=== PATIENT | female | born 1945 | race Caucasian/White ===

== ENCOUNTER 2017-09-23 13:40 | Inpatient (IN) | payer MEDICARE, OTHER ==
[2017-09-23 13:41] VITALS: BP 123/58; PULSE 84; RESP 18; TEMP 98.9; O2SAT 97
[2017-09-23 14:43] VITALS: BP 136/86; PULSE 92; RESP 18; O2SAT 98
--- NOTE | 2017-09-23 14:53 | PD ---
HPI Chief Complaint: General Weakness Time Seen by Provider: 14:13 Travel History International Travel<30 days: No Contact w/Intl Traveler<30days: No Traveled to known affect area: No History of Present Illness HPI 72-year-old female presents to the emergency department stating "I don't feel well". She states that she has not felt well for several months. She was seen in another hospital, [facility] in [place]. She was seen for the same symptoms. It appears they did a lot of lab work and she was slightly anemic with a hemoglobin of 10.9. Patient states that she felt more weak this morning that she typically does and she came in the emergency department. Patient denies any fevers or chills. She reports chronic headaches, has no headache at this time. She also reports chronic neck pain, has no neck pain at this time. She denies any back pain. No chest pain or shortness of breath. No abdominal pain. No nausea, vomiting, constipation. She does report 2 loose bowel movements in the past 24 hours. She denies any blood in her stool. Patient denies any pain at this time. Patient has history of anxiety, atrial fibrillation, hypertension, chronic anticoagulation, chronic narcotic use, chronic pain, hypothyroidism, insomnia. Patient denies any syncope, dizziness. No exacerbating or alleviating factors. She states that her appetite has been increasing. She recently moved here from [place] and then will be moving to [place]. She came here 1 week ago. Moderate severity. PFSH Past Medical History Hx Anticoagulant Therapy: Yes Atrial Fibrillation: Yes Anxiety: Yes Cardiovascular Problems: Yes (HTN, AFIB) Hypertension: Yes Insomnia: Yes ?: Not Social History Alcohol Use: Yes (on occasion) Tobacco Use: No Substance Use: No Allergies-Medications (Allergen,Severity, Reaction): Coded Allergies: No Known Allergies (Unverified , 09/23/17) Reported Meds & Prescriptions Reported Meds & Active Scripts Active Reported Buspirone (Buspirone HCl) 15 Mg Tab 15 Mg PO BID Klor-Con 10 (Potassium Chloride) 10 Meq Tab 10 Meq PO DAILY Xarelto (Rivaroxaban) 20 Mg Tab 20 Mg PO DAILY [Focus Factor] 1 Tab PO DAILY Melatonin 10 Mg Tablet 10 Mg PO HS Synthroid (Levothyroxine Sodium) 150 Mcg Tab 150 Mcg PO DAILY Heartburn Relief (Cimetidine) 200 Mg Tab 1 Tab PO BID PRN Arthritis Pain Reliever ER 8 HR (Acetaminophen) 650 Mg Tab 650 Mg PO Q8HR PRN Norvasc (Amlodipine Besylate) 5 Mg Tab 5 Mg PO DAILY Celexa (Citalopram Hydrobromide) 40 Mg Tab 40 Mg PO DAILY Diclofenac Sodium DR (Diclofenac Sodium) 75 Mg Tabdr 75 Mg PO BID Losartan-Hydrochlorothiazide 100-25 Mg Tab 1 Tab PO DAILY Cosopt Opth Drops (Dorzolamide-Timolol Opth Drops) 22.3-6.8 Mg/Ml Soln 1 Drop EACH EYE BID Lumigan Opth Drops (Bimatoprost) 0.01% Soln 1 Drop EACH EYE HS Review of Systems Except as stated in HPI: all other systems reviewed are Neg Physical Exam Narrative GENERAL: Well-nourished, well-developed female patient, afebrile. Patient is alert. She knew she was in the hospital, the year is 2016. However, she cannot remember the president and leave the month was July. Family states this is chronic for her. SKIN: Focused skin assessment warm/dry. No lacerations or abrasions. HEAD: Normocephalic. Atraumatic. ENT: Mucosa pink and moist. No erythema or exudates. No uvular edema. No uvular , palatal, or tonsillar deviation. Airway patent. Nasal turbinates appear normal without nasal blood, purulent drainage or septal hematoma. Bilateral tympanic membranes are clear without erythema or perforation. EYES: No scleral icterus. No injection or drainage. EOM intact. NECK: Supple, trachea midline. No JVD or lymphadenopathy. CARDIOVASCULAR: Regular rate and rhythm without murmurs, gallops, or rubs. Bilateral radial and pedal pulses are 2+. RESPIRATORY: Breath sounds equal bilaterally. No accessory muscle use. Lungs sounds are clear to auscultation. GASTROINTESTINAL: Abdomen soft, non-tender, nondistended. No abdominal tenderness to palpation. MUSCULOSKELETAL: No cyanosis, or edema. Bilateral upper and lower extremity strength 5/5. All extremities are neurovascularly intact. BACK: Nontender without obvious deformity. No CVA tenderness. No midline spinal tenderness. NEUROLOGICAL: Awake and alert. Cranial nerves II through XII intact. Motor and sensory grossly within normal limits. Five out of 5 muscle strength in all muscle groups. Normal speech. Finger to nose is normal bilaterally. Heel-to- todd is normal bilaterally. Data Data Last Documented VS Vital Signs Date Time Temp Pulse Resp B/P (MAP) Pulse Ox O2 Delivery O2 Flow Rate FiO2 09/23/17 16:29 67 19 143/84 (103) 96 Room Air 09/23/17 13:41 98.9 Orders Orders Electrocardiogram (09/23/17 13:44) Basic Metabolic Panel (Bmp) (09/23/17 13:44) Ckmb (Isoenzyme) Profile (09/23/17 13:44) Complete Blood Count With Diff (09/23/17 13:44) Magnesium (Mg) (09/23/17 13:44) Prothrombin Time / Inr (Pt) (09/23/17 13:44) Act Partial Throm Time (Ptt) (09/23/17 13:44) Troponin I (09/23/17 13:44) Chest, Pa & Lat (09/23/17 13:44) Ammonia (09/23/17 14:49) Urinalysis - C+S If Indicated (09/23/17 14:49) Ct Brain W/O Iv Contrast(Rout) (09/23/17 14:49) Blood Glucose (09/23/17 14:49) Ecg Monitoring (09/23/17 14:49) Iv Access Insert/Monitor (09/23/17 14:49) Oximetry (09/23/17 14:49) Sodium Chloride 0.9% Flush (Ns Flush) (09/23/17 15:00) Sodium Chlorid 0.9% 500 Ml Inj (Ns 500 M (09/23/17 15:00) Thyroid Stimulating Hormone (09/23/17 14:57) CKMB (09/23/17 14:14) CKMB% (09/23/17 14:14) Potassium Chloride (Kcl) (09/23/17 16:15) Sodium Chlorid 0.9% 500 Ml Inj (Ns 500 M (09/23/17 16:30) Thyroxine (T4) (09/23/17 16:23) Labs Laboratory Tests Test 09/23/17 14:14 09/23/17 14:56 White Blood Count 7.1 TH/MM3 Red Blood Count 3.33 MIL/MM3 Hemoglobin 13.1 GM/DL Hematocrit 36.0 % Mean Corpuscular Volume 108.2 FL Mean Corpuscular Hemoglobin 39.3 PG Mean Corpuscular Hemoglobin Concent 36.4 % Red Cell Distribution Width 13.3 % Platelet Count 372 TH/MM3 Mean Platelet Volume 7.7 FL Neutrophils (%) (Auto) 73.5 % Lymphocytes (%) (Auto) 15.9 % Monocytes (%) (Auto) 9.1 % Eosinophils (%) (Auto) 1.0 % Basophils (%) (Auto) 0.5 % Neutrophils # (Auto) 5.2 TH/MM3 Lymphocytes # (Auto) 1.1 TH/MM3 Monocytes # (Auto) 0.6 TH/MM3 Eosinophils # (Auto) 0.1 TH/MM3 Basophils # (Auto) 0.0 TH/MM3 CBC Comment AUTO DIFF Prothrombin Time 10.6 SEC Prothromb Time International Ratio 1.0 RATIO Activated Partial Thromboplast Time 26.6 SEC Blood Urea Nitrogen 12 MG/DL Creatinine 0.80 MG/DL Random Glucose 101 MG/DL Calcium Level 8.6 MG/DL Magnesium Level 1.8 MG/DL Sodium Level 118 MEQ/L Potassium Level 3.1 MEQ/L Chloride Level 85 MEQ/L Carbon Dioxide Level 28.2 MEQ/L Anion Gap 5 MEQ/L Estimat Glomerular Filtration Rate 70 ML/MIN Total Creatine Kinase 183 U/L Troponin I LESS THAN 0.02 NG/ML Ammonia 32 MCMOL/L Thyroid Stimulating Hormone 3rd Gen 27.400 uIU/ML MDM Medical Decision Making Medical Screen Exam Complete: Yes Emergency Medical Condition: Yes Medical Record Reviewed: Yes Interpretation(s) chest x-ray - CONCLUSION: 1. No acute cardiopulmonary disease. 2. Mild wedge-shaped deformity of likely T11 vertebral body of unknown chronicity given lack of prior exams. MRI examination may be performed to evaluate for bone marrow edema if patient has symptoms corresponding to this level. CT brain - CONCLUSION: 1. No acute intracranial abnormality is identified. 2. Chronic changes include moderate generalized atrophy and moderate to severe periventricular white matter low attenuation characteristic of chronic microvascular ischemia. Differential Diagnosis Electrolyte abnormality versus dehydration versus ACS versus intracranial abnormality versus thyroid disorder Narrative Course 72-year-old female presents to the emergency department for evaluation of generalized weakness that she has had for several months. However, she states it is worse today. She's had workup previously for the same issue at another hospital. EKG shows atrial fibrillation, heart rate 67, no acute ST changes. CBC, BMP, CK, troponin, magnesium, PTT, PT/INR, ammonia level, TSH, UA are ordered and pending. Chest x-ray and CT of the brain are ordered and pending. CBC shows normal WBC 7.1. BMP shows hyponatremia 118, hypokalemia of 3.1. CK is 183. Troponin is less than 0.02. Magnesium is 1.8. Coags are unremarkable. Ammonia level is 32. TSH is 27.400. Coags are unremarkable. UA is pending. Chest x-ray shows no acute cardiopulmonary disease; Mild wedge- shaped deformity of likely T11 vertebral body of unknown chronicity given lack of prior exams; MRI examination may be performed to evaluate for bone marrow edema if patient has symptoms corresponding to this level. Patient has no tenderness to palpation over her spine. CT of the brain shows No acute intracranial abnormality is identified; Chronic changes include moderate generalized atrophy and moderate to severe periventricular white matter low attenuation characteristic of chronic microvascular ischemia. Patient is given total of normal saline 1 L IV bolus. She was given potassium 40 mEq by mouth. Hospitalist is paged for admission. Dr. Kellogg accepted admission. Diagnosis Primary Impression: Hyponatremia Additional Impression: Generalized weakness Admitting Information Admitting Physician Requests: Admit Tita Giron Sep 23, 2017 14:53
[2017-09-23] MEDS ORDERED: SODIUM CHLORID 0.9% 500 ML INJ 500 ML IV ONE ×2 (15:00→16:30)
[2017-09-23] MEDS ORDERED: SODIUM CHLORIDE 0.9% FLUSH 10 ML FLUSH IV FLUSH PRN (15:00)
[2017-09-23 15:09] VITALS: RESP 18; O2SAT 98
[2017-09-23 15:26] LABS: AUTOMATED NEUTROPHIL # 5.2 TH/MM3 (1.8-7.7); BASOPHIL % 0.5 % (0.0-2.0); EOSINOPHIL # 0.1 TH/MM3 (0-0.4); LYMPH % 15.9 % (9.0-44.0); LYMPHOCYTE # 1.1 TH/MM3 (1.0-4.8); MEAN CELL VOLUME 108.2 FL (80.0-100.0); MEAN CORPUSCULAR HEMOGLOBIN 39.3 PG (27.0-34.0); MONO % 9.1 % (0.0-8.0); NEUT % 73.5 % (16.0-70.0); PLATELET COUNT 372 TH/MM3 (150-450); RED BLOOD COUNT 3.33 MIL/MM3 (4.00-5.30); RED CELL DISTRIBUTION WIDTH 13.3 % (11.6-17.2); WHITE BLOOD COUNT 7.1 TH/MM3 (4.0-11.0)
--- NOTE | 2017-09-23 15:31 | RADRPT ---
EXAM DATE/TIME: 09/23/2017 14:10 [facility] COMPARISON: No previous studies available for comparison. INDICATIONS : General weakness and shortness of breath. MEDICAL HISTORY : Hypertension. AFIB. SURGICAL HISTORY : None. ENCOUNTER: Initial ACUITY: 1 week PAIN SCORE: 3/10 LOCATION: Bilateral chest FINDINGS: PA and lateral views of the chest demonstrate the lungs to be symmetrically aerated without evidence of mass, infiltrate or effusion. The cardiomediastinal contours are unremarkable. Mild wedge-shaped compression deformity of likely T11 vertebral body. Extensive degenerative changes of the right shoul khang. CONCLUSION: 1. No acute cardiopulmonary disease. 2. Mild wedge-shaped deformity of likely T11 vertebral body of unknown chronicity given lack of prior exams. MRI examination may be performed to evaluate for bone marrow edema if patient has symptoms correspond ing to this level. Calvin Lynch MD on September 23, 2017 at 15:27 Board Certified Radiologist. This report was verified electronically.
[2017-09-23 15:32] LABS: HEMO FLAGS AUTO DIFF; MEAN CORPUSCULAR HGB CONC 36.4 % (32.0-36.0)
[2017-09-23 15:34] LABS: APTT (PATIENT) 26.6 SEC (24.3-30.1); PROTHROMBIN TIME - PATIENT 10.6 SEC (9.8-11.6)
--- NOTE | 2017-09-23 15:47 | RADRPT ---
EXAM DATE/TIME: 09/23/2017 15:15 [facility] COMPARISON: No previous studies available for comparison. INDICATIONS : General weakness, worsening confusion for one week. RADIATION DOSE: 36.20 CTDIvol (mGy) MEDICAL HISTORY : Hypertension. A-fib SURGICAL HISTORY : None. ENCOUNTER: Initial ACUITY: 1 week PAIN SCALE: 0/10 LOCATION: cranial TECHNIQUE: Multiple contiguous axial images were obtained of the head. Using automated exposure control and adj ustment of the mA and/or kV according to patient size, radiation dose was kept as low as reasonably a chievable to obtain optimal diagnostic quality images. DICOM format image data is available electro nically for review and comparison. FINDINGS: CEREBRUM: There is moderate generalized atrophy. Ventricles are normal in size given the degree of atrophy pres ent. Moderate to severe periventricular and subcortical white matter signal changes present. No midl ine shift, mass lesion, hemorrhage or acute infarction. No extra-axial fluid collections are seen. POSTERIOR FOSSA: The cerebellum and brainstem demonstrate no acute finding. The 4th ventricle is midline. The cerebe llopontine angle is unremarkable. EXTRACRANIAL: Visualized sinuses are clear. SKULL: The calvaria is intact. No evidence of skull fracture. CONCLUSION: 1. No acute intracranial abnormality is identified. 2. Chronic changes include moderate generalized atrophy and moderate to severe periventricular white matter low attenuation characteristic of chronic microvascular ischemia. Jose L Gillespie MD on September 23, 2017 at 15:42 Board Certified Radiologist. This report was verified electronically.
[2017-09-23 16:05] LABS: ANION GAP 5 MEQ/L (5-15); BICARBONATE 28.2 MEQ/L (21.0-32.0); BLOOD UREA NITROGEN 12 MG/DL (7-18); CHLORIDE 85 MEQ/L (98-107); CREATINE KINASE 183 U/L (26-192); GLOMERULAR FILTRATION RATE 70 ML/MIN (>89); MAGNESIUM 1.8 MG/DL (1.5-2.5); POTASSIUM 3.1 MEQ/L (3.5-5.1)
[2017-09-23 16:08] LABS: SODIUM (NA) 118 MEQ/L (136-145)
[2017-09-23] MEDS ORDERED: XARE20TA PO (16:09)
[2017-09-23] MEDS ORDERED: HEARTAB PO (16:09)
[2017-09-23] MEDS ORDERED: KLOR10TA PO (16:09)
[2017-09-23] MEDS ORDERED: DICL75TA PO (16:09)
[2017-09-23] MEDS ORDERED: AMLO5 PO (16:09)
[2017-09-23] MEDS ORDERED: LOSA100T2 PO (16:09)
[2017-09-23] MEDS ORDERED: LUMI0.01 EACH EYE (16:09)
[2017-09-23] MEDS ORDERED: FOCUS FACTOR PO (16:09)
[2017-09-23] MEDS ORDERED: ARTH650T6 PO (16:09)
[2017-09-23] MEDS ORDERED: MELA10TA4 PO (16:09)
[2017-09-23] MEDS ORDERED: CELE40TA PO (16:09)
[2017-09-23] MEDS ORDERED: LEVO.15 PO (16:09)
[2017-09-23] MEDS ORDERED: DORZ2SOL7 EACH EYE (16:09)
--- NOTE | 2017-09-23 16:11 | PD ---
Physical Exam Narrative I, Dr. Navarro, have reviewed the advance practice practitioner's documentation and am in agreement, met with the patient face to face, made the diagnosis, and the medical decision making was done by me. *My assessment and Findings: Electrolyte abnormality vs. hypothyroidism vs. dehydration vs. dementia vs. delirium vs. UTI 72yo F with PMH of afib on xarelto, hypothyroidism here with c/o generalized weakness that is worst today. Pt is from [place] and visiting sister here. Sister said she has been with her for 1 week and there have been episodes of confusion. For example, pt would ask her what room she was in but she was just there. Labs reviewed, no leukocytosis. Hyponatremic at 118, no prior to compare. Hypokalemia at 3.1, replaced orally. Troponin negative. TSH elevated , T4 ordered. Ammonia 32. CT brain negative. CXR showed no acute cardiopulmonary disease. Wedge shape deformity likely T11 vertebral body of unknown chronicity. Pt has no back pain. No focal neurologic deficits. Pt given NS IVF. To be admitted for severe hyponatremia. UA pending. Data Data Last Documented VS Vital Signs Date Time Temp Pulse Resp B/P (MAP) Pulse Ox O2 Delivery O2 Flow Rate FiO2 09/23/17 16:29 67 19 143/84 (103) 96 Room Air 09/23/17 13:41 98.9 Orders Orders Electrocardiogram (09/23/17 13:44) Basic Metabolic Panel (Bmp) (09/23/17 13:44) Ckmb (Isoenzyme) Profile (09/23/17 13:44) Complete Blood Count With Diff (09/23/17 13:44) Magnesium (Mg) (09/23/17 13:44) Prothrombin Time / Inr (Pt) (09/23/17 13:44) Act Partial Throm Time (Ptt) (09/23/17 13:44) Troponin I (09/23/17 13:44) Chest, Pa & Lat (09/23/17 13:44) Ammonia (09/23/17 14:49) Urinalysis - C+S If Indicated (09/23/17 14:49) Ct Brain W/O Iv Contrast(Rout) (09/23/17 14:49) Blood Glucose (09/23/17 14:49) Ecg Monitoring (09/23/17 14:49) Iv Access Insert/Monitor (09/23/17 14:49) Oximetry (09/23/17 14:49) Sodium Chloride 0.9% Flush (Ns Flush) (09/23/17 15:00) Sodium Chlorid 0.9% 500 Ml Inj (Ns 500 M (09/23/17 15:00) Thyroid Stimulating Hormone (09/23/17 14:57) CKMB (09/23/17 14:14) CKMB% (09/23/17 14:14) Potassium Chloride (Kcl) (09/23/17 16:15) Sodium Chlorid 0.9% 500 Ml Inj (Ns 500 M (09/23/17 16:30) Thyroxine (T4) (09/23/17 16:23) Admit Order (Ed Use Only) (09/23/17 16:34) Labs Laboratory Tests Test 09/23/17 14:14 09/23/17 14:56 09/23/17 16:17 White Blood Count 7.1 TH/MM3 Red Blood Count 3.33 MIL/MM3 Hemoglobin 13.1 GM/DL Hematocrit 36.0 % Mean Corpuscular Volume 108.2 FL Mean Corpuscular Hemoglobin 39.3 PG Mean Corpuscular Hemoglobin Concent 36.4 % Red Cell Distribution Width 13.3 % Platelet Count 372 TH/MM3 Mean Platelet Volume 7.7 FL Neutrophils (%) (Auto) 73.5 % Lymphocytes (%) (Auto) 15.9 % Monocytes (%) (Auto) 9.1 % Eosinophils (%) (Auto) 1.0 % Basophils (%) (Auto) 0.5 % Neutrophils # (Auto) 5.2 TH/MM3 Lymphocytes # (Auto) 1.1 TH/MM3 Monocytes # (Auto) 0.6 TH/MM3 Eosinophils # (Auto) 0.1 TH/MM3 Basophils # (Auto) 0.0 TH/MM3 CBC Comment AUTO DIFF Differential Comment AUTO DIFF CONFIRMED Prothrombin Time 10.6 SEC Prothromb Time International Ratio 1.0 RATIO Activated Partial Thromboplast Time 26.6 SEC Blood Urea Nitrogen 12 MG/DL Creatinine 0.80 MG/DL Random Glucose 101 MG/DL Calcium Level 8.6 MG/DL Magnesium Level 1.8 MG/DL Sodium Level 118 MEQ/L Potassium Level 3.1 MEQ/L Chloride Level 85 MEQ/L Carbon Dioxide Level 28.2 MEQ/L Anion Gap 5 MEQ/L Estimat Glomerular Filtration Rate 70 ML/MIN Total Creatine Kinase 183 U/L Creatine Kinase MB 3.7 NG/ML Troponin I LESS THAN 0.02 NG/ML Ammonia 32 MCMOL/L Thyroid Stimulating Hormone 3rd Gen 27.400 uIU/ML Urine Color YELLOW Urine Turbidity HAZY Urine pH 6.5 Urine Specific [place] 1.009 Urine Protein NEG mg/dL Urine Glucose (UA) NEG mg/dL Urine Ketones TRACE mg/dL Urine Occult Blood NEG Urine Nitrite POS Urine Bilirubin NEG Urine Urobilinogen LESS THAN 2.0 MG/DL Urine Leukocyte Esterase MOD Urine RBC 1 /hpf Urine WBC 4 /hpf Urine Squamous Epithelial Cells <1 /hpf Urine Amorphous Sediment RARE Urine Bacteria MANY /hpf Urine Mucus FEW /lpf Microscopic Urinalysis Comment CATH-CULTURE IND MDM Supervised Visit with LORIE: Yes Interpretation(s) EKG: Afib at 67bpm. Diagnosis Primary Impression: Hyponatremia Admitting Information Admitting Physician Requests: Admit Erica Navarro DO Sep 23, 2017 16:10
[2017-09-23] MEDS ORDERED: POTASSIUM CHLORIDE 20 MEQ CONTROLLED RELEASE TAB PO ONE (16:15)
[2017-09-23 16:29] VITALS: BP 143/84; PULSE 67; RESP 19; O2SAT 96
[2017-09-23] MEDS ORDERED: BUSP15TA PO (16:32)
[2017-09-23 16:40] LABS: CKMB 3.7 NG/ML (0.5-3.6)
[2017-09-23 16:42] LABS: BACTERIA, URINE MANY /hpf; BLOOD, URINE NEG (NEG); COMMENT (UR) CATH-CULTURE IND; CULTURE IF INDICATED CATH CULTURE IND; GLUCOSE,URINE NEG (NEG); KETONE, URINE TRACE mg/dL (NEG); MUCUS URINE FEW /lpf (OCC); NITRITE,URINE POS (NEG); PH, URINE 6.5 (5.0-8.5); SQUAMOUS EPITHELIAL CELL URINE <1 /hpf (0-5); URINE COLOR YELLOW (YELLW/STRAW)
[2017-09-23 17:12] LABS: SCAN/DIFF AUTO DIFF CONFIRMED
[2017-09-23] MEDS ORDERED: BISACODYL 10 MG SUPP RECTAL PRN (17:45)
[2017-09-23] MEDS ORDERED: ONDANSETRON HCL 4 MG/2 ML VIAL IVP PRN (17:45)
[2017-09-23] MEDS ORDERED: ACETAMINOPHEN 325 MG TAB PO PRN (17:45)
[2017-09-23] MEDS ORDERED: MAGNESIUM HYDROXIDE SUSP 30 ML CUP PO PRN (17:45)
[2017-09-23] MEDS ORDERED: NALOXONE HCL 0.4 MG/ML AMP IV PUSH PRN (17:45)
--- NOTE | 2017-09-23 18:05 | HHI.HP ---
HPI Service [facility] Primary Care Physician No Primary Care Physician Admission Diagnosis hyponatremia, generalized weakness Diagnoses: Chief Complaint: Generalized weakness Travel History International Travel<30 Days: No Contact w/Intl Traveler <30 Da: No Traveled to Known Affected Are: No History of Present Illness Patient is a 72-year-old female with primary medical history of atrial fibrillation on Xarelto, HTN, anxiety, cataracts, glaucoma, hypothyroidism who came into the hospital for evaluation of generalized weakness and overall not feeling well. Patient states that for the past a week and a half she has not been feeling really well that she went to [facility] in [place] to be evaluated where and he did multiple labs on her, and have some anemia with hemoglobin 10.9. Patient states that she feels the same way from last week and that she has increasing neck pain. Patient also complaints of headache states tension related and palpitation and anxiety related. States headache comes from the back of her head going to the front but she attributes it that she is feeling hungry right now. Denies any numbness or tingling sensation. Denies unilateral weakness, denies change in vision. Denies any chest pain, palpitations, dizziness. Denies any abdominal pain, cramping, nausea, vomiting , diarrhea. Denies any fevers or chills. Denies falls, trauma. Sister at the bedside. Noted that patient is more confused in the past 2 days. She also has been noted to be drinking a lot of water possibly more than 2 L a day that is not her usual. Review of Systems Except as stated in HPI: all other systems reviewed are Neg Past Family Social History Past Medical History A. fib on Xarelto HTN Anxiety Cataracts Glaucoma Hypothyroidism Past Surgical History Bilateral knee replacements Bilateral knee arthroscopy Tonsillectomy Reported Medications Reported Meds & Active Scripts Active Reported Buspirone (Buspirone HCl) 15 Mg Tab 15 Mg PO BID Klor-Con 10 (Potassium Chloride) 10 Meq Tab 10 Meq PO DAILY Xarelto (Rivaroxaban) 20 Mg Tab 20 Mg PO DAILY [Focus Factor] 1 Tab PO DAILY Melatonin 10 Mg Tablet 10 Mg PO HS Synthroid (Levothyroxine Sodium) 150 Mcg Tab 150 Mcg PO DAILY Heartburn Relief (Cimetidine) 200 Mg Tab 1 Tab PO BID PRN Arthritis Pain Reliever ER 8 HR (Acetaminophen) 650 Mg Tab 650 Mg PO Q8HR PRN Norvasc (Amlodipine Besylate) 5 Mg Tab 5 Mg PO DAILY Celexa (Citalopram Hydrobromide) 40 Mg Tab 40 Mg PO DAILY Diclofenac Sodium DR (Diclofenac Sodium) 75 Mg Tabdr 75 Mg PO BID Losartan-Hydrochlorothiazide 100-25 Mg Tab 1 Tab PO DAILY Cosopt Opth Drops (Dorzolamide-Timolol Opth Drops) 22.3-6.8 Mg/Ml Soln 1 Drop EACH EYE BID [place] Opth Drops (Bimatoprost) 0.01% Soln 1 Drop EACH EYE HS Allergies: Coded Allergies: No Known Allergies (Unverified , 09/23/17) Active Ordered Medications Current Medications Medications (Trade) Dose Ordered Sig/Lemuel Route Start Time Stop Time Status Last Admin (NS Flush) 2 ml UNSCH PRN IV FLUSH 09/23/17 15:00 Family History Mother had rheumatoid arthritis and stroke Family has hypothyroidism, hypertension Social History Lives in [place], as per sister she [place] in [place] area. She comes down to [place] during September and goes back up in October to [place] for 3 months to another sister before moving back to [place] Reports occasional alcohol use Denies tobacco use Denies illicit drug use Physical Exam Vital Signs Vital Signs Date Time Temp Pulse Resp B/P (MAP) Pulse Ox O2 Delivery O2 Flow Rate FiO2 09/23/17 16:29 67 19 143/84 (103) 96 Room Air 09/23/17 15:09 18 98 Room Air 09/23/17 14:43 92 18 136/86 (103) 98 Room Air 09/23/17 14:38 72 18 99 Room Air 09/23/17 13:41 98.9 84 18 123/58 (79) 97 Physical Exam GENERAL: This is an obese, well-developed patient, in no apparent distress. SKIN: No rashes, ecchymoses or lesions. Cool and dry. HEAD: Normocephalic. No temporal or scalp tenderness. No facial droop noted. Intact sensation. EYES: Pupils equal round and reactive. Extraocular motions intact. No scleral icterus. No injection or drainage. ENT: Nose without bleeding. Throat without erythema. Uvula midline. Airway patent. Tongue midline. NECK: Trachea midline. CARDIOVASCULAR: Irregular heart rate without murmurs, gallops, or rubs. RESPIRATORY: Clear to auscultation. Breath sounds equal bilaterally. No wheezes , rales, or rhonchi. GASTROINTESTINAL: Abdomen soft, non-tender, nondistended. No guarding. Bowel sounds active 4. MUSCULOSKELETAL: Extremities without clubbing, cyanosis, or edema. No joint tenderness, effusion, or edema noted. No calf tenderness. Negative Homans sign bilaterally. NEUROLOGICAL: Awake and alert. Oriented to to person, city knows that she is in [place], knows the month is August, knows the year is 2016. Cranial nerves II through XII intact. Motor and sensory grossly within normal limits. 4 /5 muscle strength in all muscle groups. Normal speech. Laboratory Laboratory Tests Test 09/23/17 14:14 09/23/17 14:56 09/23/17 16:17 White Blood Count 7.1 Red Blood Count 3.33 Hemoglobin 13.1 Hematocrit 36.0 Mean Corpuscular Volume 108.2 Mean Corpuscular Hemoglobin 39.3 Mean Corpuscular Hemoglobin Concent 36.4 Red Cell Distribution Width 13.3 Platelet Count 372 Mean Platelet Volume 7.7 Neutrophils (%) (Auto) 73.5 Lymphocytes (%) (Auto) 15.9 Monocytes (%) (Auto) 9.1 Eosinophils (%) (Auto) 1.0 Basophils (%) (Auto) 0.5 Neutrophils # (Auto) 5.2 Lymphocytes # (Auto) 1.1 Monocytes # (Auto) 0.6 Eosinophils # (Auto) 0.1 Basophils # (Auto) 0.0 CBC Comment AUTO DIFF Differential Comment AUTO DIFF CONFIRMED Prothrombin Time 10.6 Prothromb Time International Ratio 1.0 Activated Partial Thromboplast Time 26.6 Blood Urea Nitrogen 12 Creatinine 0.80 Random Glucose 101 Calcium Level 8.6 Magnesium Level 1.8 Sodium Level 118 Potassium Level 3.1 Chloride Level 85 Carbon Dioxide Level 28.2 Anion Gap 5 Estimat Glomerular Filtration Rate 70 Total Creatine Kinase 183 Creatine Kinase MB 3.7 Troponin I LESS THAN 0.02 Ammonia 32 Thyroid Stimulating Hormone 3rd Gen 27.400 Urine Color YELLOW Urine Turbidity HAZY Urine pH 6.5 Urine Specific [place] 1.009 Urine Protein NEG Urine Glucose (UA) NEG Urine Ketones TRACE Urine Occult Blood NEG Urine Nitrite POS Urine Bilirubin NEG Urine Urobilinogen LESS THAN 2.0 Urine Leukocyte Esterase MOD Urine RBC 1 Urine WBC 4 Urine Squamous Epithelial Cells <1 Urine Amorphous Sediment RARE Urine Bacteria MANY Urine Mucus FEW Microscopic Urinalysis Comment CATH-CULTURE IND Date/Time Source Procedure Growth Status 09/23/17 16:17 Urine Catheterized Urine Urine Culture Pending Received Result Diagram: 09/23/17 1414 09/23/17 1414 Imaging Last Impressions Head CT 09/23/17 1449 Signed Impressions: Service Date/Time: Saturday, September 23, 2017 15:15 - CONCLUSION: 1. No acute intracranial abnormality is identified. 2. Chronic changes include moderate generalized atrophy and moderate to severe periventricular white matter low attenuation characteristic of chronic microvascular ischemia. Jose L Gillespie MD Chest X-Ray 09/23/17 1344 Signed Impressions: Service Date/Time: Saturday, September 23, 2017 14:10 - CONCLUSION: 1. No acute cardiopulmonary disease. 2. Mild wedge-shaped deformity of likely T11 vertebral body of unknown chronicity given lack of prior exams. MRI examination may be performed to evaluate for bone marrow edema if patient has symptoms corresponding to this level. MD Jenaro Morales VTE Risk Assessment Caprini VTE Risk Assessment: Mod/High Risk (score >= 2) Caprini Risk Assessment Model Point Value = 1 Point Value = 2 Point Value = 3 Point Value = 5 Age 41-60 Minor surgery BMI > 25 kg/m2 Swollen legs Varicose veins or History of unexplained or recurrent spontaneous Oral contraceptives or hormone replacement Sepsis (< 1 month) Serious lung disease, including pneumonia (< 1 month) Abnormal pulmonary function Acute myocardial infarction Congestive heart failure (< 1 month) History of inflammatory bowel disease Medical patient at bed rest Age 61-74 Arthroscopic surgery Major open surgery (> 45 min) Laparoscopic surgery (> 45 min) Malignancy Confined to bed (> 72 hours) Immobilizing plaster cast Central venous access Age >= 75 History of VTE Family history of VTE Factor V Leiden Prothrombin [id number] Lupus anticoagulant Anticardiolipin antibodies Elevated serum homocysteine Heparin-induced thrombocytopenia Other congenital or acquired thrombophilia Stroke (< 1 month) Elective arthroplasty Hip, pelvis, or leg fracture Acute spinal cord injury (< 1 month) Prophylaxis Regimen Total Risk Factor Score Risk Level Prophylaxis Regimen 0-1 Low Early ambulation 2 Moderate Order ONE of the following: *Sequential Compression Device (SCD) *Heparin 5000 units SQ BID 3-4 Higher Order ONE of the following medications: *Heparin 5000 units SQ TID *Enoxaparin/Lovenox 40 mg SQ daily (WT < 150 kg, CrCl > 30 mL/min) *Enoxaparin/Lovenox 30 mg SQ daily (WT < 150 kg, CrCl > 10-29 mL/min) *Enoxaparin/Lovenox 30 mg SQ BID (WT < 150 kg, CrCl > 30 mL/min) AND/OR *Sequential Compression Device (SCD) 5 or more Highest Order ONE of the following medications: *Heparin 5000 units SQ TID (Preferred with Epidurals) *Enoxaparin/Lovenox 40 mg SQ daily (WT < 150 kg, CrCl > 30 mL/min) *Enoxaparin/Lovenox 30 mg SQ daily (WT < 150 kg, CrCl > 10-29 mL/min) *Enoxaparin/Lovenox 30 mg SQ BID (WT < 150 kg, CrCl > 30 mL/min) AND *Sequential Compression Device (SCD) Assessment and Plan Problem List: (1) Hypokalemia ICD Code: E87.6 - Hypokalemia Status: Acute (2) HTN (hypertension) ICD Code: I10 - Essential (primary) hypertension Status: Chronic (3) Afib ICD Code: I48.91 - Unspecified atrial fibrillation Status: Chronic (4) UTI (urinary tract infection) ICD Code: N39.0 - Urinary tract infection, site not specified Status: Acute (5) Hyponatremia ICD Code: E87.1 - Hypo-osmolality and hyponatremia Status: Acute (6) Generalized weakness ICD Code: R53.1 - Weakness Status: Acute Assessment and Plan Patient is a 72-year-old female with primary medical history of atrial fibrillation on Xarelto, HTN, anxiety, cataracts, glaucoma, hypothyroidism who came into the hospital for evaluation of generalized weakness and overall not feeling well. Severe hypo-natremia, unclear duration Metabolic encephalopathy - Noted to be confused by sister. - Sodium 118 on admission. She was at [facility] a week and a half ago with sodium levels of 135. - Patient was given IV fluid bolus in the ED. - Patient has symptom of confusion and headache, May benefit with 100 ML bolus of 3% saline, over the course of 30 minutes. - Continue with IV fluids NS 100 ML's an hour - Limit fluid intake. Monitor I's and O's. Neuro checks. Seizure precaution. - Avoid overcorrection due to increased risk of osmotic demyelination syndrome (ODS) - Recheck serum sodium tonight and tomorrow Hypokalemia - Potassium replacement - Check magnesium level - Monitor electrolytes Urinary tract infection, cystitis - UA positive, cultures pending follow-up results - Start Rocephin IV for now -May Also contributed to encephalopathy/ AMS. Hypothyroidism - TSH 27.4, check T4 - Continue levothyroxine 150 g for now we will adjust based on results of T4. Atrial fibrillation, chronic, rate controlled HTN, chronic - Continue home medication - Monitor BP trend Anxiety, depression - Continue home medication Glaucoma, cataract - Continue home medication DVT prop SCDs, Xarelto Code Status Full code Discussed Condition With Patient, sister, nursing, Dr. Kellogg Physician Certification 2 Midnight Certification Type: Admission for Inpatient Services Order for Inpatient Services The services are ordered in accordance with Medicare regulations or non- Medicare payer requirements, as applicable. In the case of services not specified as inpatient-only, they are appropriately provided as inpatient services in accordance with the 2-midnight benchmark. Estimated LOS (days): 2 2 days is the estimated time the patient will need to remain in the hospital, assuming treatment plan goals are met and no additional complications. Post-Hospital Plan: Home Ilene Schneider Sep 23, 2017 18:05 Kell Kellogg MD Sep 28, 2017 04:56
[2017-09-23] MEDS ORDERED: 3% SALINE INJ 100 ML IV ONE (18:15)
[2017-09-23] MEDS: cefTRIAXone INJ 2,000 MG in SODIUM CHLORIDE 0.9% INJ 100 ML IV SCH (18:29)
[2017-09-23] MEDS: SODIUM CHLOR 0.9% 1000 ML INJ 1,000 ML IV SCH (18:29)
[2017-09-23 20:11] VITALS: BP 118/61; PULSE 72; RESP 17; TEMP 98.1; O2SAT 98
[2017-09-23] MEDS: busPIRone HCL 5 MG TAB PO SCH (21:47)
[2017-09-23] MEDS: LATANOPROST 0.005% OPHT SOLN 2.5 ML BTL EACH EYE SCH (21:47)
[2017-09-23] MEDS: DORZOLAMIDE/TIMOLOL OPTH SOLN 10 ML BTL EACH EYE SCH (21:47)
[2017-09-23] MEDS: DOCUSATE SODIUM 50 MG/SENNA 8.6 MG TAB PO SCH (21:48)
[2017-09-23 23:40] LABS: BICARBONATE 27.9 MEQ/L (21.0-32.0); POTASSIUM 3.2 MEQ/L (3.5-5.1)
[2017-09-24] VITALS (10 sets, daily range): BP systolic 117–163; BP diastolic 70–83; PULSE 57–77; RESP 17–20; TEMP 97.9–99.5; O2SAT 96–100
[2017-09-24] MEDS: SODIUM CHLOR 0.9% 1000 ML INJ 1,000 ML IV SCH ×3 (04:00→19:50)
[2017-09-24] MEDS: LEVOTHYROXINE SODIUM 150 MCG TAB PO SCH (05:00)
[2017-09-24 06:14] LABS: AUTOMATED NEUTROPHIL # 5.2 TH/MM3 (1.8-7.7); BASOPHIL % 0.2 % (0.0-2.0); EOSINOPHIL # 0.1 TH/MM3 (0-0.4); HEMATOCRIT 35.8 % (35.0-46.0); HEMO FLAGS DIFF FINAL; LYMPH % 11.8 % (9.0-44.0); LYMPHOCYTE # 0.8 TH/MM3 (1.0-4.8); MEAN CORPUSCULAR HEMOGLOBIN 38.8 PG (27.0-34.0); MEAN CORPUSCULAR HGB CONC 35.3 % (32.0-36.0); MONO % 9.4 % (0.0-8.0); NEUT % 77.6 % (16.0-70.0); PLATELET COUNT 303 TH/MM3 (150-450); RED BLOOD COUNT 3.25 MIL/MM3 (4.00-5.30); RED CELL DISTRIBUTION WIDTH 13.3 % (11.6-17.2); WHITE BLOOD COUNT 6.7 TH/MM3 (4.0-11.0)
[2017-09-24 06:45] LABS: ALKALINE PHOSPHATASE 56 U/L (45-117); ALT (GPT) 16 U/L (10-53); ANION GAP 7 MEQ/L (5-15); AST (GOT) 32 U/L (15-37); BICARBONATE 25.6 MEQ/L (21.0-32.0); BLOOD UREA NITROGEN 9 MG/DL (7-18); CHLORIDE 90 MEQ/L (98-107); GLOMERULAR FILTRATION RATE 89 ML/MIN (>89); POTASSIUM 3.1 MEQ/L (3.5-5.1); TOTAL BILIRUBIN ADULT 1.1 MG/DL (0.2-1.0)
[2017-09-24 06:49] LABS: SODIUM (NA) 123 MEQ/L (136-145)
[2017-09-24] MEDS ORDERED: POTASSIUM CHLORIDE 25 MEQ EFFERVESCENT TAB PO ONE (08:00)
[2017-09-24] MEDS: DOCUSATE SODIUM 50 MG/SENNA 8.6 MG TAB PO SCH ×2 (08:12→19:50)
[2017-09-24] MEDS: busPIRone HCL 5 MG TAB PO SCH ×2 (08:12→19:50)
[2017-09-24] MEDS: amLODIPine BESYLATE 5 MG TAB PO SCH (08:12)
[2017-09-24] MEDS: CITALOPRAM HYDROBROMIDE 40 MG TAB PO SCH (08:12)
[2017-09-24] MEDS: RIVAROXABAN 20 MG TAB PO SCH (08:13)
[2017-09-24] MEDS: DORZOLAMIDE/TIMOLOL OPTH SOLN 10 ML BTL EACH EYE SCH ×2 (08:13→19:51)
--- NOTE | 2017-09-24 09:52 | HHI.PR ---
Subjective Remarks Follow-up for altered mental status, hyponatremia, UTI Patient has no complaints. She was able to tell me why she is in the hospital. She is AAO 4. Patient denies any urinary symptoms but stated that she knows that one of her diagnosis. Otherwise no events overnight. She remains afebrile. Objective Vitals Vital Signs Date Time Temp Pulse Resp B/P (MAP) Pulse Ox O2 Delivery O2 Flow Rate FiO2 09/24/17 08:00 98.2 69 17 163/83 (109) 97 09/24/17 04:11 97.9 72 17 117/72 (87) 98 09/24/17 04:00 57 09/24/17 00:33 65 09/24/17 00:11 98.3 65 17 137/70 (92) 100 09/23/17 20:11 98.1 72 17 118/61 (80) 98 09/23/17 16:29 67 19 143/84 (103) 96 Room Air 09/23/17 15:09 18 98 Room Air 09/23/17 14:43 92 18 136/86 (103) 98 Room Air 09/23/17 14:38 72 18 99 Room Air 09/23/17 13:41 98.9 84 18 123/58 (79) 97 I/O 09/23/17 09/23/17 09/23/17 09/24/17 09/24/17 09/24/17 07:00 15:00 23:00 07:00 15:00 23:00 Intake Total 460 ml 340 ml Balance 460 ml 340 ml Intake Oral 360 ml 240 ml IV Total 100 ml 100 ml # Voids 1 3 # Bowel Movements 1 0 Result Diagram: 09/24/17 0545 09/24/17 0545 Objective Remarks GENERAL: in NAD CARDIOVASCULAR: Regular rate and rhythm without murmurs, gallops, or rubs. RESPIRATORY: Breath sounds equal bilaterally. No accessory muscle use. GASTROINTESTINAL: Abdomen soft, non-tender, nondistended. MUSCULOSKELETAL: No cyanosis, or edema. BACK: Nontender without obvious deformity. No CVA tenderness. NEURO: AAO X 4. CN 2-12 intact. motor and sensation intact. Medications and IVs Current Medications Sodium Chloride (NS Flush) 2 ml UNSCH PRN IV FLUSH FLUSH AFTER USING IV ACCESS ; Start 09/23/17 at 15:00 Sodium Chloride 500 ml @ 500 mls/hr BOLUS ONCE IV Last administered on 15:08; Start 09/23/17 at 15:00; Stop 09/23/17 at 15:59; Status DC Potassium Chloride (KCl) 40 meq ONCE ONCE PO Last administered on 09/23/17 16 :30; Start 09/23/17 at 16:15; Stop 09/23/17 at 16:16; Status DC Sodium Chloride 500 ml @ 500 mls/hr BOLUS ONCE IV Last administered on 16:31; Start 09/23/17 at 16:30; Stop 09/23/17 at 17:29; Status DC Sodium Chloride 1,000 ml @ 100 mls/hr Q10H IV Last administered on 09/24/17 04:00; Start 09/23/17 at 18:00 Acetaminophen (Tylenol) 650 mg Q4H PRN PO TEMP > 100.4; Start 09/23/17 at 17:45 Ondansetron HCl (Zofran Inj) 4 mg Q6H PRN IVP NAUSEA OR VOMITING; Start at 17:45 Naloxone HCl (Narcan Inj) 0.4 mg UNSCH PRN IV PUSH SEE LABEL COMMENTS; Start 09/23/17 at 17:45 Senna/Docusate Sodium (Bhavya-Colace) 1 tab BID PO Last administered on 08:12; Start 09/23/17 at 21:00 Magnesium Hydroxide (Milk Of Magnesia Liq) 30 ml Q12H PRN PO Mild constipation ; Start 09/23/17 at 17:45 Bisacodyl (Dulcolax Supp) 10 mg DAILY PRN RECTAL SEVERE CONSITIPATION; Start 09/23/17 at 17:45 Ceftriaxone Sodium 2000 mg/ Sodium Chloride 100 ml @ 200 mls/hr Q24H IV Last administered on 09/23/17 18:29; Start 09/23/17 at 18:00 Sodium Chloride 100 ml @ 50 mls/hr ONCE ONCE IV Last administered on 21:46; Start 09/23/17 at 18:15; Stop 09/23/17 at 20:14; Status DC Amlodipine Besylate (Norvasc) 5 mg DAILY PO Last administered on 09/24/17 08: 12; Start 09/24/17 at 09:00 Buspirone HCl (Buspar) 15 mg BID PO Last administered on 09/24/17 08:12; Start 09/23/17 at 21:00 Citalopram Hydrobromide (CeleXA) 40 mg DAILY PO Last administered on 09/24/17 08:12; Start 09/24/17 at 09:00 Dorzolamide/ Timolol (Cosopt 2-0.5% Opt Soln) 1 drop BID EACH EYE Last administered on 09/24/17 08:13; Start 09/23/17 at 21:00 Levothyroxine Sodium (Synthroid) 150 mcg DAILY@0600 PO Last administered on 05:00; Start 09/24/17 at 06:00 Rivaroxaban (Xarelto) 20 mg DAILY PO Last administered on 09/24/17 08:13; Start 09/24/17 at 09:00 Latanoprost (Xalatan 0.005% Opt Soln) 1 drop HS EACH EYE Last administered on 09/23/17 21:47; Start 09/23/17 at 21:00 Pneumococcal Polyvalent Vaccine (Pneumovax-23 Inj) 25 mcg ONCE ONCE IM ; Start 09/24/17 at 10:00; Stop 09/24/17 at 10:01 Influenza Virus Vaccine (Flu (Quadrivalent) Vaccine Inj) 0.5 ml ONCE ONCE IM ; Start 09/24/17 at 10:00; Stop 09/24/17 at 10:01 Potassium Bicarb/ Potassium Chloride (K-Lyte Cl Eff) 50 meq ONCE ONCE PO Last administered on 09/24/17 08:13; Start 09/24/17 at 08:00; Stop 09/24/17 at 08:03; Status DC A/P Problem List: (1) Hypokalemia ICD Code: E87.6 - Hypokalemia Status: Acute (2) HTN (hypertension) ICD Code: I10 - Essential (primary) hypertension Status: Chronic (3) Afib ICD Code: I48.91 - Unspecified atrial fibrillation Status: Chronic (4) UTI (urinary tract infection) ICD Code: N39.0 - Urinary tract infection, site not specified Status: Acute (5) Hyponatremia ICD Code: E87.1 - Hypo-osmolality and hyponatremia Status: Acute (6) Generalized weakness ICD Code: R53.1 - Weakness Status: Acute Assessment and Plan Patient is a 72-year-old female with primary medical history of atrial fibrillation on Xarelto, HTN, anxiety, cataracts, glaucoma, hypothyroidism who came into the hospital for evaluation of generalized weakness and overall not feeling well. Severe hypo-natremia, unclear duration Metabolic encephalopathy - Noted to be confused by sister. Confusion seemed to resolve. - Sodium 118 on admission. She was at [facility] a week and a half ago with sodium levels of 135. -Sodium now 123. continue to trend. - Continue with neurochecks. Hypokalemia - Replete as needed. Urinary tract infection, cystitis - UA positive - On Rocephin. Continue Rocephin pending urine cultures. Hypothyroidism - TSH 27.4, check T4 - Continue levothyroxine 150 g for now we will adjust based on results of T4. Atrial fibrillation, chronic, rate controlled HTN, chronic - Continue home medication - Monitor BP trend Anxiety, depression - Continue home medication Glaucoma, cataract - Continue home medication DVT prop SCDs, Jazminto Edith Nunez MD Sep 24, 2017 09:52
[2017-09-24] MEDS ORDERED: PNEUMOCOCCAL POLYVALENT INJ 25 MCG/0.5 ML SYR IM ONE (10:00)
[2017-09-24] MEDS ORDERED: INFLUENZA VIRUS VACCINE (QUADRIVALENT) 0.5 ML SYR IM ONE (10:00)
--- NOTE | 2017-09-24 14:30 | EKG ---
Date Performed: 09/23/2017 Time Performed: 13:52:52 PTAGE: 72 years EKG: ATRIAL FIBRILLATION WITH ABERRANT CONDUCTION OR VENTRICULAR PREMATURE COMPLEXES BORDERLINE LEFT AXIS DEVIATION INCOMPLETE RIGHT BUNDLE BRANCH BLOCK MODERATE T-WAVE ABNORMALITY, CONSIDER MAYRA LATERAL ISCHEMIA ABNORMAL ECG NO PREVIOUS TRACING DOCTOR: Dorinda Chicas Interpretating Date/Time 09/24/2017 14:25:37
[2017-09-24] MEDS: cefTRIAXone INJ 2,000 MG in SODIUM CHLORIDE 0.9% INJ 100 ML IV SCH (17:17)
[2017-09-24] MEDS: LATANOPROST 0.005% OPHT SOLN 2.5 ML BTL EACH EYE SCH (19:52)
[2017-09-24 23:34] LABS: BICARBONATE 23.5 MEQ/L (21.0-32.0); POTASSIUM 3.6 MEQ/L (3.5-5.1)
[2017-09-25] VITALS: BP 124/76; PULSE 63; RESP 20; TEMP 97.2; O2SAT 91
[2017-09-25] MEDS: SODIUM CHLOR 0.9% 1000 ML INJ 1,000 ML IV SCH ×2 (04:20→14:30)
[2017-09-25] MEDS: LEVOTHYROXINE SODIUM 150 MCG TAB PO SCH (05:36)
[2017-09-25 05:57] VITALS: BP 160/87; PULSE 83; RESP 20; TEMP 97; O2SAT 96
[2017-09-25 08:00] VITALS: BP 173/95; PULSE 87; RESP 18; TEMP 97.7; O2SAT 93
[2017-09-25] MEDS: amLODIPine BESYLATE 5 MG TAB PO SCH (08:44)
[2017-09-25] MEDS: RIVAROXABAN 20 MG TAB PO SCH (08:44)
[2017-09-25] MEDS: busPIRone HCL 5 MG TAB PO SCH ×2 (08:44→23:27)
[2017-09-25] MEDS: CITALOPRAM HYDROBROMIDE 40 MG TAB PO SCH (08:44)
[2017-09-25] MEDS: DOCUSATE SODIUM 50 MG/SENNA 8.6 MG TAB PO SCH ×2 (08:44→23:27)
[2017-09-25 08:58] LABS: HEMATOCRIT 35.5 % (35.0-46.0); MEAN CELL VOLUME 111.7 FL (80.0-100.0); MEAN CORPUSCULAR HEMOGLOBIN 40.3 PG (27.0-34.0); PLATELET COUNT 270 TH/MM3 (150-450); RED BLOOD COUNT 3.17 MIL/MM3 (4.00-5.30); RED CELL DISTRIBUTION WIDTH 13.4 % (11.6-17.2); WHITE BLOOD COUNT 7.6 TH/MM3 (4.0-11.0)
[2017-09-25 09:04] LABS: MEAN CORPUSCULAR HGB CONC 36.1 % (32.0-36.0); REVIEW FLAG FINAL
[2017-09-25 09:13] LABS: BICARBONATE 21.7 MEQ/L (21.0-32.0); POTASSIUM 3.3 MEQ/L (3.5-5.1)
[2017-09-25] MEDS ORDERED: POTASSIUM CHLORIDE 10 MEQ CONTROLLED RELEASE TAB PO ONE (09:45)
[2017-09-25 12:00] VITALS: BP 135/72; PULSE 92; RESP 19; TEMP 97.8; O2SAT 98
--- NOTE | 2017-09-25 12:45 | HHI.PR ---
Subjective Remarks Follow-up for hyponatremia Patient is no complaints. She is AAO 4. She stated that she walked down the hallway yesterday is doing well. No events. Objective Vitals Vital Signs Date Time Temp Pulse Resp B/P (MAP) Pulse Ox O2 Delivery O2 Flow Rate FiO2 09/25/17 12:00 97.8 92 19 135/72 (93) 98 09/25/17 08:00 97.7 87 18 173/95 (121) 93 09/25/17 05:57 97.0 83 20 160/87 (111) 96 09/25/17 00:00 97.2 63 20 124/76 (92) 91 09/24/17 23:55 63 09/24/17 20:00 98.0 66 20 146/73 (97) 98 09/24/17 19:52 77 09/24/17 16:00 98.8 67 17 136/79 (98) 99 I/O 09/24/17 09/24/17 09/24/17 09/25/17 09/25/17 09/25/17 06:59 14:59 22:59 06:59 14:59 22:59 Intake Total 340 ml 1350 ml 870 ml 700 ml Output Total 800 ml Balance 340 ml 1350 ml 870 ml -100 ml Intake Oral 240 ml 360 ml 320 ml IV Total 100 ml 990 ml 550 ml 700 ml Output Urine Total 800 ml # Voids 3 4 # Bowel Movements 0 1 0 Result Diagram: 09/25/17 0758 09/25/17 0758 Objective Remarks GENERAL: in NAD CARDIOVASCULAR: Regular rate and rhythm without murmurs, gallops, or rubs. RESPIRATORY: Breath sounds equal bilaterally. No accessory muscle use. GASTROINTESTINAL: Abdomen soft, non-tender, nondistended. MUSCULOSKELETAL: No cyanosis, or edema. BACK: Nontender without obvious deformity. No CVA tenderness. NEURO: AAO X 4. CN 2-12 intact. motor and sensation intact. Medications and IVs Current Medications Sodium Chloride (NS Flush) 2 ml UNSCH PRN IV FLUSH FLUSH AFTER USING IV ACCESS ; Start 09/23/17 at 15:00 Sodium Chloride 500 ml @ 500 mls/hr BOLUS ONCE IV Last administered on t 15:08; Start 09/23/17 at 15:00; Stop 09/23/17 at 15:59; Status DC Potassium Chloride (KCl) 40 meq ONCE ONCE PO Last administered on 09/23/17 16 :30; Start 09/23/17 at 16:15; Stop 09/23/17 at 16:16; Status DC Sodium Chloride 500 ml @ 500 mls/hr BOLUS ONCE IV Last administered on 16:31; Start 09/23/17 at 16:30; Stop 09/23/17 at 17:29; Status DC Sodium Chloride 1,000 ml @ 100 mls/hr Q10H IV Last administered on 09/25/17 04:20; Start 09/23/17 at 18:00; Stop 09/25/17 at 12:42; Status DC Acetaminophen (Tylenol) 650 mg Q4H PRN PO TEMP > 100.4 Last administered on 12:01; Start 09/23/17 at 17:45 Ondansetron HCl (Zofran Inj) 4 mg Q6H PRN IVP NAUSEA OR VOMITING; Start at 17:45 Naloxone HCl (Narcan Inj) 0.4 mg UNSCH PRN IV PUSH SEE LABEL COMMENTS; Start 09/23/17 at 17:45 Senna/Docusate Sodium (Bhavya-Colace) 1 tab BID PO Last administered on 08:44; Start 09/23/17 at 21:00 Magnesium Hydroxide (Milk Of Magnesia Liq) 30 ml Q12H PRN PO Mild constipation ; Start 09/23/17 at 17:45 Bisacodyl (Dulcolax Supp) 10 mg DAILY PRN RECTAL SEVERE CONSITIPATION; Start 09/23/17 at 17:45 Ceftriaxone Sodium 2000 mg/ Sodium Chloride 100 ml @ 200 mls/hr Q24H IV Last administered on 09/24/17 17:17; Start 09/23/17 at 18:00 Sodium Chloride 100 ml @ 50 mls/hr ONCE ONCE IV Last administered on 21:46; Start 09/23/17 at 18:15; Stop 09/23/17 at 20:14; Status DC Amlodipine Besylate (Norvasc) 5 mg DAILY PO Last administered on 09/25/17 08: 44; Start 09/24/17 at 09:00 Buspirone HCl (Buspar) 15 mg BID PO Last administered on 09/25/17 08:44; Start 09/23/17 at 21:00 Citalopram Hydrobromide (CeleXA) 40 mg DAILY PO Last administered on 09/25/17 08:44; Start 09/24/17 at 09:00 Dorzolamide/ Timolol (Cosopt 2-0.5% Opt Soln) 1 drop BID EACH EYE Last administered on 09/24/17 19:51; Start 09/23/17 at 21:00 Levothyroxine Sodium (Synthroid) 150 mcg DAILY@0600 PO Last administered on 05:36; Start 09/24/17 at 06:00 Rivaroxaban (Xarelto) 20 mg DAILY PO Last administered on 09/25/17 08:44; Start 09/24/17 at 09:00 Latanoprost (Xalatan 0.005% Opt Soln) 1 drop HS EACH EYE Last administered on 09/24/17 19:52; Start 09/23/17 at 21:00 Pneumococcal Polyvalent Vaccine (Pneumovax-23 Inj) 25 mcg ONCE ONCE IM Last administered on 09/24/17 10:34; Start 09/24/17 at 10:00; Stop 09/24/17 at 10:01 ; Status DC Influenza Virus Vaccine (Flu (Quadrivalent) Vaccine Inj) 0.5 ml ONCE ONCE IM Last administered on 09/24/17 10:32; Start 09/24/17 at 10:00; Stop 09/24/17 at 10:01; Status DC Potassium Bicarb/ Potassium Chloride (K-Lyte Cl Eff) 50 meq ONCE ONCE PO Last administered on 09/24/17 08:13; Start 09/24/17 at 08:00; Stop 09/24/17 at 08:03; Status DC Potassium Chloride (KCl) 30 meq ONCE ONCE PO Last administered on 09/25/17 10 :23; Start 09/25/17 at 09:45; Stop 09/25/17 at 09:46; Status DC A/P Problem List: (1) Hypokalemia ICD Code: E87.6 - Hypokalemia Status: Acute (2) HTN (hypertension) ICD Code: I10 - Essential (primary) hypertension Status: Chronic (3) Afib ICD Code: I48.91 - Unspecified atrial fibrillation Status: Chronic (4) UTI (urinary tract infection) ICD Code: N39.0 - Urinary tract infection, site not specified Status: Acute (5) Hyponatremia ICD Code: E87.1 - Hypo-osmolality and hyponatremia Status: Acute (6) Generalized weakness ICD Code: R53.1 - Weakness Status: Acute Assessment and Plan Patient is a 72-year-old female with primary medical history of atrial fibrillation on Xarelto, HTN, anxiety, cataracts, glaucoma, hypothyroidism who came into the hospital for evaluation of generalized weakness and overall not feeling well. Severe hypo-natremia, unclear duration Metabolic encephalopathy - Noted to be confused by sister. Confusion seemed to resolve. -Per patient's sister she was tracking too much water about 4 L. - Sodium 118 on admission. She was at a hospital a week and a half ago with sodium levels of 135. -Sodium now 127. Will DC IV fluids and start fluid restriction. Give a sodium tablet. - Continue with neurochecks. Hypokalemia - Replete as needed. Urinary tract infection, cystitis - UA positive - On Rocephin and sensitivity is back so will switch to Cipro. Hypothyroidism - TSH 27.4, check T4 - Continue levothyroxine 150 g for now we will adjust based on results of T4. Atrial fibrillation, chronic, rate controlled HTN, chronic - Continue home medication - Monitor BP trend Anxiety, depression - Continue home medication Glaucoma, cataract - Continue home medication DVT prop SCDs, Xarelto Discharge Planning Possible discharge home tomorrow if sodium continues to improve. Edith Nunez MD Sep 25, 2017 12:45
[2017-09-25] MEDS ORDERED: SODIUM CHLORIDE 1 GRAM TAB PO ONE (14:00)
[2017-09-25 16:00] VITALS: BP 130/72; PULSE 69; RESP 19; TEMP 96.3; O2SAT 100
[2017-09-25 21:50] VITALS: BP 124/68; PULSE 66; RESP 16; TEMP 98.3; O2SAT 98
[2017-09-25] MEDS: CIPROFLOXACIN 500 MG TAB PO SCH (23:27)
[2017-09-25] MEDS: LATANOPROST 0.005% OPHT SOLN 2.5 ML BTL EACH EYE SCH (23:52)
[2017-09-25] MEDS: DORZOLAMIDE/TIMOLOL OPTH SOLN 10 ML BTL EACH EYE SCH (23:52)
[2017-09-26] VITALS: BP 136/80; PULSE 91; RESP 20; TEMP 97.5; O2SAT 97
[2017-09-26] MEDS ORDERED: Vancomycin Consult Pharmacy 1 EA OTHER SCH (01:30)
[2017-09-26] MEDS ORDERED: VANCOMYCIN INJ 1,900 MG in SODIUM CHLORID 0.9% 500 ML INJ 500 ML IV SCH (03:00)
[2017-09-26 04:00] VITALS: BP 146/86; PULSE 66; RESP 20; TEMP 97.8; O2SAT 98
[2017-09-26] MEDS: LEVOTHYROXINE SODIUM 150 MCG TAB PO SCH (07:03)
[2017-09-26 08:00] VITALS: BP 157/94; PULSE 71; RESP 18; TEMP 98.6; O2SAT 100
[2017-09-26] MEDS: busPIRone HCL 5 MG TAB PO SCH (08:48)
[2017-09-26] MEDS: DOCUSATE SODIUM 50 MG/SENNA 8.6 MG TAB PO SCH (08:48)
[2017-09-26] MEDS: amLODIPine BESYLATE 5 MG TAB PO SCH (08:48)
[2017-09-26] MEDS: CITALOPRAM HYDROBROMIDE 40 MG TAB PO SCH (08:48)
[2017-09-26] MEDS: CIPROFLOXACIN 500 MG TAB PO SCH (08:49)
[2017-09-26] MEDS: RIVAROXABAN 20 MG TAB PO SCH (08:49)
[2017-09-26] MEDS: DORZOLAMIDE/TIMOLOL OPTH SOLN 10 ML BTL EACH EYE SCH (08:53)
[2017-09-26 10:15] LABS: POTASSIUM 3.4 MEQ/L (3.5-5.1)
[2017-09-26] MEDS ORDERED: CIPR-9 PO (10:30)
--- NOTE | 2017-09-26 10:32 | HHI.DCPOC ---
Discharge Care Plan Diagnosis: (1) UTI (urinary tract infection) (2) Hypokalemia (3) Hyponatremia Goals to Promote Your Health * To prevent worsening of your condition and complications * To maintain your health at the optimal level Directions to Meet Your Goals Take your medications as prescribed Follow your dietary instruction Follow activity as directed Keep your appointments as scheduled Take your immunizations and boosters as scheduled If your symptoms worsen call your PCP, if no PCP go to Urgent Care Center or Emergency Room Smoking is Dangerous to Your Health. Avoid second hand smoke Call the 24-hour hour crisis hotline for domestic abuse at Edith Nunez MD Sep 26, 2017 10:32
--- NOTE | 2017-09-26 10:34 | HHI.DS ---
Discharge Summary Admission Date Sep 23, 2017 at 16:35 Discharge Date: Sep 26, 2017 Admitting Diagnosis hyponatremia, generalized weakness (1) Metabolic encephalopathy ICD Code: G93.41 - Metabolic encephalopathy Diagnosis: Principal (2) Generalized weakness ICD Code: R53.1 - Weakness Diagnosis: Principal Status: Acute (3) Hyponatremia ICD Code: E87.1 - Hypo-osmolality and hyponatremia Diagnosis: Principal Status: Acute (4) Hypokalemia ICD Code: E87.6 - Hypokalemia Diagnosis: Principal Status: Acute (5) HTN (hypertension) ICD Code: I10 - Essential (primary) hypertension Diagnosis: Secondary Status: Chronic (6) Afib ICD Code: I48.91 - Unspecified atrial fibrillation Diagnosis: Secondary Status: Chronic (7) UTI (urinary tract infection) ICD Code: N39.0 - Urinary tract infection, site not specified Diagnosis: Principal Status: Acute Procedures See hospital course Brief History - From Admission Patient is a 72-year-old female with primary medical history of atrial fibrillation on Xarelto, HTN, anxiety, cataracts, glaucoma, hypothyroidism who came into the hospital for evaluation of generalized weakness and overall not feeling well. Patient states that for the past a week and a half she has not been feeling really well that she went to [facility] in [place] to be evaluated where and he did multiple labs on her, and have some anemia with hemoglobin 10.9. Patient states that she feels the same way from last week and that she has increasing neck pain. Patient also complaints of headache states tension related and palpitation and anxiety related. States headache comes from the back of her head going to the front but she attributes it that she is feeling hungry right now. Denies any numbness or tingling sensation. Denies unilateral weakness, denies change in vision. Denies any chest pain, palpitations, dizziness. Denies any abdominal pain, cramping, nausea, vomiting , diarrhea. Denies any fevers or chills. Denies falls, trauma. Sister at the bedside. Noted that patient is more confused in the past 2 days. She also has been noted to be drinking a lot of water possibly more than 2 L a day that is not her usual. CBC/BMP: 09/25/17 0758 09/26/17 0878 Significant Findings Laboratory Tests Test 09/23/17 14:14 09/23/17 14:56 09/23/17 16:17 09/23/17 22:50 Red Blood Count 3.33 MIL/MM3 (4.00-5.30) Mean Corpuscular Volume 108.2 FL (80.0-100.0) Mean Corpuscular Hemoglobin 39.3 PG (27.0-34.0) Mean Corpuscular Hemoglobin Concent 36.4 % (32.0-36.0) Neutrophils (%) (Auto) 73.5 % (16.0-70.0) Monocytes (%) (Auto) 9.1 % (0.0-8.0) Sodium Level 118 MEQ/L (136-145) 124 MEQ/L (136-145) Potassium Level 3.1 MEQ/L (3.5-5.1) 3.2 MEQ/L (3.5-5.1) Chloride Level 85 MEQ/L (98-107) 89 MEQ/L (98-107) Estimat Glomerular Filtration Rate 70 ML/MIN (>89) Creatine Kinase MB 3.7 NG/ML (0.5-3.6) Troponin I LESS THAN 0.02 NG/ML Thyroid Stimulating Hormone 3rd Gen 27.400 uIU/ML (0.358-3.740) Urine Turbidity HAZY (CLEAR) Urine Ketones TRACE mg/dL (NEG) Urine Nitrite POS (NEG) Urine Leukocyte Esterase MOD (NEG) Urine Bacteria MANY /hpf (NONE) Urine Mucus FEW /lpf (OCC) Calcium Level 8.0 MG/DL (8.5-10.1) Test 09/24/17 05:45 09/24/17 23:08 09/25/17 07:58 09/26/17 08:25 Red Blood Count 3.25 MIL/MM3 (4.00-5.30) 3.17 MIL/MM3 (4.00-5.30) Mean Corpuscular Volume 110.0 FL (80.0-100.0) 111.7 FL (80.0-100.0) Mean Corpuscular Hemoglobin 38.8 PG (27.0-34.0) 40.3 PG (27.0-34.0) Neutrophils (%) (Auto) 77.6 % (16.0-70.0) Monocytes (%) (Auto) 9.4 % (0.0-8.0) Lymphocytes # (Auto) 0.8 TH/MM3 (1.0-4.8) Calcium Level 8.2 MG/DL (8.5-10.1) 7.5 MG/DL (8.5-10.1) 8.1 MG/DL (8.5-10.1) 8.3 MG/DL (8.5-10.1) Total Bilirubin 1.1 MG/DL (0.2-1.0) Sodium Level 123 MEQ/L (136-145) 126 MEQ/L (136-145) 127 MEQ/L (136-145) 129 MEQ/L (136-145) Potassium Level 3.1 MEQ/L (3.5-5.1) 3.3 MEQ/L (3.5-5.1) 3.4 MEQ/L (3.5-5.1) Chloride Level 90 MEQ/L (98-107) 95 MEQ/L (98-107) 96 MEQ/L (98-107) Blood Urea Nitrogen 6 MG/DL (7-18) 6 MG/DL (7-18) 4 MG/DL (7-18) Random Glucose 153 MG/DL (74-106) Estimat Glomerular Filtration Rate 79 ML/MIN (>89) 88 ML/MIN (>89) Mean Corpuscular Hemoglobin Concent 36.1 % (32.0-36.0) Imaging Last Impressions Head CT 09/23/17 1449 Signed Impressions: Service Date/Time: Saturday, September 23, 2017 15:15 - CONCLUSION: 1. No acute intracranial abnormality is identified. 2. Chronic changes include moderate generalized atrophy and moderate to severe periventricular white matter low attenuation characteristic of chronic microvascular ischemia. Jose L Gillespie MD Chest X-Ray 09/23/17 1344 Signed Impressions: Service Date/Time: Saturday, September 23, 2017 14:10 - CONCLUSION: 1. No acute cardiopulmonary disease. 2. Mild wedge-shaped deformity of likely T11 vertebral body of unknown chronicity given lack of prior exams. MRI examination may be performed to evaluate for bone marrow edema if patient has symptoms corresponding to this level. Calvin Lynch MD PE at Discharge GENERAL: in NAD CARDIOVASCULAR: Regular rate and rhythm without murmurs, gallops, or rubs. RESPIRATORY: Breath sounds equal bilaterally. No accessory muscle use. GASTROINTESTINAL: Abdomen soft, non-tender, nondistended. MUSCULOSKELETAL: No cyanosis, or edema. BACK: Nontender without obvious deformity. No CVA tenderness. NEURO: AAO X 4. CN 2-12 intact. motor and sensation intact. Pt update on day of discharge Follow-up for hyponatremia Patient seen walking in her bedroom with a walker with no difficulty. She states she is very anxious to go home today. Patient is AAO 4. She has no complaints. No issues overnight. Hospital Course Patient is a 72-year-old female with primary medical history of atrial fibrillation on Xarelto, HTN, anxiety, cataracts, glaucoma, hypothyroidism who came into the hospital for evaluation of generalized weakness, confusion and overall not feeling well. Severe hypo-natremia, unclear duration Metabolic encephalopathy - Noted to be confused by sister resolved quickly after mild correction her sodium initially with 3% saline in situ over to normal saline. -Most likely cause is drinking too much fluid as noted by her sister who stated she was treated about 4 L water day. Baseline at the hospital week and a half ago was a sodium level 135. -Sodium now 127. Will DC IV fluids and start fluid restriction. Give a sodium tablet. -Patient sodium level slowly improved in the hospital course in which initially she was on normal saline and that was discontinued. Patient would then put on a fluid restriction less than 2 L in which her sodium continued to improve. - Extensive education was given to patient in regards to diagnosis, treatment , and management. -Patient told to follow with a provider in one week and have her sodium rechecked in 1 week. Patient stated that she understood. Hypokalemia - Replete as needed. -At home she does take potassium chloride 10 mEq daily. Urinary tract infection, cystitis - UA positive - Initially on On Rocephin in which urine culture grew kluyera Ascorbata which was sensitive to Cipro. Patient was later switched to Cipro 500 mg by mouth twice a day for treatment of a total 7 days. Hypothyroidism - TSH 27.4, check T4 - Continue levothyroxine 150 g for now we will adjust based on results of T4. Atrial fibrillation, chronic, rate controlled HTN, chronic - Continue home medication - Monitor BP trend Anxiety, depression - Continue home medication Glaucoma, cataract - Continue home medication Pt Condition on Discharge: Good Discharge Disposition: Discharge Home Discharge Time: <= 30 minutes Discharge Instructions DIET: Follow Instructions for: Heart Healthy Diet Fluid Restrictions: 2 L Activities you can perform: Regular-No Restrictions Follow up Referrals: PCP Follow-up - 1 Week PCP Follow-up - 1 Week @ [facility] with [facility] GANT FOLLOW UP APPOINTMENT WITH DR. GANT ON Saturday10/02/17 AT 1:30PM AT [address] [facility] New Medications: Ciprofloxacin (Cipro) 500 Mg Tab 500 MG PO Q12HR for UTI, #10 TAB 0 Refills Continued Medications: Acetaminophen ER 8 HR (Arthritis Pain Reliever ER 8 HR) 650 Mg Tab 650 MG PO Q8HR PRN for PAIN, TAB 0 Refills Amlodipine (Norvasc) 5 Mg Tab 5 MG PO DAILY for Blood Pressure Management, #30 TAB 0 Refills Bimatoprost Opth Drops (Lumigan Opth Drops) 0.01% Soln 1 DROP EACH EYE HS for Intraocular Pressure, #1 BOTTLE 0 Refills Buspirone (Buspirone) 15 Mg Tab 15 MG PO BID for Anxiety, TAB 0 Refills Cimetidine (Heartburn Relief) 200 Mg Tab 1 TAB PO BID PRN for HEARTBURN, TAB 0 Refills Citalopram (Celexa) 40 Mg Tab 40 MG PO DAILY for Control Depression, #30 TAB [address] (Diclofenac Sodium DR) 75 Mg Tabdr 75 MG PO BID, #60 TAB 0 Refills Dorzolamide-Timolol Opth Drops (Cosopt Opth Drops) 22.3-6.8 Mg/Ml Soln 1 DROP EACH EYE BID for Glaucoma, #1 BOTTLE 0 Refills Levothyroxine (Synthroid) 150 Mcg Tab 150 MCG PO DAILY for Thyroid, #30 TAB 0 Refills Losartan-Hydrochlorothiazide (Losartan-Hydrochlorothiazide) 100-25 Mg Tab 1 TAB PO DAILY for Blood Pressure Management, #30 TAB 0 Refills Melatonin (Melatonin) 10 Mg Tablet 10 MG PO HS for SLEEP Potassium Chloride ER (Klor-Con 10) 10 Meq Tab 10 MEQ PO DAILY for Electrolyte Replacement, #30 TAB 0 Refills Rivaroxaban (Xarelto) 20 Mg Tab 20 MG PO DAILY for Blood Clot Prevention, TAB 0 Refills [Focus Factor] () 1 TAB PO DAILY Edith Nunez MD Sep 26, 2017 10:34
[2017-09-26 12:00] VITALS: BP 147/83; PULSE 69; RESP 18; TEMP 97.1; O2SAT 98
[2017-09-26 12:05] VITALS: PULSE 69
== END 2017-09-26 14:16 | disposition home or self-care (01) | DRG 640 ==
LOC: NEPC 13:40 → NEDA 16:35 → N06B 17:43
PROVIDERS: ADMIT Family Medicine; ATTEND Family Medicine
DX: E87.1 Hypo-osmolality and hyponatremia (principal); G93.41 Metabolic encephalopathy; I48.2 Chronic atrial fibrillation; N39.0 Urinary tract infection, site not specified; E87.6 Hypokalemia; I10 Essential (primary) hypertension; E03.9 Hypothyroidism, unspecified; G47.00 Insomnia, unspecified; H40.9 Unspecified glaucoma; F32.9 Major depressive disorder, single episode, unspecified; F41.9 Anxiety disorder, unspecified; Z23 Encounter for immunization; Z79.01 Long term (current) use of anticoagulants; Z96.653 Presence of artificial knee joint, bilateral
CPT/HCPCS: 70450; 71020; 80048; 80053; 81001; 82140; 82550; 82552; 82948; 83735; 84436; 84443; 84484; 85025; 85027; 85610; 85730; 87077; 87086; 87186; 90686; 90732; 93005; J0696; J3370; J7030; J7040; Q2038

== ENCOUNTER 2017-11-28 20:32 | Emergency (ER) | payer MEDICARE, OTHER ==
[~2017-11-28] VITALS: Ht 165.1 cm; Wt 92.0 kg
[~2017-11-28 20:32] MED LIST: AMLO5 PO; ARTH650T6 PO; BUSP15TA PO; CELE40TA PO; CIPR-9 PO; DICL75TA PO; DORZ2SOL7 EACH EYE; FOCUS FACTOR PO; HEARTAB PO; KLOR10TA PO; LEVO.15 PO; LOSA100T2 PO; LUMI0.01 EACH EYE; MELA10TA4 PO; XARE20TA PO
[2017-11-28 20:35] VITALS: BP 156/92; PULSE 64; RESP 16; TEMP 98.4; O2SAT 98
[2017-11-28 23:25] LABS: AUTOMATED NEUTROPHIL # 5.2 TH/MM3 (1.8-7.7); BASOPHIL % 0.4 % (0.0-2.0); EOSINOPHIL # 0.2 TH/MM3 (0-0.4); EOSINOPHIL % 2.5 % (0.0-4.0); HEMATOCRIT 31.5 % (35.0-46.0); HEMOGLOBIN 11.3 GM/DL (11.6-15.3); LYMPH % 15.4 % (9.0-44.0); LYMPHOCYTE # 1.1 TH/MM3 (1.0-4.8); MEAN CELL VOLUME 106.6 FL (80.0-100.0); MEAN CORPUSCULAR HEMOGLOBIN 38.2 PG (27.0-34.0); MEAN CORPUSCULAR HGB CONC 35.8 % (32.0-36.0); MEAN PLATELET VOLUME 7.7 FL (7.0-11.0); MONO % 8.7 % (0.0-8.0); MONOCYTE # 0.6 TH/MM3 (0-0.9); PLATELET COUNT 296 TH/MM3 (150-450); RED BLOOD COUNT 2.96 MIL/MM3 (4.00-5.30); RED CELL DISTRIBUTION WIDTH 13.2 % (11.6-17.2); WHITE BLOOD COUNT 7.1 TH/MM3 (4.0-11.0)
[2017-11-28 23:49] LABS: ALT (GPT) 24 U/L (10-53)
[2017-11-28 23:52] LABS: ALKALINE PHOSPHATASE 77 U/L (45-117); TOTAL BILIRUBIN ADULT 0.8 MG/DL (0.2-1.0); TOTAL PROTEIN 7.1 GM/DL (6.4-8.2)
--- NOTE | 2017-11-28 23:59 | RADRPT ---
EXAM DATE/TIME: 11/28/2017 23:29 [place] COMPARISON: No previous studies available for comparison. INDICATIONS : Right leg swelling. MEDICAL HISTORY : Hypertension. Glasses. C1 fracture. Atrial fibrillation. Anticoagulant therapy, xarelto. Anxiety . SURGICAL HISTORY : Tonsillectomy. Bilateral knee replacement. ENCOUNTER: Initial ACUITY: 4 - 6 days PAIN SCORE: 4/10 LOCATION: Right leg. TECHNIQUE: Venous ultrasound of the leg was performed from the inguinal ligament to the proximal calf. Real-andrew e, color Doppler and spectral tracing, compression and augmentation techniques were used. FINDINGS: There is normal compressibility of the deep venous system from the inguinal region to the proximal ca lf. No echogenic clot is seen in the lumen of the common femoral, femoral, popliteal, and posterior tibial veins. There is a normal response of the venous system to proximal and distal augmentation an d respiration. CONCLUSION: Normal examination. Christiano Harley MD on November 28, 2017 at 23:57 Board Certified Radiologist. This report was verified electronically.
[2017-11-29 00:10] LABS: ALBUMIN 3.9 GM/DL (3.4-5.0); AST (GOT) 42 U/L (15-37); BICARBONATE 29.4 MEQ/L (21.0-32.0); BLOOD UREA NITROGEN 16 MG/DL (7-18); CALCIUM 9.3 MG/DL (8.5-10.1); CHLORIDE 99 MEQ/L (98-107); CREATININE 0.85 MG/DL (0.50-1.00); GLOMERULAR FILTRATION RATE 66 ML/MIN (>89); GLUCOSE,RANDOM 97 MG/DL (74-106); SODIUM (NA) 133 MEQ/L (136-145)
[2017-11-29] MEDS ORDERED: CEPHALEXIN MONOHYDRATE 500 MG CAP PO ONE (00:30)
--- NOTE | 2017-11-29 01:27 | PD ---
HPI Chief Complaint: Edema Time Seen by Provider: 22:03 Travel History International Travel<30 days: No Contact w/Intl Traveler<30days: No Traveled to known affect area: No History of Present Illness HPI Patient is a 72-year-old female with a history of A. fib and hypertension as well as peripheral edema she is on losartan plus [place] chlorothiazide. She reports that her right leg is edematous for the last week and she denies any change in medication she denies increased salt intake or fluid overload denies chest pain denies any peripheral reason or cardiac reason for this overload and she has no history of renal issues. Main complaint is right lower leg edema noted is a scab on her knee but her daughter says she always has scabs on her knees. Patient is nontoxic awake alert foot is obviously pitting edema 2+ the left leg is normal PFSH Past Medical History Hx Anticoagulant Therapy: Yes (Xarelto) Atrial Fibrillation: Yes Anxiety: Yes Cardiovascular Problems: Yes (A-fib, HTN) Hypertension: Yes Insomnia: Yes Neurologic: Yes (C1 fracture 2 weeks ago) Tetanus Vaccination: < 5 Years Influenza Vaccination: Yes Menopausal: Yes Past Surgical History Tonsillectomy: Yes Social History Alcohol Use: Yes (on occasion) Tobacco Use: No Substance Use: No Allergies-Medications (Allergen,Severity, Reaction): Coded Allergies: No Known Allergies (Unverified , 09/23/17) Reported Meds & Prescriptions Reported Meds & Active Scripts Active Keflex (Cephalexin) 500 Mg Cap 500 Mg PO Q8H Cipro (Ciprofloxacin HCl) 500 Mg Tab 500 Mg PO Q12HR Reported Buspirone (Buspirone HCl) 15 Mg Tab 15 Mg PO BID Klor-Con 10 (Potassium Chloride) 10 Meq Tab 10 Meq PO DAILY Xarelto (Rivaroxaban) 20 Mg Tab 20 Mg PO DAILY [Focus Factor] 1 Tab PO DAILY Melatonin 10 Mg Tablet 10 Mg PO HS Synthroid (Levothyroxine Sodium) 150 Mcg Tab 150 Mcg PO DAILY Heartburn Relief (Cimetidine) 200 Mg Tab 1 Tab PO BID PRN Arthritis Pain Reliever ER 8 HR (Acetaminophen) 650 Mg Tab 650 Mg PO Q8HR PRN Norvasc (Amlodipine Besylate) 5 Mg Tab 5 Mg PO DAILY Celexa (Citalopram Hydrobromide) 40 Mg Tab 40 Mg PO DAILY Diclofenac Sodium DR (Diclofenac Sodium) 75 Mg Tabdr 75 Mg PO BID Losartan-Hydrochlorothiazide 100-25 Mg Tab 1 Tab PO DAILY Cosopt Opth Drops (Dorzolamide-Timolol Opth Drops) 22.3-6.8 Mg/Ml Soln 1 Drop EACH EYE BID Lumigan Opth Drops (Bimatoprost) 0.01% Soln 1 Drop EACH EYE HS Review of Systems Except as stated in HPI: all other systems reviewed are Neg Cardiovascular: Positive: Edema (LL extremity) Physical Exam Narrative GENERAL: Awake alert nontoxic SKIN: Warm and dry. HEAD: Atraumatic. Normocephalic. EYES: Pupils equal and round. No scleral icterus. No injection or drainage. ENT: No nasal bleeding or discharge. Mucous membranes pink and moist. NECK: Trachea midline. No JVD. CARDIOVASCULAR: Regular rate and rhythm. RESPIRATORY: No accessory muscle use. Clear to auscultation. Breath sounds equal bilaterally. GASTROINTESTINAL: Abdomen soft, non-tender, nondistended. Hepatic and splenic margins not palpable. MUSCULOSKELETAL: Extremities right lower leg has edema 2+ pitting with a 27 around eschar on her knee right-sided as well. 2+ pedal pulses palpated NEUROLOGICAL: Awake and alert. No obvious cranial nerve deficits. Motor grossly within normal limits. Five out of 5 muscle strength in the arms and legs. Normal speech. PSYCHIATRIC: Appropriate mood and affect; insight and judgment normal. Data Data Last Documented VS Orders Orders Us Leg Venous Doppler (11/28/17 ) Complete Blood Count With Diff (11/28/17 22:47) Comprehensive Metabolic Panel (11/28/17 22:47) Electrocardiogram (11/29/17 00:15) Cephalexin (Keflex) (11/29/17 00:30) Troponin I (11/29/17 00:27) Ed Discharge Order (11/29/17 01:36) Labs Laboratory Tests Test 11/28/17 23:15 White Blood Count 7.1 TH/MM3 Red Blood Count 2.96 MIL/MM3 Hemoglobin 11.3 GM/DL Hematocrit 31.5 % Mean Corpuscular Volume 106.6 FL Mean Corpuscular Hemoglobin 38.2 PG Mean Corpuscular Hemoglobin Concent 35.8 % Red Cell Distribution Width 13.2 % Platelet Count 296 TH/MM3 Mean Platelet Volume 7.7 FL Neutrophils (%) (Auto) 73.0 % Lymphocytes (%) (Auto) 15.4 % Monocytes (%) (Auto) 8.7 % Eosinophils (%) (Auto) 2.5 % Basophils (%) (Auto) 0.4 % Neutrophils # (Auto) 5.2 TH/MM3 Lymphocytes # (Auto) 1.1 TH/MM3 Monocytes # (Auto) 0.6 TH/MM3 Eosinophils # (Auto) 0.2 TH/MM3 Basophils # (Auto) 0.0 TH/MM3 CBC Comment DIFF FINAL Differential Comment Blood Urea Nitrogen 16 MG/DL Creatinine 0.85 MG/DL Random Glucose 97 MG/DL Total Protein 7.1 GM/DL Albumin 3.9 GM/DL Calcium Level 9.3 MG/DL Alkaline Phosphatase 77 U/L Aspartate Amino Transf (AST/SGOT) 42 U/L Alanine Aminotransferase (ALT/SGPT) 24 U/L Total Bilirubin 0.8 MG/DL Sodium Level 133 MEQ/L Potassium Level 4.0 MEQ/L Chloride Level 99 MEQ/L Carbon Dioxide Level 29.4 MEQ/L Anion Gap 5 MEQ/L Estimat Glomerular Filtration Rate 66 ML/MIN Troponin I LESS THAN 0.02 NG/ML [facility] Medical Decision Making Medical Screen Exam Complete: Yes Emergency Medical Condition: Yes Differential Diagnosis DVT vs edema of circulation , PVD Renal failure CHF other Narrative Course DVT ruled out with US and labs do not show any renal or cardiac cause , safe for discharge follow up as out pt Diagnosis Primary Impression: Afib Qualified Codes: I48.2 - Chronic atrial fibrillation Additional Impression: Edema of right foot Scripts Cephalexin (Keflex) 500 Mg Cap 500 MG PO Q8H for Infection, #30 CAP 0 Refills Prov: Andrea Nava MD 11/29/17 Disposition: 01 DISCHARGE HOME Condition: Good Andrea Nava MD Nov 29, 2017 01:27
[2017-11-29] MEDS ORDERED: CEPH-460 PO (01:35)
--- NOTE | 2017-11-29 15:00 | EKG ---
Date Performed: 11/29/2017 Time Performed: 00:25:28 PTAGE: 72 years EKG: ATRIAL FIBRILLATION WITH ABERRANT CONDUCTION OR VENTRICULAR PREMATURE COMPLEXES BORDERLINE LEFT AXIS DEVIATION NONSPECIFIC T-WAVE ABNORMALITY Since previous tracing, no significant change note d ABNORMAL RHYTHM ECG PREVIOUS TRACING : 09/23/2017 13.52 DOCTOR: Dorinda Chicas Interpretating Date/Time 11/29/2017 14:57:20
== END 2017-11-29 01:48 | disposition home or self-care (01) ==
LOC: NEPC 20:32
DX: I48.2 Chronic atrial fibrillation (principal); R60.0 Localized edema; I10 Essential (primary) hypertension; Z79.01 Long term (current) use of anticoagulants
CPT/HCPCS: 80053; 84484; 85025; 93005; 93971; 99285

== ENCOUNTER 2018-07-12 08:41 | Inpatient (IN) ==
[2018-07-12 09:58] LABS: Baso # (Auto) 0.1 th/mm3 (0.0-0.2); Baso % (Auto) 1.6 % (0.0-2.0); Eos # (Auto) 0.1 th/mm3 (0.0-0.4); Eos % (Auto) 1.2 % (0.0-4.0); Hematocrit 35.8 % (35.0-46.0); Hemoglobin 11.8 gm/dL (11.6-15.3); Lymph # (Auto) 0.8 th/mm3 (1.0-4.8); Lymph % (Auto) 11.2 % (9.0-44.0); Mean Corpuscular HGB Conc 32.9 % (32.0-36.0); Mean Corpuscular Hemoglobin 34.8 pg (27.0-34.0); Mean Corpuscular Volume 105.8 fL (80.0-100.0); Mono # (Auto) 0.4 th/mm3 (0.0-0.9); Mono % (Auto) 5.1 % (0.0-8.0); Neut # (Auto) 5.8 th/mm3 (1.8-7.7); Neut % (Auto) 80.9 % (16.0-70.0); Platelet Count 190 th/mm3 (150-450); Red Blood Count 3.38 mil/mm3 (4.00-5.30); Red Cell Distribution Width 16.3 % (11.6-17.2); White Blood Count 7.2 th/mm3 (4.0-11.0)
--- NOTE | 2018-07-12 10:10 | ED ---
HPI General Chief complaint: Altered Mental Status Stated complaint: Confusion/blurry vision Time Seen by Provider: 07/12/18 09:11 History of Present Illness HPI narrative: 73-year-old female presents emergency department with her sister for evaluation of confusion, left-sided visual weakness since this morning. Patient recently started living with her sister, she had an episode where she started wandering early this morning. She was last seen normal about 2300 last night. Patient complaining of some visual difficulty and difficulty focusing on objects. Daughter states that she noticed that her eyes were not lining up properly either. No focalized weakness reported no headaches, patient does have a history of atrial fibrillation but is not on any blood thinners. Symptoms moderate, duration unknown, associated signs symptoms in context as above Related Data Home Medications Medication Instructions Recorded Confirmed ferrous sulfate 325 mg PO DAILY 07/12/18 07/12/18 furosemide [Lasix] 20 mg PO DAILY 07/12/18 07/12/18 gabapentin 100 mg PO BID 07/12/18 07/12/18 levothyroxine [Synthroid] 200 mcg PO DAILY 07/12/18 07/12/18 metoprolol tartrate 12.5 mg PO DAILY 07/12/18 07/12/18 pantoprazole [Protonix] 40 mg PO DAILY 07/12/18 07/12/18 potassium chloride 4 meq PO DAILY 07/12/18 07/12/18 Allergies Allergy/AdvReac Type Severity Reaction Status Date / Time No Known Allergies Allergy Verified 07/12/18 09:10 Review of Systems ROS: all other systems reviewed are negative PMFSH Surgical History Surgical History Hx of abdominal surgery (Acute) Hx of knee surgery (Acute) Hx of tonsillectomy (Acute) Social History Social History Substance History: No History of Abuse Second Hand Smoke Exposure: No Smoking Status: Never smoker How Often Do You Have a Drink Containing Alcohol: 4 or more times a week Recent Travel in [facility] within the Last 8 Weeks: No Recent Out of Country Travel within the Last 8 Weeks: No Immunization History Tetanus Immunization: >5 Years Hx Influenza Vaccine This Season: No Exam Narrative Exam Narrative: GENERAL: Well-developed well-nourished no obvious distress SKIN: Focused skin assessment warm/dry. HEAD: Atraumatic. Normocephalic. EYES: Pupils equal and round and reactive to light. No scleral icterus. No injection or drainage. Extract movements do appear intact of the patient has some difficulty following to extreme left gaze. Visual morillo the patient does have limitations in the inferior left visual field bilaterally. This was done by confrontation as well as by forced light identification. ENT: No nasal bleeding or discharge. Mucous membranes pink and moist. NECK: Trachea midline. No JVD. CARDIOVASCULAR: Regular rate and rhythm. No murmur appreciated. RESPIRATORY: No accessory muscle use. Clear to auscultation. Breath sounds equal bilaterally. GASTROINTESTINAL: Abdomen soft, non-tender, nondistended. Hepatic and splenic margins not palpable. MUSCULOSKELETAL: No obvious deformities. No clubbing. No cyanosis. No edema. NEUROLOGICAL: Awake and alert and oriented, cranial nerves III through XII grossly intact and nonfocal, cranial nerve II deficit as outlined above under I section. 5 out of 5 strength in all 4 extremities. PSYCHIATRIC: Appropriate mood and affect; insight and judgment normal. Course Initial Documented Vital Signs Pulse Rate 83 07/12/18 08:53 Respiratory Rate 18 07/12/18 08:53 Blood Pressure 156/98 H 07/12/18 08:53 Pulse Oximetry 95 07/12/18 08:53 Last Documented Vital Signs Temperature 97.7 F 07/12/18 10:47 Pulse Rate 83 07/12/18 10:47 Respiratory Rate 18 07/12/18 10:47 Blood Pressure 173/96 H 07/12/18 10:47 Pulse Oximetry 97 07/12/18 10:47 Medical Decision Making [facility] Narrative Medical decision making narrative: Patient room to the emergency department, most concerning is her ocular symptoms including loss of visual field on left side. Patient CT scan does show some abnormality in the occipital region, the patient was discussed directly with Dr. Carl Broderick who states the patient's CT is limited by atrophy but certainly this could represent a subacute stroke. No mass-effect present. Patient was given 325 mg of aspirin, admitted to the hospital, orders for MRI of the brain. Certainly this appears to be a subacute stroke Findings were conveyed to the patient and her sister and they are agreeable for admission. Further history the patient had been on Xarelto in the past for atrial fibrillation and is not on currently as it was discontinued by a physician for unknown reason. No history of GI bleeding according to the patient.. Her monitoring and EKG does show atrial fibrillation today. Patient with no clear timeline of onset of symptoms did not meet stroke alert criteria and therefore no indication for systemic TPA. Discussed with Dr. Broderick , he estimates that the stroke is been present for at least a few days however MRI needed for further clarification. Medical Screen Exam Complete: Yes Emergency Medical Condition: Yes Differential Diagnosis Differential Diagnosis: Delirium, TIA, stroke, ocular stroke peer Lab Data Result diagrams: 07/12/18 09:30 07/12/18 09:30 Lab Results 07/12/18 07/12/18 07/12/18 Range/Units 09:30 09:30 09:31 WBC 7.2 (4.0-11.0) th/mm3 RBC 3.38 L (4.00-5.30) mil/mm3 Hgb 11.8 (11.6-15.3) gm/dL Hct 35.8 (35.0-46.0) % MCV 105.8 H (80.0-100.0) fL MCH 34.8 H (27.0-34.0) pg MCHC 32.9 (32.0-36.0) % RDW 16.3 (11.6-17.2) % Plt Count 190 (150-450) th/mm3 MPV 9.0 (7.0-11.0) fL Neut % (Auto) 80.9 H (16.0-70.0) % Lymph % (Auto) 11.2 (9.0-44.0) % [place] % (Auto) 5.1 (0.0-8.0) % Eos % (Auto) 1.2 (0.0-4.0) % Baso % (Auto) 1.6 (0.0-2.0) % Neut # (Auto) 5.8 (1.8-7.7) th/mm3 Lymph # (Auto) 0.8 L (1.0-4.8) th/mm3 [place] # (Auto) 0.4 (0.0-0.9) th/mm3 Eos # (Auto) 0.1 (0.0-0.4) th/mm3 Baso # (Auto) 0.1 (0.0-0.2) th/mm3 WBC Differential . Differential Comment Auto diff final Sodium 142 (136-145) meq/L Potassium 3.6 (3.5-5.1) meq/L Chloride 109 H (98-107) meq/L Carbon Dioxide 25.2 (21.0-32.0) meq/L Anion Gap 8 (5-15) meq/L BUN 17 (7-18) mg/dL Creatinine 0.85 (0.50-1.00) mg/dL Estimated GFR 65 L (>89) mL/min Random Glucose 81 (74-106) mg/dL Calcium 9.2 (8.5-10.1) mg/dL Total Bilirubin 1.3 H (0.2-1.0) mg/dL AST 29 (15-37) U/L ALT 15 (10-53) U/L Alkaline Phosphatase 89 (45-117) U/L Troponin I Less than 0.02 L (0.02-0.05) ng/mL Total Protein 6.8 (6.4-8.2) g/dL Albumin 3.9 (3.4-5.0) g/dL Urine Color Anette (Yellw/Straw) Urine Clarity Turbid H (Clear) Urine pH 6.0 (5.0-8.5) Ur Specific [place] 1.010 (1.002-1.035) Urine Protein 30 H (Neg-Trace) mg/dL Urine Glucose (UA) Negative (Negative) mg/dL Urine Ketones Negative (Negative) mg/dL Urine Occult Blood Moderate H (Negative) Urine Nitrate Negative (Negative) Urine Bilirubin Negative (Negative) Urine Urobilinogen Less than 2 (Less than 2) mg/dL Ur Leukocyte Esterase Large H (Negative) Urine RBC 30 H (0-3) /hpf Urine WBC 66 H (0-5) /hpf Ur Squamous Epith Cells 4 (0-5) /hpf Urine Bacteria Many H (None) /hpf Urine Mucus Few H (Occasional) /lpf Micro UA Comment Culture indicated Ur Microscopic Review Not Reportable Urine Culture Comments Culture indicated Imaging Data Radiologist's impression: Chest X-Ray 07/12/18 09:26 CONCLUSION: Cardiomegaly without congestive failure. Head CT 07/12/18 09:26 CONCLUSION: Atrophy, otherwise negative for an acute process. Sami Broderick MD FACR . Discharge Plan Discharge Disposition Patient Disposition: 30 Still Patient Discharge Condition Condition: Stable Discharge Details Diagnosis: Stroke Physicians Team ED Provider: Dale Ames Primary Care Provider: UNKNOWN, Rxs /Orders / Referrals /Forms Prescriptions: No Action potassium chloride 20 mEq Packet 4 meq PO DAILY RF: 0 pantoprazole [Protonix] 40 mg Tablet,Delayed Release (Dr/Ec) 40 mg PO DAILY RF: 0 ferrous sulfate 325 mg (65 mg iron) Tablet 325 mg PO DAILY RF: 0 levothyroxine [Synthroid] 200 mcg Tablet 200 mcg PO DAILY RF: 0 furosemide [Lasix] 20 mg Tablet 20 mg PO DAILY RF: 0 gabapentin 100 mg Capsule 100 mg PO BID RF: 0 metoprolol tartrate 25 mg Tablet 12.5 mg PO DAILY RF: 0 Status ED Status: Ready for Discharge
[2018-07-12 10:14] LABS: Alanine Aminotransferase 15 U/L (10-53)
--- NOTE | 2018-07-12 10:16 | XR ---
EXAM DATE: 07/12/2018 10:06 AM EDT AGE/SEX: 73 years / Female INDICATIONS: Short of breath. Possible stroke. CLINICAL DATA: This is the patient's initial encounter. Patient reports that signs and symptoms have been present for 1 day and indicates a pain score of 0/10. MEDICAL/SURGICAL HISTORY: . Hypertension. Glasses. C1 fracture. Atrial fibrillation. Anticoagul ant therapy, Xarelto. Anxiety. . Tonsillectomy. Bilateral knee replacement. [place] [facility] [place] . FINDINGS: The heart is enlarged. There is no overt congestive failure. There is no evidence consolidation pleur al effusion or pneumothorax. Moderate degenerative changes about the right shoulder. CONCLUSION: Cardiomegaly without congestive failure. Electronically signed by: Sami Broderick MD 07/12/2018 10:15 AM EDT
[2018-07-12 10:17] LABS: Bacteria,Urine Many /hpf; Bilirubin,Urine Negative (Negative); Clarity,Urine Turbid (Clear); Color,Urine Amber (Yellw/Straw); Glucose,Urine (UA) Negative (Negative); Leukocyte Esterase,Urine Large (Negative); Mucus,Urine Few /lpf (Occasional); Nitrite,Urine Negative (Negative); Squamous Epithelial Cell,Urine 4 /hpf (0-5)
[2018-07-12 10:18] LABS: Alkaline Phosphatase 89 U/L (45-117); Total Protein 6.8 g/dL (6.4-8.2)
--- NOTE | 2018-07-12 10:20 | CT ---
EXAM DATE: 07/12/2018 10:16 AM EDT AGE/SEX: 73 years / Female INDICATIONS: Altered mental status. CLINICAL DATA: This is the patient's initial encounter. Patient reports that signs and symptoms have been present for 1 day and indicates a pain score of 0/10. MEDICAL/SURGICAL HISTORY: None. None. RADIATION DOSE: 56.35 CTDI (mGy) COMPARISON: [facility] [place], [place]/23/2017. . TECHNIQUE: CT of the head without contrast. Using automated exposure control and adjustment of the mA and/or kV according to patient size, radiation dose was kept as low as reasonably achievable to ob tain optimal diagnostic quality images. DICOM format image data is available electronically for revi ew and comparison. FINDINGS: There is central and cortical atrophy with dilatation of ventricular and sulcal spaces. There is no parenchymal hemorrhage, acute infarction or mass lesion identified. There are no extra-axial fluid c ollections appreciated. Periventricular white matter changes are noted. The posterior fossa is unrem arkable with midline fourth ventricle. The portion of the orbits and paranasal sinuses visualized are unremarkable. CONCLUSION: Atrophy, otherwise negative for an acute process. Sami Broderick MD FACR . Electronically signed by: Sami Broderick MD 07/12/2018 10:19 AM EDT
[2018-07-12 10:22] LABS: Albumin 3.9 g/dL (3.4-5.0); Anion Gap 8 meq/L (5-15); Aspartate Aminotransferase 29 U/L (15-37); Blood Urea Nitrogen 17 mg/dL (7-18); Calcium 9.2 mg/dL (8.5-10.1); Carbon Dioxide 25.2 meq/L (21.0-32.0); Chloride 109 meq/L (98-107); Glomerular Filtration Rate 65 mL/min (>89); Glucose,Random 81 mg/dL (74-106); Potassium 3.6 meq/L (3.5-5.1); Sodium 142 meq/L (136-145)
[2018-07-12] MEDS ORDERED: Dextrose 50% in Water 50 ML Vial IV.PUSH PRN (12:04)
[2018-07-12] MEDS ORDERED: Haloperidol Inj 5 MG/ML Ampul IV.PUSH PRN (12:10)
[2018-07-12] MEDS ORDERED: LORazepam 1 MG Tablet PO PRN (12:10)
--- NOTE | 2018-07-12 12:27 | P.CONNEU ---
History of Present Illness Service: Neurology Primary Care Provider: UNKNOWN Chief Complaint: Suspected stroke History of Present Illness: 73-year-old female arrives to the emergency department with complaints of confusion and blurry vision. Confusion has improved blurry vision persists most on the left side. Onset unknown therefore not IV TPA candidate. Underlying history atrial fibrillation apparently is not on any blood thinners for it. Was taken Xarelto before. They are not sure why she was taken off of it. Patient states she tolerated it well. Denies any GI bleed or any other systemic bleed from it. She relocated from [facility] and currently living with her daughter and is establishing medical care. CT brain scan negative for any acute lesion Review of Systems All other systems reviewed negative except as stated in HPI [facility] - History History Provided By: Patient, Significant Other - Surgical History Surgical History: Surgical History (Last Updated 07/12/18 @ 09:12 by Maty Pettit) Hx of abdominal surgery Hx of knee surgery Hx of tonsillectomy - Tobacco History Second Hand Smoke Exposure: No Smoking Status: Never smoker - Alcohol History How Often Do You Have a Drink Containing Alcohol: 4 or more times a week - Substance Use History Substance History: No History of Abuse - Travel History Recent Travel in the [place] Within the Last 8 Weeks: No Recent Travel Out of the Country Within the Last 8 Weeks: No - Immunization History Tetanus Immunization: >5 Years Hx Influenza Vaccine This Season: No Medications and Allergies Active Medications: Active Medications Aspirin (Aspirin Chew) 81 mg PO DAILY LURDES Dextrose (D50w Vial) 50 ml IV.PUSH UNSCH PRN PRN Reason: PER HYPOGLYCEMIA PROTOCOL Ferrous Sulfate (Ferosul) 325 mg PO DAILY LURDES Flumazenil (Romazecon Inj) 0.2 mg IV.PUSH Q1M PRN PRN Reason: OVERSEDATION Furosemide (Lasix) 20 mg PO DAILY LURDES Gabapentin (Neurontin) 100 mg PO BID LURDES Glucagon (Glucagon Inj) 1 mg OTHER UNSCH PRN PRN Reason: for Hypoglycemia Protocol Haloperidol Lactate (Haldol Inj) 1 mg IV.PUSH Q15M PRN PRN Reason: for severe agitation Sodium Chloride (Ns Inj) 1,000 mls @ 120 mls/hr IV.CONT .Q8H20M LURDES Insulin Aspart (Novolog Insulin Correctional Sugar Inj) 0 unit SQ ACHS LURDES; Protocol Levothyroxine Sodium (Synthroid) 200 mcg PO DAILY@0600 LURDES Lorazepam (Ativan) 1 mg PO Q4H PRN PRN Reason: for CIWA 8-10 Lorazepam (Ativan) 2 mg PO Q2H PRN PRN Reason: for CIWA 11-14 Lorazepam (Ativan Inj) 2 mg IV.PUSH Q2H PRN PRN Reason: for CIWA 11-14 Lorazepam (Ativan Inj) 2 mg IV.PUSH Q1H PRN PRN Reason: for CIWA 15-20 Lorazepam (Ativan Inj) 1 mg IV.PUSH Q4H PRN PRN Reason: for CIWA 8-10 Lorazepam (Ativan Inj) 2 mg IV.PUSH Q15M PRN PRN Reason: for CIWA > 20 Metoprolol Tartrate (Lopressor) 12.5 mg PO DAILY LURDES Pantoprazole Sodium (Protonix) 40 mg PO DAILY LURDES Potassium Chloride (Klor-Con 8) 4 meq PO DAILY LURDES Sodium Chloride (Ns Flush) 2 ml IV.FLUSH PRN PRN PRN Reason: FLUSH AFTER USING IV ACCESS Last Admin: 07/12/18 09:36 Dose: 2 ml Sodium Chloride (Ns Flush) 2 ml IV.FLUSH BID LURDES Sodium Chloride (Ns Flush) 2 ml IV.FLUSH PRN PRN PRN Reason: FLUSH AFTER USING IV ACCESS Trimethoprim/Sulfamethoxazole (Bactrim Ds) 1 tab PO Q12HR LURDES Vitamin B Complex/Vit C/Folic Acid (Nephrocaps) 1 tab PO DAILY LURDES Allergies Allergy/AdvReac Type Severity Reaction Status Date / Time No Known Allergies Allergy Verified 07/12/18 09:10 Home Medications Medication Instructions Recorded Confirmed Type ferrous sulfate 325 mg PO DAILY 07/12/18 07/12/18 History furosemide [Lasix] 20 mg PO DAILY 07/12/18 07/12/18 History gabapentin 100 mg PO BID 07/12/18 07/12/18 History levothyroxine [Synthroid] 200 mcg PO DAILY 07/12/18 07/12/18 History metoprolol tartrate 12.5 mg PO DAILY 07/12/18 07/12/18 History pantoprazole [Protonix] 40 mg PO DAILY 07/12/18 07/12/18 History potassium chloride 4 meq PO DAILY 07/12/18 07/12/18 History Exam Vital signs: Vital Signs 07/12/18 08:53 07/12/18 09:26 07/12/18 10:47 Temperature 97.7 F Pulse Rate 83 83 83 Respiratory Rate 18 18 Blood Pressure 156/98 H 173/96 H Pulse Oximetry 95 97 97 Intake & Output 07/11/18 07/12/18 07/12/18 18:59 06:59 18:59 Weight 79.379 kg Narrative: GENERAL: in NAD, SKIN: Warm and dry. HEAD: Atraumatic. Normocephalic. EYES: Pupils equal and round. No scleral icterus. ENT: No nasal bleeding or discharge. Mucous membranes pink and moist. NECK: Trachea midline. No JVD. CARDIOVASCULAR: Irregularly irregular. RESPIRATORY: No accessory muscle use. Clear to auscultation. Breath sounds equal bilaterally. GASTROINTESTINAL: Abdomen soft, non-tender, nondistended. MUSCULOSKELETAL: Extremities without clubbing, cyanosis, or edema. No obvious deformities. NEUROLOGICAL: Awake and alert. Oriented 3 no aphasia, fluent articulate, No facial asymmetry, OU 3-2mm, eomi, left homonymous hemianopsia, No drift, Motor grossly within normal limits. Five out of 5 muscle strength in the arms and legs. Tone normal in all 4 limbs, stocking distribution reduced pinprick light touch, msr 1-2+ sym, no clonus, planterflexor, PSYCHIATRIC: Appropriate mood and affect; insight and judgment normal. - Constitutional no acute distress - Routine HEENT Exam Head: Present: normocephalic Eye: Present: EOMI Results - Labs CBC & Chem 7: 07/12/18 09:30 07/12/18 09:30 Labs: Laboratory Results - last 24 hr 07/12/18 07/12/18 07/12/18 09:30 09:30 09:31 WBC 7.2 RBC 3.38 L Hgb 11.8 Hct 35.8 MCV 105.8 H MCH 34.8 H MCHC 32.9 RDW 16.3 Plt Count 190 MPV 9.0 Neut % (Auto) 80.9 H Lymph % (Auto) 11.2 [place] % (Auto) 5.1 Eos % (Auto) 1.2 Baso % (Auto) 1.6 Neut # (Auto) 5.8 Lymph # (Auto) 0.8 L [place] # (Auto) 0.4 Eos # (Auto) 0.1 Baso # (Auto) 0.1 WBC Differential . Differential Comment Auto diff final Sodium 142 Potassium 3.6 Chloride 109 H Carbon Dioxide 25.2 Anion Gap 8 BUN 17 Creatinine 0.85 Estimated GFR 65 L Random Glucose 81 Calcium 9.2 Total Bilirubin 1.3 H AST 29 ALT 15 Alkaline Phosphatase 89 Troponin I Less than 0.02 L Total Protein 6.8 Albumin 3.9 Urine Color Anette Urine Clarity Turbid H Urine pH 6.0 Ur Specific [place] 1.010 Urine Protein 30 H Urine Glucose (UA) Negative Urine Ketones Negative Urine Occult Blood Moderate H Urine Nitrate Negative Urine Bilirubin Negative Urine Urobilinogen Less than 2 Ur Leukocyte Esterase Large H Urine RBC 30 H Urine WBC 66 H Ur Squamous Epith Cells 4 Urine Bacteria Many H Urine Mucus Few H Micro UA Comment Culture indicated Ur Microscopic Review Not Reportable Urine Culture Comments Culture indicated - Imaging Impressions Chest X-Ray 07/12/18 09:26 CONCLUSION: Cardiomegaly without congestive failure. Head CT 07/12/18 09:26 CONCLUSION: Atrophy, otherwise negative for an acute process. Sami Broderick MD FACR . Review/Management - Diagnosis (1) Atrial fibrillation Code(s): I48.91 - Unspecified atrial fibrillation Status: Acute Current Visit: Yes - Review/Management Plan: Acute embolic strokes Posterior circulation Suspect cardioembolic from atrial fibrillation Recommendation Aspirin and low-dose Xarelto; full strength 1-[address] brain scan performed negative for any hemorrhage and aspirin can be discontinued at the time MRA brain Echo, lipid profile Telemetry Therapy
--- NOTE | 2018-07-12 12:33 | MR ---
EXAM DATE: 07/12/2018 12:28 PM EDT AGE/SEX: 73 years / Female INDICATIONS: Confusion. Blurred vision CLINICAL DATA: This is the patient's initial encounter. Patient reports that signs and symptoms have been present for 1 day and indicates a pain score of 0/10. MEDICAL/SURGICAL HISTORY: Hypertension. Tonsillectomy. Total knee replacement, left. Total kn ee replacement, right. Stomach abscess. COMPARISON: [facility] – [place], [place] HEAD W/O CONTRAST, 07/12/2018. . TECHNIQUE: Multiplanar, multisequence examination of the brain was performed without contrast. FINDINGS: Patient demonstrates multiple foci of restricted diffusion within the bilateral cerebellar hemisphere s, bilateral parieto-occipital cortices and right occipital lobe. There is corresponding increased FL AIR signal. This is characteristic of foci of acute infarction. There is diffuse atrophy. There is mo derate confluent increased FLAIR signal in the bilateral periventricular white matter and centrum avinash iovale. There is no mass. There is some blooming artifact at the right occipital infarct which may re flect a small amount of hemorrhage. CONCLUSION: 1. Multiple foci of acute infarction are noted as above. Electronically signed by: Víctor Allan MD 07/12/2018 12:31 PM EDT
[2018-07-12] MEDS: Sod Chloride 0.9% Inj 1,000 ML IV.CONT SCH ×2 (12:37→22:00)
[2018-07-12] MEDS: Metoprolol Tartrate 25 MG Tablet PO SCH (12:38)
[2018-07-12] MEDS: Vitamin B Complex/Vit C/Folic Tablet PO SCH (12:38)
--- NOTE | 2018-07-12 13:16 | P.HPFP ---
History of Present Illness Primary Care Physician: UNKNOWN <Montez Vasquez L - 07/12/18 16:31> UNKNOWN <MerrillStefany Aguilar - 07/12/18 13:15> Chief Complaint: Suspected stroke <MerrillStefany Aguilar - 07/12/18 13:15> History of Present Illness: Ms Andrade is a 73-year-old female with past medical history of A. fib who is presenting for evaluation of confusion this morning. She reports that last night prior to going to bed she was then her normal state of health, no symptoms at that time. This morning she woke up and she was unsure where she was, when it was. Her sister had to reorient her. She was unable to make out faces when looking directly at someone and was having double vision. her sister also reports that the patient's eyes were not "in sync" with 1 deviated out to the side. Her symptoms are slightly improved since admission to the ED. she denies weakness, dizziness, slurred speech, facial droop, chest pain, headache, history of strokes or TIAs, history of MT, histor of DVT or PE. She does report a similar episode last Saturday during travel down from [place]. She woke up in her hotel room and was very confused, sister reorientate her says that the episode lasted less than an hour. At that time she was not having any vision changes. Family medical history significant for strokes in the mother. she is not currently on anticoagulation because her doctor in [place] took her off of it she is unable to tell us why. PMH: A. fib Osteoarthritis Hypertension Recurrent UTIs Hypothyroid GERD H/o stomach abscess Meds: Levothyroxine Lasix Gabapentin Metoprolol Pantoprazole Potassium chloride Sx: Total knee replacement, bilateral Abscess of the stomach I&D, March 2018 Cataract removal FMH: Mother: Strokes Father: Hypertension, leukemia Social: Tobacco- never smoker EtOH-currently 2 drinks per day. Patient reports previous heavy use after the of her . Recreational drugs- none <MerrillStefany Aguilar - 07/12/18 13:15> - Diagnosis (1) Cerebrovascular accident (CVA) (2) UTI (urinary tract infection) (3) Hypertension (4) GERD (gastroesophageal reflux disease) (5) Neuropathy (6) Hypothyroid (7) Atrial fibrillation (8) History of alcohol abuse (9) Nutrition, metabolism, and development symptoms <Montez Vasquez 07/12/18 16:31> (1) Cerebrovascular accident (CVA) (2) UTI (urinary tract infection) (3) Hypertension (4) GERD (gastroesophageal reflux disease) (5) Neuropathy (6) Hypothyroid (7) Atrial fibrillation (8) History of alcohol abuse (9) Nutrition, metabolism, and development symptoms <MerrillStefany torres 07/12/18 12:35> Inpatient Certification: I certify that the inpatient services were ordered in accordance with Medicare regulations governing the order. This includes certification that hospital inpatient services are reasonable and necessary and in the case of services not specified as inpatient-only under 42 CFR 419.22(n), that they are appropriately provided as inpatient services in accordance to with the 2-midnight benchmark under 43 CFR 412.3(e) <Montez Vasquez 07/12/18 16:31> I certify that the inpatient services were ordered in accordance with Medicare regulations governing the order. This includes certification that hospital inpatient services are reasonable and necessary and in the case of services not specified as inpatient-only under 42 CFR 419.22(n), that they are appropriately provided as inpatient services in accordance to with the 2-midnight benchmark under 43 CFR 412.3(e) <Stefany Momin 07/12/18 13:15> Estimated Total Length of Stay (Days): 2 <Stefany Momin 07/12/18 13:15> Plans for Post Hospital Care: Not yet determined <Stefany Momin 07/12/18 13: 15> Review of Systems Constitutional: Denies chills, Denies fever(s), Denies headache(s), Denies weakness <Stefany Momin 07/12/18 13:15> Eyes: Reports blurry vision, Reports change in vision, Reports double vision < Stefany Momin 07/12/18 13:15> Ears, Nose, Mouth, and Throat: Denies mouth pain, Denies nasal congestion, Denies nasal discharge, Denies neck pain <Stefany Momin 07/12/18 13:15> Cardiovascular: Denies chest pain, Denies fainting, Denies lightheadedness, Denies shortness of breath, Denies shortness of breath when lying down <Stefany Momin 07/12/18 13:15> Respiratory: Reports wheezing (Only when outside during the day, relates it to humidity), Denies cough <Stefany Momin 07/12/18 13:15> Gastrointestinal: Denies abdominal pain, Denies change in stools, Denies nausea , Denies vomiting <Stefany Momin 07/12/18 13:15> Genitourinary: Denies blood in urine, Denies difficulty urinating, Denies painful urination <Stefany Momin 07/12/18 13:15> Musculoskeletal: Reports joint pain <Stefany Momin 07/12/18 13:15> Neurologic: Reports confusion, Reports lack of coordination, Reports tingling/ numbness/burning sensations (Bilateral feet), Denies abnormal speech, Denies dizziness, Denies fainting, Denies localized weakness, Denies loss of vision, Denies unsteadiness <Stefany Momin 07/12/18 13:15> PMF - History History Provided By: Patient, Significant Other <Stefany Momin 07/12/18 13: 15> - Surgical History Surgical History: Surgical History (Last Updated 07/12/18 @ 09:12 by Maty Pettit) Hx of abdominal surgery Hx of knee surgery Hx of tonsillectomy <Montez Vasquez - 07/12/18 16:31> Surgical History (Last Updated 07/12/18 @ 09:12 by Maty Pettit) Hx of abdominal surgery Hx of knee surgery Hx of tonsillectomy <Stefany Momin 07/12/18 13:15> - Tobacco History Second Hand Smoke Exposure: No <Stefany Momin 07/12/18 13:15> Smoking Status: Never smoker <Stefany Momin 07/12/18 13:15> - Alcohol History How Often Do You Have a Drink Containing Alcohol: 4 or more times a week < Stefany Momin 07/12/18 13:15> - Substance Use History Substance History: No History of Abuse <Stefany Momin 07/12/18 13:15> - Travel History Recent Travel in the [facility] Within the Last 8 Weeks: No <Stefany Momin - 13:15> Recent Travel Out of the Country Within the Last 8 Weeks: No <Stefany Momin - 07/12/18 13:15> - Immunization History Tetanus Immunization: >5 Years <Stefany Momin - 07/12/18 13:15> Hx Influenza Vaccine This Season: No <Stefany Momin 07/12/18 13:15> Medications and Allergies Allergies Allergy/AdvReac Type Severity Reaction Status Date / Time No Known Allergies Allergy Verified 07/12/18 09:10 <Montez Vasquez - 07/12/18 16:31> Home Medications Medication Instructions Recorded Confirmed Type ferrous sulfate 325 mg PO DAILY 07/12/18 07/12/18 History furosemide [Lasix] 20 mg PO DAILY 07/12/18 07/12/18 History gabapentin 100 mg PO BID 07/12/18 07/12/18 History levothyroxine [Synthroid] 200 mcg PO DAILY 07/12/18 07/12/18 History metoprolol tartrate 12.5 mg PO DAILY 07/12/18 07/12/18 History pantoprazole [Protonix] 40 mg PO DAILY 07/12/18 07/12/18 History potassium chloride 4 meq PO DAILY 07/12/18 07/12/18 History <Montez Vasquez - 07/12/18 16:31> Active Medications: Active Medications Aspirin (Aspirin Chew) 81 mg PO DAILY [facility] Dextrose (D50w Vial) 50 ml IV.PUSH UNSCH PRN PRN Reason: PER HYPOGLYCEMIA PROTOCOL Ferrous Sulfate (Ferosul) 325 mg PO DAILY [facility] Flumazenil (Romazecon Inj) 0.2 mg IV.PUSH Q1M PRN PRN Reason: OVERSEDATION Furosemide (Lasix) 20 mg PO DAILY [facility] Gabapentin (Neurontin) 100 mg PO BID [facility] Glucagon (Glucagon Inj) 1 mg OTHER UNSCH PRN PRN Reason: for Hypoglycemia Protocol Haloperidol Lactate (Haldol Inj) 1 mg IV.PUSH Q15M PRN PRN Reason: for severe agitation Sodium Chloride (Ns Inj) 1,000 mls @ 120 mls/hr IV.CONT .Q8H20M [facility] Last Admin: 07/12/18 12:37 Dose: 120 mls/hr Insulin Aspart (Novolog Insulin Correctional Sugar Inj) 0 unit SQ ACHS [facility]; Protocol Levothyroxine Sodium (Synthroid) 200 mcg PO DAILY@0600 [facility] Lorazepam (Ativan) 1 mg PO Q4H PRN PRN Reason: for CIWA 8-10 Lorazepam (Ativan) 2 mg PO Q2H PRN PRN Reason: for CIWA 11-14 Lorazepam (Ativan Inj) 2 mg IV.PUSH Q2H PRN PRN Reason: for CIWA 11-14 Lorazepam (Ativan Inj) 2 mg IV.PUSH Q1H PRN PRN Reason: for CIWA 15-20 Lorazepam (Ativan Inj) 1 mg IV.PUSH Q4H PRN PRN Reason: for CIWA 8-10 Lorazepam (Ativan Inj) 2 mg IV.PUSH Q15M PRN PRN Reason: for CIWA > 20 Metoprolol Tartrate (Lopressor) 12.5 mg PO DAILY [facility] Last Admin: 07/12/18 12:38 Dose: 12.5 mg Pantoprazole Sodium (Protonix) 40 mg PO DAILY [facility] Potassium Chloride (Klor-Con 8) 8 meq PO DAILY [facility] Rivaroxaban (Xarelto) 10 mg PO DAILY [facility] Sodium Chloride (Ns Flush) 2 ml IV.FLUSH PRN PRN PRN Reason: FLUSH AFTER USING IV ACCESS Last Admin: 07/12/18 09:36 Dose: 2 ml Sodium Chloride (Ns Flush) 2 ml IV.FLUSH BID [facility] Sodium Chloride (Ns Flush) 2 ml IV.FLUSH PRN PRN PRN Reason: FLUSH AFTER USING IV ACCESS Trimethoprim/Sulfamethoxazole (Bactrim Ds) 1 tab PO Q12HR [facility] Last Admin: 07/12/18 12:38 Dose: 1 tab Vitamin B Complex/Vit C/Folic Acid (Nephrocaps) 1 tab PO DAILY [facility] Last Admin: 07/12/18 12:38 Dose: 1 tab <Montez Vasquez - 07/12/18 16:31> Active Medications Aspirin (Aspirin Chew) 81 mg PO DAILY [facility] Dextrose (D50w Vial) 50 ml IV.PUSH UNSCH PRN PRN Reason: PER HYPOGLYCEMIA PROTOCOL Ferrous Sulfate (Ferosul) 325 mg PO DAILY [facility] Flumazenil (Romazecon Inj) 0.2 mg IV.PUSH Q1M PRN PRN Reason: OVERSEDATION Furosemide (Lasix) 20 mg PO DAILY [facility] Gabapentin (Neurontin) 100 mg PO BID [facility] Glucagon (Glucagon Inj) 1 mg OTHER UNSCH PRN PRN Reason: for Hypoglycemia Protocol Haloperidol Lactate (Haldol Inj) 1 mg IV.PUSH Q15M PRN PRN Reason: for severe agitation Sodium Chloride (Ns Inj) 1,000 mls @ 120 mls/hr IV.CONT .Q8H20M [facility] Insulin Aspart (Novolog Insulin Correctional Sugar Inj) 0 unit SQ ACHS [facility]; Protocol Levothyroxine Sodium (Synthroid) 200 mcg PO DAILY@0600 [facility] Lorazepam (Ativan) 1 mg PO Q4H PRN PRN Reason: for CIWA 8-10 Lorazepam (Ativan) 2 mg PO Q2H PRN PRN Reason: for CIWA 11-14 Lorazepam (Ativan Inj) 2 mg IV.PUSH Q2H PRN PRN Reason: for CIWA 11-14 Lorazepam (Ativan Inj) 2 mg IV.PUSH Q1H PRN PRN Reason: for CIWA 15-20 Lorazepam (Ativan Inj) 1 mg IV.PUSH Q4H PRN PRN Reason: for CIWA 8-10 Lorazepam (Ativan Inj) 2 mg IV.PUSH Q15M PRN PRN Reason: for CIWA > 20 Metoprolol Tartrate (Lopressor) 12.5 mg PO DAILY [facility] Pantoprazole Sodium (Protonix) 40 mg PO DAILY [facility] Potassium Chloride (Klor-Con 8) 4 meq PO DAILY [facility] Sodium Chloride (Ns Flush) 2 ml IV.FLUSH PRN PRN PRN Reason: FLUSH AFTER USING IV ACCESS Last Admin: 07/12/18 09:36 Dose: 2 ml Sodium Chloride (Ns Flush) 2 ml IV.FLUSH BID [facility] Sodium Chloride (Ns Flush) 2 ml IV.FLUSH PRN PRN PRN Reason: FLUSH AFTER USING IV ACCESS Trimethoprim/Sulfamethoxazole (Bactrim Ds) 1 tab PO Q12HR [facility] Vitamin B Complex/Vit C/Folic Acid (Nephrocaps) 1 tab PO DAILY [facility] <Stefany Momin - 07/12/18 13:15> Exam Vital signs: Vital Signs 07/12/18 08:53 07/12/18 09:26 07/12/18 10:47 Temperature 97.7 F Pulse Rate 83 83 83 Respiratory Rate 18 18 Blood Pressure 156/98 H 173/96 H Pulse Oximetry 95 97 97 07/12/18 12:04 07/12/18 12:05 07/12/18 12:47 Temperature 97.9 F Pulse Rate 80 78 Respiratory Rate 16 Blood Pressure 180/83 H Pulse Oximetry 97 98 Intake & Output 07/11/18 07/12/18 07/12/18 18:59 06:59 18:59 Weight 79.379 kg <PedroMontez Edmundo - 07/12/18 16:31> Vital Signs 07/12/18 08:53 07/12/18 09:26 07/12/18 10:47 Temperature 97.7 F Pulse Rate 83 83 83 Respiratory Rate 18 18 Blood Pressure 156/98 H 173/96 H Pulse Oximetry 95 97 97 Intake & Output 07/11/18 07/12/18 07/12/18 18:59 06:59 18:59 Weight 79.379 kg <Stefany Momin - 07/12/18 13:15> Narrative: GENERAL: Well-developed female lying in bed resting comfortably. Eyes closed during most exam. HEAD: Atraumatic. Normocephalic. EYES: Right eye minimally deviated laterally. Pupils equal and round, reactive to light and accommodation. No scleral icterus. No injection or drainage. ENT: No nasal bleeding or discharge. Mucous membranes pink and moist. Pharynx slightly erythematous. NECK: Trachea midline. No JVD. CARDIOVASCULAR: Irregularly irregular rate and rhythm. No carotid bruits auscultated RESPIRATORY: No accessory muscle use. Clear to auscultation. Breath sounds equal bilaterally. GASTROINTESTINAL: Abdomen soft, non-tender, nondistended. MUSCULOSKELETAL: Extremities without clubbing, cyanosis, or edema. No obvious deformities. NEUROLOGICAL: Awake and alert. Ocular motion intact. No ptosis noted. Facial sensation and movement normal. Palate and uvula elevate symmetrically. Speech normal. Shoulder shrug symmetrical. tongue protrudes midline. Sensation intact bilaterally though patient reports might be slightly decreased on left side. Strength 5 out of 5 bilaterally in upper and lower extremities. Finger to nose test shows mild dysmetria. Rapid alternating movements normal. Gait deferred at this time. PSYCHIATRIC: Appropriate mood and affect; insight and judgment normal. <Stefany Momin 07/12/18 13:15> Results - Labs Result diagrams: 07/12/18 09:30 07/12/18 09:30 <Montez Vasquez L - 07/12/18 16:31> Abnormal lab results 07/12/18 07/12/18 07/12/18 Range/Units 09:30 09:30 09:30 RBC 3.38 L (4.00-5.30) mil/mm3 MCV 105.8 H (80.0-100.0) fL MCH 34.8 H (27.0-34.0) pg Neut % (Auto) 80.9 H (16.0-70.0) % Lymph # (Auto) 0.8 L (1.0-4.8) th/mm3 Chloride 109 H (98-107) meq/L Estimated GFR 65 L (>89) mL/min Total Bilirubin 1.3 H (0.2-1.0) mg/dL Troponin I Less than 0.02 L (0.02-0.05) ng/mL Folate 18.6 H (3.1-17.5) ng/mL Urine Clarity (Clear) Urine Protein (Neg-Trace) mg/dL Urine Occult Blood (Negative) Ur Leukocyte Esterase (Negative) Urine RBC (0-3) /hpf Urine WBC (0-5) /hpf Urine Bacteria (None) /hpf Urine Mucus (Occasional) /lpf 07/12/18 Range/Units 09:31 RBC (4.00-5.30) mil/mm3 MCV (80.0-100.0) fL MCH (27.0-34.0) pg Neut % (Auto) (16.0-70.0) % Lymph # (Auto) (1.0-4.8) th/mm3 Chloride (98-107) meq/L Estimated GFR (>89) mL/min Total Bilirubin (0.2-1.0) mg/dL Troponin I (0.02-0.05) ng/mL Folate (3.1-17.5) ng/mL Urine Clarity Turbid H (Clear) Urine Protein 30 H (Neg-Trace) mg/dL Urine Occult Blood Moderate H (Negative) Ur Leukocyte Esterase Large H (Negative) Urine RBC 30 H (0-3) /hpf Urine WBC 66 H (0-5) /hpf Urine Bacteria Many H (None) /hpf Urine Mucus Few H (Occasional) /lpf Short CBC 07/12/18 Range/Units 09:30 WBC 7.2 (4.0-11.0) th/mm3 Hgb 11.8 (11.6-15.3) gm/dL Hct 35.8 (35.0-46.0) % Plt Count 190 (150-450) th/mm3 BMP 07/12/18 09:30 Sodium 142 Potassium 3.6 Chloride 109 H Carbon Dioxide 25.2 BUN 17 Creatinine 0.85 Calcium 9.2 Cardiac Enzymes 07/12/18 Range/Units 09:30 Troponin I Less than 0.02 L (0.02-0.05) ng/mL Liver Function 07/12/18 Range/Units 09:30 Total Bilirubin 1.3 H (0.2-1.0) mg/dL AST 29 (15-37) U/L ALT 15 (10-53) U/L Alkaline Phosphatase 89 (45-117) U/L Albumin 3.9 (3.4-5.0) g/dL Urine 07/12/18 Range/Units 09:31 Urine Color Anette (Yellw/Straw) Urine Clarity Turbid H (Clear) Urine pH 6.0 (5.0-8.5) Ur Specific [place] 1.010 (1.002-1.035) Urine Protein 30 H (Neg-Trace) mg/dL Urine Glucose (UA) Negative (Negative) mg/dL <Montez Vasquez L - 07/12/18 16:31> Abnormal lab results 07/12/18 07/12/18 07/12/18 Range/Units 09:30 09:30 09:31 RBC 3.38 L (4.00-5.30) mil/mm3 MCV 105.8 H (80.0-100.0) fL MCH 34.8 H (27.0-34.0) pg Neut % (Auto) 80.9 H (16.0-70.0) % Lymph # (Auto) 0.8 L (1.0-4.8) th/mm3 Chloride 109 H (98-107) meq/L Estimated GFR 65 L (>89) mL/min Total Bilirubin 1.3 H (0.2-1.0) mg/dL Troponin I Less than 0.02 L (0.02-0.05) ng/mL Urine Clarity Turbid H (Clear) Urine Protein 30 H (Neg-Trace) mg/dL Urine Occult Blood Moderate H (Negative) Ur Leukocyte Esterase Large H (Negative) Urine RBC 30 H (0-3) /hpf Urine WBC 66 H (0-5) /hpf Urine Bacteria Many H (None) /hpf Urine Mucus Few H (Occasional) /lpf Short CBC 07/12/18 Range/Units 09:30 WBC 7.2 (4.0-11.0) th/mm3 Hgb 11.8 (11.6-15.3) gm/dL Hct 35.8 (35.0-46.0) % Plt Count 190 (150-450) th/mm3 BMP 07/12/18 09:30 Sodium 142 Potassium 3.6 Chloride 109 H Carbon Dioxide 25.2 BUN 17 Creatinine 0.85 Calcium 9.2 Cardiac Enzymes 07/12/18 Range/Units 09:30 Troponin I Less than 0.02 L (0.02-0.05) ng/mL Liver Function 07/12/18 Range/Units 09:30 Total Bilirubin 1.3 H (0.2-1.0) mg/dL AST 29 (15-37) U/L ALT 15 (10-53) U/L Alkaline Phosphatase 89 (45-117) U/L Albumin 3.9 (3.4-5.0) g/dL Urine 07/12/18 Range/Units 09:31 Urine Color Anette (Yellw/Straw) Urine Clarity Turbid H (Clear) Urine pH 6.0 (5.0-8.5) Ur Specific [place] 1.010 (1.002-1.035) Urine Protein 30 H (Neg-Trace) mg/dL Urine Glucose (UA) Negative (Negative) mg/dL <Stefany Momin - 07/12/18 13:15> - Imaging Impressions Carotid Doppler Study 07/12/18 00:00 CONCLUSION: 1. Right Internal Carotid Artery: No significant stenosis or atherosclerotic plaque is visualized. 2. Left Internal Carotid Artery: No significant stenosis or atherosclerotic plaque is visualized. Chest X-Ray 07/12/18 09:26 CONCLUSION: Cardiomegaly without congestive failure. Head CT 07/12/18 09:26 CONCLUSION: Atrophy, otherwise negative for an acute process. Sami Broderick MD FACR . Head MRI 07/12/18 11:11 CONCLUSION: 1. Multiple foci of acute infarction are noted as above. Head MRA 07/12/18 12:46 CONCLUSION: 1. Atherosclerotic changes are seen involving the middle cerebral arteries bilaterally. <Montez Vasquez - 07/12/18 16:31> Impressions Chest X-Ray 07/12/18 09:26 CONCLUSION: Cardiomegaly without congestive failure. Head CT 07/12/18 09:26 CONCLUSION: Atrophy, otherwise negative for an acute process. Sami Broderick MD FACR . Head MRI 07/12/18 11:11 CONCLUSION: 1. Multiple foci of acute infarction are noted as above. <Stefany Momin - 07/12/18 13:15> Caprini VTE Risk Assessment Caprini VTE Risk Assessment: Moderate/High Risk (score >= 2) <Stefany Momin - 07/12/18 13:15> Caprini Risk Assessment Model: Point Value = 1 Point Value = 2 Point Value = 3 Point Value = 5 Age 41-60 Minor surgery BMI > 25 kg/m2 Swollen legs Varicose veins or History of unexplained or recurrent spontaneous Oral contraceptives or hormone replacement Sepsis (< 1 month) Serious lung disease, including pneumonia (< 1 month) Abnormal pulmonary function Acute myocardial infarction Congestive heart failure (< 1 month) History of inflammatory bowel disease Medical patient at bed rest Age 61-74 Arthroscopic surgery Major open surgery (> 45 min) Laparoscopic surgery (> 45 min) Malignancy Confined to bed (> 72 hours) Immobilizing plaster cast Central venous access Age >= 75 History of VTE Family history of VTE Factor V Leiden Prothrombin [id number] Lupus anticoagulant Anticardiolipin antibodies Elevated serum homocysteine Heparin-induced thrombocytopenia Other congenital or acquired thrombophilia Stroke (< 1 month) Elective arthroplasty Hip, pelvis, or leg fracture Acute spinal cord injury (< 1 month) <Montez Vasquez - 07/12/18 16:31> Point Value = 1 Point Value = 2 Point Value = 3 Point Value = 5 Age 41-60 Minor surgery BMI > 25 kg/m2 Swollen legs Varicose veins or History of unexplained or recurrent spontaneous Oral contraceptives or hormone replacement Sepsis (< 1 month) Serious lung disease, including pneumonia (< 1 month) Abnormal pulmonary function Acute myocardial infarction Congestive heart failure (< 1 month) History of inflammatory bowel disease Medical patient at bed rest Age 61-74 Arthroscopic surgery Major open surgery (> 45 min) Laparoscopic surgery (> 45 min) Malignancy Confined to bed (> 72 hours) Immobilizing plaster cast Central venous access Age >= 75 History of VTE Family history of VTE Factor V Leiden Prothrombin [id number] Lupus anticoagulant Anticardiolipin antibodies Elevated serum homocysteine Heparin-induced thrombocytopenia Other congenital or acquired thrombophilia Stroke (< 1 month) Elective arthroplasty Hip, pelvis, or leg fracture Acute spinal cord injury (< 1 month) <Stefany Momin E - 07/12/18 13:15> Prophylaxis Regimen: Total Risk Factor Score Risk Level Prophylaxis Regimen 0-1 Low Early ambulation 2 Moderate Order ONE of the following: *Sequential Compression Device (SCD) *Heparin 5000 units SQ BID 3-4 Higher Order ONE of the following medications: *Heparin 5000 units SQ TID *Enoxaparin/Lovenox 40 mg SQ daily (WT < 150 kg, CrCl > 30 mL/min) *Enoxaparin/Lovenox 30 mg SQ daily (WT < 150 kg, CrCl > 10-29 mL/min) *Enoxaparin/Lovenox 30 mg SQ BID (WT < 150 kg, CrCl > 30 mL/min) AND/OR *Sequential Compression Device (SCD) 5 or more Highest Order ONE of the following medications: *Heparin 5000 units SQ TID (Preferred with Epidurals) *Enoxaparin/Lovenox 40 mg SQ daily (WT < 150 kg, CrCl > 30 mL/min) *Enoxaparin/Lovenox 30 mg SQ daily (WT < 150 kg, CrCl > 10-29 mL/min) *Enoxaparin/Lovenox 30 mg SQ BID (WT < 150 kg, CrCl > 30 mL/min) AND *Sequential Compression Device (SCD) <Montez Vasquez L - 07/12/18 16:31> Total Risk Factor Score Risk Level Prophylaxis Regimen 0-1 Low Early ambulation 2 Moderate Order ONE of the following: *Sequential Compression Device (SCD) *Heparin 5000 units SQ BID 3-4 Higher Order ONE of the following medications: *Heparin 5000 units SQ TID *Enoxaparin/Lovenox 40 mg SQ daily (WT < 150 kg, CrCl > 30 mL/min) *Enoxaparin/Lovenox 30 mg SQ daily (WT < 150 kg, CrCl > 10-29 mL/min) *Enoxaparin/Lovenox 30 mg SQ BID (WT < 150 kg, CrCl > 30 mL/min) AND/OR *Sequential Compression Device (SCD) 5 or more Highest Order ONE of the following medications: *Heparin 5000 units SQ TID (Preferred with Epidurals) *Enoxaparin/Lovenox 40 mg SQ daily (WT < 150 kg, CrCl > 30 mL/min) *Enoxaparin/Lovenox 30 mg SQ daily (WT < 150 kg, CrCl > 10-29 mL/min) *Enoxaparin/Lovenox 30 mg SQ BID (WT < 150 kg, CrCl > 30 mL/min) AND *Sequential Compression Device (SCD) <Stefany Momin - 07/12/18 13:15> Assessment and Plan - Assessment (1) Cerebrovascular accident (CVA) Code(s): I63.9 - Cerebral infarction, unspecified Status: Acute (2) UTI (urinary tract infection) Code(s): N39.0 - Urinary tract infection, site not specified Status: Acute (3) Hypertension Code(s): I10 - Essential (primary) hypertension Status: Acute (4) GERD (gastroesophageal reflux disease) Code(s): K21.9 - Gastro-esophageal reflux disease without esophagitis Status: Acute (5) Neuropathy Code(s): G62.9 - Polyneuropathy, unspecified Status: Acute (6) Hypothyroid Code(s): E03.9 - Hypothyroidism, unspecified Status: Acute (7) Atrial fibrillation Code(s): I48.91 - Unspecified atrial fibrillation Status: Acute (8) History of alcohol abuse Code(s): Z87.898 - Personal history of other specified conditions Status: Acute (9) Nutrition, metabolism, and development symptoms Code(s): R63.8 - Other symptoms and signs concerning food and fluid intake Status: Acute <PedroMontez Edmunod - 07/12/18 16:31> (1) Cerebrovascular accident (CVA) Code(s): I63.9 - Cerebral infarction, unspecified Status: Acute Plan: ED physician spoke with Dr. Broderick in radiology who reports that initial head CT could be indicative of subacute infarct of the right occipital cortex. MR shows multiple foci of acute infarct in the bilateral cerebellar hemispheres, bilateral parieto-occipital cortices and right occipital lobe. With questionable blooming artifact in the right occipital infarct which could represent hemorrhage. -Neurology consulted, Dr. Castillo. Appreciate recommendations -Carotid ultrasound, lipid panel, echocardiogram, aPTT, INR ordered -We will hold heparin for DVT prophylaxis for now as patient has questionable hemorrhagic conversion -PT and OT consulted -Passed bedside swallow study -Aspirin 81 mg p.o. daily (2) UTI (urinary tract infection) Code(s): N39.0 - Urinary tract infection, site not specified Status: Acute Plan: Urine positive for moderate blood, large leukocyte Estrace, high white blood cells. Patient is asymptomatic -Bactrim double strength twice daily 3 days -Continue oral hydration (3) Hypertension Code(s): I10 - Essential (primary) hypertension Status: Acute Plan: Permissive hypertension as patient is less than 24 hours outside of stroke -Maintain systolic blood pressure less than 220 and diastolic less than 110 -Continue home Lasix 20 mg daily and metoprolol 12.5 mg daily -Continue to monitor for signs of increased vision change, headaches, increasing blood pressure (4) GERD (gastroesophageal reflux disease) Code(s): K21.9 - Gastro-esophageal reflux disease without esophagitis Status: Acute Plan: Continue home Protonix 40mg daily (5) Neuropathy Code(s): G62.9 - Polyneuropathy, unspecified Status: Acute Plan: Continue home gabapentin (6) Hypothyroid Code(s): E03.9 - Hypothyroidism, unspecified Status: Acute Plan: -TSH level ordered -Continue home levothyroxine (7) Atrial fibrillation Code(s): I48.91 - Unspecified atrial fibrillation Status: Acute Plan: She is not on any anticoagulation at home at this time for unknown reasons -Continuous telemetry -Continue home metoprolol -Echocardiogram ordered -TSH level ordered -We will start anticoagulation with neurology recommendations (8) History of alcohol abuse Code(s): Z87.898 - Personal history of other specified conditions Status: Acute Plan: Patient reports a remote history -[facility] Protocol -Oral thiamine and vitamin B complex replacement ordered (9) Nutrition, metabolism, and development symptoms Code(s): R63.8 - Other symptoms and signs concerning food and fluid intake Status: Acute Plan: Diet: Cardiac diet Fluids: P.o. for now Electrolytes: Vitamin B complex repleted orally, replete electrolytes as needed DVT prophylaxis: SCDs for now <Stefany Momin - 07/12/18 12:35> - Assessment and Plan Discussed Condition With: Bobby Vasquez and Kasia <Stefany Momin E - 07/12/18 13:15> - Attending Attestation The exam, history, and the medical decision-making described in the above note were completed with the assistance of the resident physician. I reviewed and agree with the findings presented. I attest that I had a [id number] encounter with the patient on the same day, and personally performed and documented my assessment and findings in the medical record. Evaluated patient independent of residents. Patient is resting in bed. She presented with waking up confused and disoriented and with acute visual changes , including double vision and things "looking messed up". She has interval improvement in her symptoms, especially the confusion and disorientation, but she still has persistent visual changes, having difficulty making up objects in her left field of vision. She has a history of atrial fibrillation and her anticoagulation was stopped some time back by her PCP in [place]. She is in atrial fibrillation during my examination, but without RVR at this time. On neurological exam, she has visual field defect in the left lower visual field. EOMI. normal upper and lower body strength and sensation. She has dysmetria during finger to nose testing, but this could be the result of visual changes, as she reports difficulty in seeing the target. She has no dysdiadochokinesis by my exam. I do not hear carotid bruits. Lungs are clear to auscultation. No heart murmur heard. In atrial fibrillation without RVR. Abdomen is benign. No lower extremity swelling. Discussed plan with patient and her daughter at bedside. Plan is to continue workup, especially ECHO tomorrow, have physical/ occupational therapy evaluate and make recommendations, and continue discharge planning. Neurology is on board. Low dose Xarelto started (has possible small hemorrhagic conversion on MRI so full dose contraindicated at this time), continue aspirin and statin therapy, control heart rate with oral metoprolol from home. Will need close follow up after discharge. <Montez Vasquez - 07/12/18 16:31>
[2018-07-12 14:08] LABS: Chol/HDL Ratio 2.04 Ratio; Folate 18.6 ng/mL (3.1-17.5); HDL Cholesterol 58.8 mg/dL (40.0-60.0); Thyroid Stimulating Hormone 0.847 uIU/mL (0.358-3.740)
--- NOTE | 2018-07-12 14:18 | ECG ---
Date Performed: 07/12/2018 Time Performed: 09:48:21 PTAGE: 73 years EKG: ATRIAL FIBRILLATION WITH ABERRANT CONDUCTION OR VENTRICULAR PREMATURE COMPLEXES MARKED LEFT AXIS DEVIATION POSSIBLE ANTERIOR MYOCARDIAL INFARCTION ABNORMAL ECG Since the PREVIOUS TRACING , no significant change noted PREVIOUS TRACIN11/29/2017 00.25 DOCTOR: Madison Lyn Interpretating Date/Time 07/12/2018 14:17:09
--- NOTE | 2018-07-12 14:51 | US ---
EXAM DATE: 07/12/2018 2:42 PM EDT AGE/SEX: 73 years / Female INDICATIONS: Cerebral vascular accident. CLINICAL DATA: This is the patient's initial encounter. Patient reports that signs and symptoms have been present for 1 day and indicates a pain score of 0/10. MEDICAL/SURGICAL HISTORY: . Atrial fibrillation. Osteoarthritis. Hypertension. Recurrent uri nary tract infections. Hypothyroid. Gastroesophageal reflux disease. Stomach abscess. . Total kne e replacement, bilateral. Abscess of the stomach I&D, 03/2018. Cataract removal. COMPARISON: No prior exams available for comparison. VELOCITY PARAMETERS: ICA/CCA Ratio: Right 0.9 , Left 0.7 ICA: Right 48 cm/sec, Left 33 cm/sec CCA: Right 53 cm/sec, Left 45 cm/sec ECA: Right 32 cm/sec, Left 35 cm/sec Vertebral: Right 32 cm/sec antegrade, Left 43 cm/sec antegrade FINDINGS: Right Carotid: No significant plaque is visualized.The waveforms are within normal limits. Left Carotid: No significant plaque is visualized. The waveforms are within normal limits. Other: None. CONCLUSION: 1. Right Internal Carotid Artery: No significant stenosis or atherosclerotic plaque is visualized. 2. Left Internal Carotid Artery: No significant stenosis or atherosclerotic plaque is visualized. Electronically signed by: Víctor Allan MD 07/12/2018 2:50 PM EDT
[2018-07-12 15:27] LABS: Activated Partial Thrombo Time 24.9 sec (24.3-30.1); INR 1.1 Ratio; Prothrombin Time 11.4 sec (9.8-11.6)
--- NOTE | 2018-07-12 15:33 | MR ---
EXAM DATE: 07/12/2018 3:22 PM EDT AGE/SEX: 73 years / Female INDICATIONS: Confusion. CLINICAL DATA: This is the patient's initial encounter. Patient reports that signs and symptoms have been present for 1 day and indicates a pain score of 0/10. MEDICAL/SURGICAL HISTORY: Hypertension. Tonsillectomy. Total knee replacement, left. Total kn ee replacement, right. [place] [facility] [place]. . TECHNIQUE: 3D [id number] MRA was performed. Source images, multiplanar STS MIP, and 3D volum e MIP reconstructions were reviewed. FINDINGS: There is excellent visualization of the major intracranial arteries out to the second-order branch ve ssels. There is no evidence for aneurysm or vessel truncation, and no evidence for vascular malforma tion. Is moderate to severe stenosis of the bilateral middle cerebral arteries and 1/2 junction on th e right and and 1 margin on the left. CONCLUSION: 1. Atherosclerotic changes are seen involving the middle cerebral arteries bilaterally. Electronically signed by: Víctor Allan MD 07/12/2018 3:32 PM EDT
[2018-07-12] MEDS: Insulin NovoLOG Aspart Correctional Sugar Inj SQ SCH ×2 (16:28→22:00)
[2018-07-12] MEDS: Gabapentin 100 MG Capsule PO SCH (20:24)
[2018-07-12] MEDS ORDERED: hydrALAZINE 10 MG Tablet PO SCH (23:15)
[2018-07-13] MEDS: Sod Chloride 0.9% Inj 1,000 ML IV.CONT SCH ×2 (04:32→12:29)
[2018-07-13] MEDS ORDERED: Rivaroxaban 10 MG Tablet PO SCH (09:00)
[2018-07-13] MEDS ORDERED: Furosemide 20 MG Tablet PO SCH (09:00)
[2018-07-13] MEDS ORDERED: Ferrous Sulfate 325 MG Tablet PO SCH (09:00)
[2018-07-13 09:05] LABS: Baso % (Auto) 0.7 % (0.0-2.0); Eos # (Auto) 0.1 th/mm3 (0.0-0.4); Eos % (Auto) 1.8 % (0.0-4.0); Hematocrit 34.9 % (35.0-46.0); Hemoglobin 11.7 gm/dL (11.6-15.3); Lymph # (Auto) 0.8 th/mm3 (1.0-4.8); Lymph % (Auto) 13.9 % (9.0-44.0); Mean Corpuscular HGB Conc 33.5 % (32.0-36.0); Mean Corpuscular Volume 104.4 fL (80.0-100.0); Mono # (Auto) 0.4 th/mm3 (0.0-0.9); Mono % (Auto) 6.1 % (0.0-8.0); Neut # (Auto) 4.6 th/mm3 (1.8-7.7); Neut % (Auto) 77.5 % (16.0-70.0); Platelet Count 166 th/mm3 (150-450); Red Blood Count 3.34 mil/mm3 (4.00-5.30); Red Cell Distribution Width 16.3 % (11.6-17.2); White Blood Count 5.9 th/mm3 (4.0-11.0)
[2018-07-13 09:11] LABS: Prothrombin Time 10.6 sec (9.8-11.6)
[2018-07-13] MEDS: Insulin NovoLOG Aspart Correctional Sugar Inj SQ SCH ×3 (09:26→16:12)
[2018-07-13 09:35] LABS: Calcium 8.8 mg/dL (8.5-10.1)
[2018-07-13 09:42] LABS: Potassium 2.8 meq/L (3.5-5.1)
[2018-07-13] MEDS ORDERED: Potassium Chloride 25 MEQ Effervescent Tablet PO ONE (10:00)
[2018-07-13] MEDS ORDERED: Potassium Chlor 20 mEq Premix 20 MEQ/100 ML PIGGYBACK IV.SIG ONE (10:00)
[2018-07-13] MEDS: Metoprolol Tartrate 25 MG Tablet PO SCH (10:26)
[2018-07-13] MEDS: Gabapentin 100 MG Capsule PO SCH (10:26)
[2018-07-13] MEDS: Vitamin B Complex/Vit C/Folic Tablet PO SCH (10:27)
--- NOTE | 2018-07-13 11:50 | P.PNFP ---
Subjective Interval history: Ms Andrade was seen on rounds this morning. Overnight team reports That she was increasingly agitated with CIWA scoring of greater than 6 multiple times. She was only given 0.1 mg of Ativan, restraints were placed despite resident only ordering bedrails. This morning she is calm on exam. Her sister is at bedside and reports that this happened to Ms. Andrade last time she was in the hospital. She does believe that she has some evidence of sundowning which is why Ms. Andrade has moved from [place] to live with her sister. Ms. Andrade reports that her vision is much improved and she is able to make out faces. She does not believe her eyes deviating as much as it was previously. She denies any chest pain, nausea, vomiting, lightheadedness, dizziness. <Stefany Momin E - 07/13/18 11:50> Results - Labs Result diagrams: 07/13/18 07:35 07/13/18 12:30 <Montez Vasquez L - 07/13/18 15:15> Abnormal lab results 07/12/18 07/13/18 07/13/18 Range/Units 09:31 07:35 07:35 RBC 3.34 L (4.00-5.30) mil/mm3 Hct 34.9 L (35.0-46.0) % MCV 104.4 H (80.0-100.0) fL MCH 35.0 H (27.0-34.0) pg Neut % (Auto) 77.5 H (16.0-70.0) % Lymph # (Auto) 0.8 L (1.0-4.8) th/mm3 Potassium 2.8 L* D (3.5-5.1) meq/L Carbon Dioxide (21.0-32.0) meq/L Estimated GFR 71 L (>89) mL/min Urine Clarity Turbid H (Clear) Urine Protein 30 H (Neg-Trace) mg/dL Urine Occult Blood Moderate H (Negative) Ur Leukocyte Esterase Large H (Negative) Urine RBC 30 H (0-3) /hpf Urine WBC 66 H (0-5) /hpf Urine Bacteria Many H (None) /hpf Urine Mucus Few H (Occasional) /lpf 07/13/18 Range/Units 12:30 RBC (4.00-5.30) mil/mm3 Hct (35.0-46.0) % MCV (80.0-100.0) fL MCH (27.0-34.0) pg Neut % (Auto) (16.0-70.0) % Lymph # (Auto) (1.0-4.8) th/mm3 Potassium (3.5-5.1) meq/L Carbon Dioxide 20.9 L (21.0-32.0) meq/L Estimated GFR 76 L (>89) mL/min Urine Clarity (Clear) Urine Protein (Neg-Trace) mg/dL Urine Occult Blood (Negative) Ur Leukocyte Esterase (Negative) Urine RBC (0-3) /hpf Urine WBC (0-5) /hpf Urine Bacteria (None) /hpf Urine Mucus (Occasional) /lpf Short CBC 07/13/18 Range/Units 07:35 WBC 5.9 (4.0-11.0) th/mm3 Hgb 11.7 (11.6-15.3) gm/dL Hct 34.9 L (35.0-46.0) % Plt Count 166 (150-450) th/mm3 BMP 07/13/18 07/13/18 07:35 12:30 Sodium 141 138 Potassium 2.8 L* D 4.0 D Chloride 106 106 Carbon Dioxide 28.0 20.9 L BUN 14 12 Creatinine 0.79 0.75 Calcium 8.8 8.6 Urine 07/12/18 Range/Units 09:31 Urine Color Anette (Yellw/Straw) Urine Clarity Turbid H (Clear) Urine pH 6.0 (5.0-8.5) Ur Specific [place] 1.010 (1.002-1.035) Urine Protein 30 H (Neg-Trace) mg/dL Urine Glucose (UA) Negative (Negative) mg/dL <Montez Vasquez L - 07/13/18 15:15> Abnormal lab results 07/12/18 07/13/18 07/13/18 Range/Units 09:30 07:35 07:35 RBC 3.34 L (4.00-5.30) mil/mm3 Hct 34.9 L (35.0-46.0) % MCV 104.4 H (80.0-100.0) fL MCH 35.0 H (27.0-34.0) pg Neut % (Auto) 77.5 H (16.0-70.0) % Lymph # (Auto) 0.8 L (1.0-4.8) th/mm3 Potassium 2.8 L* D (3.5-5.1) meq/L Estimated GFR 71 L (>89) mL/min Folate 18.6 H (3.1-17.5) ng/mL Short CBC 07/13/18 Range/Units 07:35 WBC 5.9 (4.0-11.0) th/mm3 Hgb 11.7 (11.6-15.3) gm/dL Hct 34.9 L (35.0-46.0) % Plt Count 166 (150-450) th/mm3 BMP 07/13/18 07:35 Sodium 141 Potassium 2.8 L* D Chloride 106 Carbon Dioxide 28.0 BUN 14 Creatinine 0.79 Calcium 8.8 <Stefany Momin - 07/13/18 11:50> - Imaging Impressions Head MRA 07/12/18 12:46 CONCLUSION: 1. Atherosclerotic changes are seen involving the middle cerebral arteries bilaterally. <Montez Vasquez - 07/13/18 15:15> Impressions Carotid Doppler Study 07/12/18 00:00 CONCLUSION: 1. Right Internal Carotid Artery: No significant stenosis or atherosclerotic plaque is visualized. 2. Left Internal Carotid Artery: No significant stenosis or atherosclerotic plaque is visualized. Head MRI 07/12/18 11:11 CONCLUSION: 1. Multiple foci of acute infarction are noted as above. Head MRA 07/12/18 12:46 CONCLUSION: 1. Atherosclerotic changes are seen involving the middle cerebral arteries bilaterally. <Stefany Momin - 07/13/18 11:50> Physical Exam Vital signs: Vital Signs 07/12/18 16:00 07/12/18 20:00 07/12/18 21:00 Temperature 98.1 F 98.0 F Pulse Rate 83 93 H 101 H Respiratory Rate 16 20 Blood Pressure 158/82 H 174/124 H 179/116 H Pulse Oximetry 96 93 L 91 L 07/12/18 22:00 07/12/18 23:00 07/13/18 00:00 Temperature 97.7 F Pulse Rate 105 H 104 H 101 H Respiratory Rate 20 Blood Pressure 178/139 H 171/100 H 180/101 H Pulse Oximetry 96 96 97 07/13/18 00:30 07/13/18 01:00 07/13/18 03:54 Temperature Pulse Rate 110 H 101 H Respiratory Rate Blood Pressure 175/101 H 176/95 H Pulse Oximetry 96 96 97 07/13/18 05:15 07/13/18 05:32 07/13/18 08:00 Temperature 98.5 F Pulse Rate 135 H 130 H 91 H Respiratory Rate 20 Blood Pressure 195/102 H 181/99 H 179/108 H Pulse Oximetry 96 97 95 07/13/18 11:11 07/13/18 11:59 07/13/18 12:00 Temperature 97.6 F 98.3 F Pulse Rate 97 H 80 Respiratory Rate 20 20 Blood Pressure 160/91 H 169/106 H Pulse Oximetry 97 99 96 Intake & Output 07/12/18 07/13/18 07/13/18 18:59 06:59 18:59 Intake Total 1580 / 1580 Balance 1580 / 1580 Weight 79.379 kg 80.1 kg Intake: IV 1000 / 1000 NS Inj 1,000 ML @ 120 mls/hr IV 1000 / 1000 .CONT .Q8H20M [facility] Rx#:[id number] Oral 580 / 580 Other: # Voids 3 Date of Last Bowel Movement 07/12/18 07/12/18 # Bowel Movements 1 <Montez Vasquez L - 07/13/18 15:15> Vital Signs 07/12/18 12:04 07/12/18 12:05 07/12/18 12:47 Temperature 97.9 F Pulse Rate 80 78 Respiratory Rate 16 Blood Pressure 180/83 H Pulse Oximetry 97 98 07/12/18 16:00 07/12/18 20:00 07/12/18 21:00 Temperature 98.1 F 98.0 F Pulse Rate 83 93 H 101 H Respiratory Rate 16 20 Blood Pressure 158/82 H 174/124 H 179/116 H Pulse Oximetry 96 93 L 91 L 07/12/18 22:00 07/12/18 23:00 07/13/18 00:00 Temperature 97.7 F Pulse Rate 105 H 104 H 101 H Respiratory Rate 20 Blood Pressure 178/139 H 171/100 H 180/101 H Pulse Oximetry 96 96 97 07/13/18 00:30 07/13/18 01:00 07/13/18 03:54 Temperature Pulse Rate 110 H 101 H Respiratory Rate Blood Pressure 175/101 H 176/95 H Pulse Oximetry 96 96 97 07/13/18 05:15 07/13/18 05:32 07/13/18 08:00 Temperature 98.5 F Pulse Rate 135 H 130 H 91 H Respiratory Rate 20 Blood Pressure 195/102 H 181/99 H 179/108 H Pulse Oximetry 96 97 95 07/13/18 11:11 Temperature 97.6 F Pulse Rate 97 H Respiratory Rate 20 Blood Pressure 160/91 H Pulse Oximetry 97 Intake & Output 07/12/18 07/13/18 07/13/18 18:59 06:59 18:59 Intake Total 1580 / 1580 Balance 1580 / 1580 Weight 79.379 kg 80.1 kg Intake: IV 1000 / 1000 NS Inj 1,000 ML @ 120 mls/hr IV 1000 / 1000 .CONT .Q8H20M [facility] Rx#:[id number] Oral 580 / 580 Other: # Voids 3 Date of Last Bowel Movement 07/12/18 # Bowel Movements 1 <Stefany Momin - 07/13/18 11:50> Narrative: Narrative: GENERAL: Well-developed female lying in bed resting comfortably. EYES: Right eye no longer deviated laterally. Pupils equal and round, reactive to light and accommodation. No scleral icterus. No injection or drainage. CARDIOVASCULAR: Irregularly irregular rate and rhythm. RESPIRATORY: No accessory muscle use. Clear to auscultation. Breath sounds equal bilaterally. GASTROINTESTINAL: Abdomen soft, non-tender, nondistended. MUSCULOSKELETAL: Extremities without clubbing, cyanosis, or edema. No obvious deformities. NEUROLOGICAL: Awake and alert. Ocular motion intact. No ptosis noted. Facial sensation and movement normal. Palate and uvula elevate symmetrically. Speech normal. Left lower field vision improved from yesterday's exam. Patient moves all extremities. Strength 5 out of 5 in upper and lower extremity. PSYCHIATRIC: Appropriate mood and affect; insight and judgment normal. <Stefany Momin - 07/13/18 11:50> Assessment and Plan - Assessment (1) Cerebrovascular accident (CVA) Code(s): I63.9 - Cerebral infarction, unspecified Status: Acute (2) UTI (urinary tract infection) Code(s): N39.0 - Urinary tract infection, site not specified Status: Acute (3) Hypokalemia Code(s): E87.6 - Hypokalemia Status: Acute (4) Hypertension Code(s): I10 - Essential (primary) hypertension Status: Acute (5) GERD (gastroesophageal reflux disease) Code(s): K21.9 - Gastro-esophageal reflux disease without esophagitis Status: Acute (6) Neuropathy Code(s): G62.9 - Polyneuropathy, unspecified Status: Acute (7) Hypothyroid Code(s): E03.9 - Hypothyroidism, unspecified Status: Acute (8) Atrial fibrillation Code(s): I48.91 - Unspecified atrial fibrillation Status: Acute (9) History of alcohol abuse Code(s): Z87.898 - Personal history of other specified conditions Status: Acute (10) Nutrition, metabolism, and development symptoms Code(s): R63.8 - Other symptoms and signs concerning food and fluid intake Status: Acute <Montez Vasquez - 07/13/18 15:15> (1) Cerebrovascular accident (CVA) Code(s): I63.9 - Cerebral infarction, unspecified Status: Acute Plan: ED physician spoke with Dr. Broderick in radiology who reports that initial head CT could be indicative of subacute infarct of the right occipital cortex. MR shows multiple foci of acute infarct in the bilateral cerebellar hemispheres, bilateral parieto-occipital cortices and right occipital lobe. With questionable blooming artifact in the right occipital infarct which could represent hemorrhage. -Neurology consulted, Dr. Castillo. Recommend low-dose Xarelto and aspirin with repeat head CT in 1-2 weeks and possible transition to full strength Xarelto with DC of aspirin at that time -MRA showing atherosclerosis of the MCA territory. -Carotid ultrasound showed no significant stenosis. -Lipid panel and coagulation profile within normal limits -echocardiogram pending -We will hold heparin for DVT prophylaxis for now as patient has questionable hemorrhagic conversion -PT and OT consulted -Passed bedside swallow study -Aspirin 81 mg p.o. daily -Atorvastatin 80 mg daily (2) UTI (urinary tract infection) Code(s): N39.0 - Urinary tract infection, site not specified Status: Acute Plan: Urine positive for moderate blood, large leukocyte esterase high white blood cells. Patient is asymptomatic -Bactrim double strength twice daily 3 days -Continue oral hydration (3) Hypokalemia Code(s): E87.6 - Hypokalemia Status: Acute Plan: K 2.8 on BMP this a.m. from 3.6 yesterday. Patient's sister reports that this is a chronic issue and she did not receive her potassium replacement yesterday. -Oral potassium 25 mEq -IV potassium 20 mEq -Repeat BMP after administration -Increase patient's home potassium supplementation on discharge to 20 mEq ER once daily (4) Hypertension Code(s): I10 - Essential (primary) hypertension Status: Acute Plan: Permissive hypertension as patient is less than 24 hours outside of stroke -Maintain systolic blood pressure less than 220 and diastolic less than 110 -Continue home Lasix 20 mg daily and metoprolol 12.5 mg daily -Continue to monitor for signs of increased vision change, headaches, increasing blood pressure (5) GERD (gastroesophageal reflux disease) Code(s): K21.9 - Gastro-esophageal reflux disease without esophagitis Status: Acute Plan: Continue home Protonix 40mg daily (6) Neuropathy Code(s): G62.9 - Polyneuropathy, unspecified Status: Acute Plan: Continue home gabapentin (7) Hypothyroid Code(s): E03.9 - Hypothyroidism, unspecified Status: Acute Plan: -TSH level ordered -Continue home levothyroxine (8) Atrial fibrillation Code(s): I48.91 - Unspecified atrial fibrillation Status: Acute Plan: She is not on any anticoagulation at home at this time for unknown reasons -Continuous telemetry -Continue home metoprolol -Echocardiogram ordered -TSH level ordered -Low-dose Xarelto with repeat head CT in 1-2 weeks and questionable increase to full dosage (9) History of alcohol abuse Code(s): Z87.898 - Personal history of other specified conditions Status: Acute Plan: Patient reports a remote history -[facility] Protocol -Oral thiamine and vitamin B complex replacement ordered -Patient agitated overnight, nursing had to give Ativan once (10) Nutrition, metabolism, and development symptoms Code(s): R63.8 - Other symptoms and signs concerning food and fluid intake Status: Acute Plan: Diet: Cardiac diet Fluids: P.o. for now Electrolytes: Vitamin B complex repleted orally, replete electrolytes as needed. Repleted potassium IV n.p.o. continue to monitor DVT prophylaxis: SCDs for now <Stefany Momin - 07/13/18 11:34> - Assessment and Plan Discussed Condition With: Bobby Cottrell and Pedro <Stefany Momin - 07/13/18 11:50> Discharge Planning: Possibly Today Pending Neuro Recommendations <Stefany Momin - 07/13/18 11:50> - Attending Attestation The exam, history, and the medical decision-making described in the above note were completed with the assistance of the resident physician. I reviewed and agree with the findings presented. I attest that I had a [id number] encounter with the patient on the same day, and personally performed and documented my assessment and findings in the medical record. Patient seen and examined on rounds with resident team this morning. Reports improving vision. No strength/sensation deficits on exam. Has cerebellar findings with dysmetria. Vision not 100% back to normal. Still seeing double vision when looking to the left. Able to make out faces and numbers on the clock this morning. Some agitation overnight, alcohol withdrawal versus sundowning, more likely sundowning as this is not new per sister. Discussed discharge plan at length, including metoprolol for a-fib rate control, low dose Xarelto for anticoagulation with plan for full dose if CT scan in 1 to 2 weeks is normal, aspirin until Xarelto is full dose, high dose statin, close follow up with neurologist and primary care physician. <Montez Vasquez - 07/13/18 15:15>
[2018-07-13 12:27] LABS: Hemoglobin A1c 5.2 % (4.3-6.0)
--- NOTE | 2018-07-13 12:35 | P.DS ---
Date of admission: 07/12/18 11:22 Primary care physician: UNKNOWN Brief History from admission: Ms Andrade is a 73-year-old female with past medical history of A. kaya who is presenting for evaluation of confusion this morning. She reports that last night prior to going to bed she was then her normal state of health, no symptoms at that time. This morning she woke up and she was unsure where she was, when it was. Her sister had to reorient her. She was unable to make out faces when looking directly at someone and was having double vision. her sister also reports that the patient's eyes were not "in sync" with 1 deviated out to the side. Her symptoms are slightly improved since admission to the ED. she denies weakness, dizziness, slurred speech, facial droop, chest pain, headache, history of strokes or TIAs, history of MA, histor of DVT or PE. She does report a similar episode last Saturday during travel down from [place]. She woke up in her hotel room and was very confused, sister reorientate her says that the episode lasted less than an hour. At that time she was not having any vision changes. Family medical history significant for strokes in the mother. she is not currently on anticoagulation because her doctor in [place] took her off of it she is unable to tell us why. PMH: A. fib Osteoarthritis Hypertension Recurrent UTIs Hypothyroid GERD H/o stomach abscess Meds: Levothyroxine Lasix Gabapentin Metoprolol Pantoprazole Potassium chloride Sx: Total knee replacement, bilateral Abscess of the stomach I&D, March 2018 Cataract removal FMH: Mother: Strokes Father: Hypertension, leukemia Social: Tobacco- never smoker EtOH-currently 2 drinks per day. Patient reports previous heavy use after the of her . Recreational drugs- none DS: Diagnosis - Discharge Diagnosis (1) Cerebrovascular accident (CVA) Status: Acute (2) UTI (urinary tract infection) Status: Acute (3) Hypokalemia Status: Acute (4) Hypertension Status: Acute (5) GERD (gastroesophageal reflux disease) Status: Acute (6) Neuropathy Status: Acute (7) Hypothyroid Status: Acute (8) Atrial fibrillation Status: Acute (9) History of alcohol abuse Status: Acute (10) Nutrition, metabolism, and development symptoms Status: Acute DS: Medications - Discharge Medications Prescriptions: atorvastatin 80 mg PO DAILY #30 tab potassium chloride 20 meq PO DAILY 30 Days #30 tab rivaroxaban [Xarelto] 10 mg PO DAILY #14 tab sulfamethoxazole-trimethoprim 1 tab PO Q12HR 1 Days #2 tab DS: Summary Hospital Course: Ms. Andrade is a 73-year-old female with past medical history of A. fib who was admitted on 07/12 for confusion and diplopia. At the time she was not on any anticoagulation. On admission she was noted to have UTI as well. Head CT did not show any hemorrhagic injury. Head MRI showed multiple foci of acute infarction with questionable blooming artifact that could be a small amount of hemorrhage in the right occipital area. Head MRA showed atherosclerotic changes in the MCA territories bilaterally. Carotid Doppler studies did not show any significant stenosis. Neurology recommended aspirin and low-dose Xarelto therapy. Repeat head CT in 1-2 weeks with consideration for increasing to full strength Xarelto and DC the aspirin at that time. - Time Spent with Patient Total time spent providing and/or coordinating discharge services: Less than 30 minutes Exam Vital signs: Vital Signs 07/12/18 12:47 07/12/18 16:00 07/12/18 20:00 Temperature 97.9 F 98.1 F 98.0 F Pulse Rate 78 83 93 H Respiratory Rate 16 16 20 Blood Pressure 180/83 H 158/82 H 174/124 H Pulse Oximetry 98 96 93 L 07/12/18 21:00 07/12/18 22:00 07/12/18 23:00 Temperature Pulse Rate 101 H 105 H 104 H Respiratory Rate Blood Pressure 179/116 H 178/139 H 171/100 H Pulse Oximetry 91 L 96 96 07/13/18 00:00 07/13/18 00:30 07/13/18 01:00 Temperature 97.7 F Pulse Rate 101 H 110 H 101 H Respiratory Rate 20 Blood Pressure 180/101 H 175/101 H 176/95 H Pulse Oximetry 97 96 96 07/13/18 03:54 07/13/18 05:15 07/13/18 05:32 Temperature Pulse Rate 135 H 130 H Respiratory Rate Blood Pressure 195/102 H 181/99 H Pulse Oximetry 97 96 97 07/13/18 08:00 07/13/18 11:11 07/13/18 11:59 Temperature 98.5 F 97.6 F Pulse Rate 91 H 97 H Respiratory Rate 20 20 Blood Pressure 179/108 H 160/91 H Pulse Oximetry 95 97 99 Intake & Output 07/12/18 07/13/18 07/13/18 18:59 06:59 18:59 Intake Total 1580 / 1580 Balance 1580 / 1580 Weight 79.379 kg 80.1 kg Intake: IV 1000 / 1000 NS Inj 1,000 ML @ 120 mls/hr IV 1000 / 1000 .CONT .Q8H20M [facility] Rx#:[id number] Oral 580 / 580 Other: # Voids 3 Date of Last Bowel Movement 07/12/18 # Bowel Movements 1 Results Procedures completed during hospitalization: None Labs on day of discharge: Labs from last 24 hours 07/13/18 07/13/18 07/13/18 11:34 07:35 07:35 WBC RBC Hgb Hct MCV MCH MCHC RDW Plt Count MPV Neut % (Auto) Lymph % (Auto) [place] % (Auto) Eos % (Auto) Baso % (Auto) Neut # (Auto) Lymph # (Auto) [place] # (Auto) Eos # (Auto) Baso # (Auto) WBC Differential Differential Comment PT 10.6 INR 1.0 APTT Sodium 141 Potassium 2.8 L* D Chloride 106 Carbon Dioxide 28.0 Anion Gap 7 BUN 14 Creatinine 0.79 Estimated GFR 71 L POC Glucose 90 Random Glucose 77 Hemoglobin A1c Calcium 8.8 Triglycerides Cholesterol LDL Cholesterol, Calc HDL Cholesterol Cholesterol/HDL Ratio Vitamin B12 Folate TSH 07/13/18 07/13/18 07/12/18 07:35 07:35 20:25 WBC 5.9 RBC 3.34 L Hgb 11.7 Hct 34.9 L MCV 104.4 H MCH 35.0 H MCHC 33.5 RDW 16.3 Plt Count 166 MPV 9.0 Neut % (Auto) 77.5 H Lymph % (Auto) 13.9 [place] % (Auto) 6.1 Eos % (Auto) 1.8 Baso % (Auto) 0.7 Neut # (Auto) 4.6 Lymph # (Auto) 0.8 L [place] # (Auto) 0.4 Eos # (Auto) 0.1 Baso # (Auto) 0.0 WBC Differential . Differential Comment Auto diff final PT INR APTT Sodium Potassium Chloride Carbon Dioxide Anion Gap BUN Creatinine Estimated GFR POC Glucose 99 Random Glucose Hemoglobin A1c Pending Calcium Triglycerides Cholesterol LDL Cholesterol, Calc HDL Cholesterol Cholesterol/HDL Ratio Vitamin B12 Folate TSH 07/12/18 07/12/18 07/12/18 15:53 14:31 12:30 WBC RBC Hgb Hct MCV MCH MCHC RDW Plt Count MPV Neut % (Auto) Lymph % (Auto) [place] % (Auto) Eos % (Auto) Baso % (Auto) Neut # (Auto) Lymph # (Auto) [place] # (Auto) Eos # (Auto) Baso # (Auto) WBC Differential Differential Comment PT 11.4 INR 1.1 APTT 24.9 Sodium Potassium Chloride Carbon Dioxide Anion Gap BUN Creatinine Estimated GFR POC Glucose 85 Random Glucose Hemoglobin A1c Calcium Triglycerides Cancelled Cholesterol Cancelled LDL Cholesterol, Calc Cancelled HDL Cholesterol Cancelled Cholesterol/HDL Ratio Cancelled Vitamin B12 Folate TSH 07/12/18 07/12/18 12:30 09:30 WBC RBC Hgb Hct MCV MCH MCHC RDW Plt Count MPV Neut % (Auto) Lymph % (Auto) [place] % (Auto) Eos % (Auto) Baso % (Auto) Neut # (Auto) Lymph # (Auto) [place] # (Auto) Eos # (Auto) Baso # (Auto) WBC Differential Differential Comment PT INR APTT Sodium Potassium Chloride Carbon Dioxide Anion Gap BUN Creatinine Estimated GFR POC Glucose Random Glucose Hemoglobin A1c Calcium Triglycerides 62 Cholesterol 120 LDL Cholesterol, Calc 49 HDL Cholesterol 58.8 Cholesterol/HDL Ratio 2.04 Vitamin B12 279 Folate 18.6 H TSH Cancelled 0.847 - Impressions ITS Impressions Carotid Doppler Study 07/12/18 00:00 CONCLUSION: 1. Right Internal Carotid Artery: No significant stenosis or atherosclerotic plaque is visualized. 2. Left Internal Carotid Artery: No significant stenosis or atherosclerotic plaque is visualized. Chest X-Ray 07/12/18 09:26 CONCLUSION: Cardiomegaly without congestive failure. Head CT 07/12/18 09:26 CONCLUSION: Atrophy, otherwise negative for an acute process. Sami Broderick MD FACR . Head MRI 07/12/18 11:11 CONCLUSION: 1. Multiple foci of acute infarction are noted as above. Head MRA 07/12/18 12:46 CONCLUSION: 1. Atherosclerotic changes are seen involving the middle cerebral arteries bilaterally. Discharge Plan - Discharge Disposition Patient Disposition: 01 Discharge Home - Discharge Condition Condition: Stable - Physicians Team Primary Care Provider: UNKNOWN, Attending Provider: Montez Vasquez Other Providers: Km Castillo MD ; Ander Nielson MD
[2018-07-13 13:14] LABS: Calcium 8.6 mg/dL (8.5-10.1); Carbon Dioxide 20.9 meq/L (21.0-32.0)
--- NOTE | 2018-07-13 13:24 | P.PNNEU ---
Subjective Subjective Comments: no cp, no dyspnea, no rascon, no focal weakness, feels her vision is improved; complains of insomnia wants hypnotic Active Medications: Active Medications Aspirin (Aspirin Chew) 81 mg PO DAILY [facility] Last Admin: 07/13/18 10:26 Dose: 81 mg Dextrose (D50w Vial) 50 ml IV.PUSH UNSCH PRN PRN Reason: PER HYPOGLYCEMIA PROTOCOL Ferrous Sulfate (Ferosul) 325 mg PO DAILY [facility] Last Admin: 07/13/18 10:26 Dose: 325 mg Flumazenil (Romazecon Inj) 0.2 mg IV.PUSH Q1M PRN PRN Reason: OVERSEDATION Furosemide (Lasix) 20 mg PO DAILY [facility] Last Admin: 07/13/18 10:26 Dose: 20 mg Gabapentin (Neurontin) 100 mg PO BID [facility] Last Admin: 07/13/18 10:26 Dose: 100 mg Glucagon (Glucagon Inj) 1 mg OTHER UNSCH PRN PRN Reason: for Hypoglycemia Protocol Haloperidol Lactate (Haldol Inj) 1 mg IV.PUSH Q15M PRN PRN Reason: for severe agitation Sodium Chloride (Ns Inj) 1,000 mls @ 120 mls/hr IV.CONT .Q8H20M [facility] Last Admin: 07/13/18 12:29 Dose: Not Given Insulin Aspart (Novolog Insulin Correctional Sugar Inj) 0 unit SQ ACHS [facility]; Protocol Last Admin: 07/13/18 11:51 Dose: Not Given Levothyroxine Sodium (Synthroid) 200 mcg PO DAILY@0600 [facility] Last Admin: 07/13/18 07:39 Dose: Not Given Lorazepam (Ativan) 1 mg PO Q4H PRN PRN Reason: for CIWA 8-10 Lorazepam (Ativan) 2 mg PO Q2H PRN PRN Reason: for CIWA 11-14 Lorazepam (Ativan Inj) 2 mg IV.PUSH Q2H PRN PRN Reason: for CIWA 11-14 Lorazepam (Ativan Inj) 2 mg IV.PUSH Q1H PRN PRN Reason: for CIWA 15-20 Lorazepam (Ativan Inj) 1 mg IV.PUSH Q4H PRN PRN Reason: for CIWA 8-10 Last Admin: 07/13/18 03:19 Dose: 1 mg Lorazepam (Ativan Inj) 2 mg IV.PUSH Q15M PRN PRN Reason: for CIWA > 20 Metoprolol Tartrate (Lopressor) 12.5 mg PO DAILY [facility] Last Admin: 07/13/18 10:26 Dose: 12.5 mg Pantoprazole Sodium (Protonix) 40 mg PO DAILY [facility] Last Admin: 07/13/18 10:25 Dose: 40 mg Potassium Chloride (Klor-Con 8) 8 meq PO DAILY [facility] Last Admin: 07/13/18 10:26 Dose: 8 meq Rivaroxaban (Xarelto) 10 mg PO DAILY [facility] Last Admin: 07/13/18 10:25 Dose: 10 mg Sodium Chloride (Ns Flush) 2 ml IV.FLUSH PRN PRN PRN Reason: FLUSH AFTER USING IV ACCESS Last Admin: 07/12/18 09:36 Dose: 2 ml Sodium Chloride (Ns Flush) 2 ml IV.FLUSH BID [facility] Last Admin: 07/13/18 10:27 Dose: Not Given Sodium Chloride (Ns Flush) 2 ml IV.FLUSH PRN PRN PRN Reason: FLUSH AFTER USING IV ACCESS Trimethoprim/Sulfamethoxazole (Bactrim Ds) 1 tab PO Q12HR [facility] Last Admin: 07/13/18 10:25 Dose: 1 tab Vitamin B Complex/Vit C/Folic Acid (Nephrocaps) 1 tab PO DAILY [facility] Last Admin: 07/13/18 10:27 Dose: 1 tab Allergies/Adverse Reactions: Allergies Allergy/AdvReac Type Severity Reaction Status Date / Time No Known Allergies Allergy Verified 07/12/18 09:10 Review of Systems All other systems reviewed negative except as stated in HPI Physical Exam Vital signs: Vital Signs 07/12/18 16:00 07/12/18 20:00 07/12/18 21:00 Temperature 98.1 F 98.0 F Pulse Rate 83 93 H 101 H Respiratory Rate 16 20 Blood Pressure 158/82 H 174/124 H 179/116 H Pulse Oximetry 96 93 L 91 L 07/12/18 22:00 07/12/18 23:00 07/13/18 00:00 Temperature 97.7 F Pulse Rate 105 H 104 H 101 H Respiratory Rate 20 Blood Pressure 178/139 H 171/100 H 180/101 H Pulse Oximetry 96 96 97 07/13/18 00:30 07/13/18 01:00 07/13/18 03:54 Temperature Pulse Rate 110 H 101 H Respiratory Rate Blood Pressure 175/101 H 176/95 H Pulse Oximetry 96 96 97 07/13/18 05:15 07/13/18 05:32 07/13/18 08:00 Temperature 98.5 F Pulse Rate 135 H 130 H 91 H Respiratory Rate 20 Blood Pressure 195/102 H 181/99 H 179/108 H Pulse Oximetry 96 97 95 07/13/18 11:11 07/13/18 11:59 07/13/18 12:00 Temperature 97.6 F 98.3 F Pulse Rate 97 H 80 Respiratory Rate 20 20 Blood Pressure 160/91 H 169/106 H Pulse Oximetry 97 99 96 Intake & Output 07/12/18 07/13/18 07/13/18 18:59 06:59 18:59 Intake Total 1580 / 1580 Balance 1580 / 1580 Weight 79.379 kg 80.1 kg Intake: IV 1000 / 1000 NS Inj 1,000 ML @ 120 mls/hr IV 1000 / 1000 .CONT .Q8H20M [facility] Rx#:[id number] Oral 580 / 580 Other: # Voids 3 Date of Last Bowel Movement 07/12/18 07/12/18 # Bowel Movements 1 Narrative: GENERAL: in NAD, SKIN: Warm and dry. HEAD: Atraumatic. Normocephalic. EYES: Pupils equal and round. No scleral icterus. ENT: No nasal bleeding or discharge. Mucous membranes pink and moist. NECK: Trachea midline. No JVD. CARDIOVASCULAR: Irregularly irregular. RESPIRATORY: No accessory muscle use. Clear to auscultation. Breath sounds equal bilaterally. GASTROINTESTINAL: Abdomen soft, non-tender, nondistended. MUSCULOSKELETAL: Extremities without clubbing, cyanosis, or edema. No obvious deformities. NEUROLOGICAL: Awake and alert. Oriented 3 no aphasia, fluent articulate, No facial asymmetry, OU 3-2mm, eomi, mild curvilinear left homonymous hemianopsia improved from yesterday, No drift, Motor grossly within normal limits. Five out of 5 muscle strength in the arms and legs. Tone normal in all 4 limbs, stocking distribution reduced pinprick light touch, msr 1-2+ sym, no clonus, planterflexor, PSYCHIATRIC: Appropriate mood and affect; insight and judgment normal. - Constitutional no acute distress - Routine HEENT Exam Head: Present: normocephalic Objective Laboratory Results - last 24 hr 09/22/18 09/22/18 09/22/18 09:30 14:31 15:53 WBC RBC Hgb Hct MCV MCH MCHC RDW Plt Count MPV Neut % (Auto) Lymph % (Auto) Harmon % (Auto) Eos % (Auto) Baso % (Auto) Neut # (Auto) Lymph # (Auto) [place]on # (Auto) Eos # (Auto) Baso # (Auto) WBC Differential Differential Comment PT 11.4 INR 1.1 APTT 24.9 Sodium Potassium Chloride Carbon Dioxide Anion Gap BUN Creatinine Estimated GFR POC Glucose 85 Random Glucose Calcium Triglycerides 62 Cholesterol 120 LDL Cholesterol, Calc 49 HDL Cholesterol 58.8 Cholesterol/HDL Ratio 2.04 Vitamin B12 279 Folate 18.6 H TSH 0.847 07/12/18 07/13/18 07/13/18 20:25 07:35 07:35 WBC 5.9 RBC 3.34 L Hgb 11.7 Hct 34.9 L MCV 104.4 H MCH 35.0 H MCHC 33.5 RDW 16.3 Plt Count 166 MPV 9.0 Neut % (Auto) 77.5 H Lymph % (Auto) 13.9 Harmon % (Auto) 6.1 Eos % (Auto) 1.8 Baso % (Auto) 0.7 Neut # (Auto) 4.6 Lymph # (Auto) 0.8 L [place]on # (Auto) 0.4 Eos # (Auto) 0.1 Baso # (Auto) 0.0 WBC Differential . Differential Comment Auto diff final PT 10.6 INR 1.0 APTT Sodium Potassium Chloride Carbon Dioxide Anion Gap BUN Creatinine Estimated GFR POC Glucose 99 Random Glucose Calcium Triglycerides Cholesterol LDL Cholesterol, Calc HDL Cholesterol Cholesterol/HDL Ratio Vitamin B12 Folate TSH 07/13/18 07/13/18 07/13/18 07:35 11:34 12:30 WBC RBC Hgb Hct MCV MCH MCHC RDW Plt Count MPV Neut % (Auto) Lymph % (Auto) [place]on % (Auto) Eos % (Auto) Baso % (Auto) Neut # (Auto) Lymph # (Auto) [place]on # (Auto) Eos # (Auto) Baso # (Auto) WBC Differential Differential Comment PT INR APTT Sodium 141 138 Potassium 2.8 L* D 4.0 D Chloride 106 106 Carbon Dioxide 28.0 20.9 L Anion Gap 7 11 BUN 14 12 Creatinine 0.79 0.75 Estimated GFR 71 L 76 L POC Glucose 90 Random Glucose 77 97 Calcium 8.8 8.6 Triglycerides Cholesterol LDL Cholesterol, Calc HDL Cholesterol Cholesterol/HDL Ratio Vitamin B12 Folate TSH Microbiology 07/13/18 00:09 Stool Occult Blood (YOHANA) - Final Stool Hemoccult negative Review/Management - Diagnosis (1) Atrial fibrillation Code(s): I48.91 - Unspecified atrial fibrillation Status: Acute Current Visit: Yes (2) Hypertension Code(s): I10 - Essential (primary) hypertension Status: Acute Current Visit : Yes (3) Neuropathy Code(s): G62.9 - Polyneuropathy, unspecified Status: Acute Current Visit: Yes (4) Acute embolic stroke Code(s): I63.9 - Cerebral infarction, unspecified Status: Acute Current Visit: Yes - Review/Management Plan: Acute embolic strokes Posterior circulation Suspect cardioembolic from atrial fibrillation MRI brain no significant vaso-occlusive disease Recommendation Neuro improved vision improved. Tolerating medication 2D echo pending Aspirin and low-dose Xarelto; full strength 1-[address] brain scan performed negative for any hemorrhage and aspirin can be discontinued at the time Therapy Keep the patient in the hospital next 1-2 days to make sure she does not have any hemorrhagic transformation Discussed with patient and her daughter bedside
--- NOTE | 2018-07-13 15:59 | P.DCO ---
- Physical Therapy Order: Evaluate and treat, Improve ambulation, Strength and gait training - Case Management Consult No - Certification I have seen patient Lenora Andrade on 07/13/18. My clinical findings support the need for the requested home health care services because: Limited mobility due to disease progression, Deconditioned with increased weakness, Limited ability to care for self, High risk of falls I certify that my clinical findings support that this patient is homebound because: Unsteady gait/balance, Unsafe to leave home unassisted
--- NOTE | 2018-07-13 16:31 | ECHRPT ---
Indication: CVA/TIA, ATRIAL FIB/FLUTTER CONCLUSIONS Normal left ventricular size. Mild concentric left ventricular hypertrophy. The left ventricular systolic function is severely reduced with an estimated ejection fraction in th e range of 25-30%. The left atrial size is kchqhylb-fi-qhucznhp dilated. The right atrial size is moderately dilated. Moderate to severe mitral valve regurgitation. Aortic valve sclerosis is present. Trace aortic valve regurgitation. There is mild to moderate tricuspid valve regurgitation. The estimated pulmonary arterial pressure is 44.4 mmHg. There is less than 50% respiratory change in dimension of the inferior vena cava (abnormal). Trace pericardial effusion. Small pleural effusion. BP: / HR: Rhythm: Atrial fibrillation, Atrial flut ter MEASUREMENTS (Male / Female) Normal Values Technical Quality:Fair 2D ECHO LV Diastolic Diameter PLAX 5.4 cm 4.2 - 5.9 / 3.9 - 5.3 cm LV Systolic Diameter PLAX 4.8 cm IVS Diastolic Thickness 1.1 cm 0.6 - 1.0 / 0.6 - 0.9 cm LVPW Diastolic Thickness 1.1 cm 0.6 - 1.0 / 0.6 - 0.9 cm LV Relative Wall Thickness 0.4 RV Internal Dim ED PLAX 3.8 cm LVOT Diameter 2.0 cm Aortic Root Diameter 2.9 cm LA Systolic Diameter LX 5.4 cm 3.0 - 4.0 / 2.7 - 3.8 cm M-MODE AV Cusp Separation MM 1.3 cm DOPPLER AV Peak Velocity 211.3 cm/s AV Peak Gradient 17.9 mmHg AV Mean Gradient 10.0 mmHg AV Velocity Time Integral 36.4 cm LVOT Peak Velocity 101.4 cm/s LVOT Peak Gradient 4.1 mmHg LVOT Velocity Time Integral 15.5 cm AV Area Cont Eq vti 1.3 cm AV Area Cont Eq pk 1.5 cm Mitral E Point Velocity 82.7 cm/s LV E' Septal Velocity 8.5 cm/s Mitral E to LV E' Septal Ratio 9.8 TR Peak Velocity 293.3 cm/s TR Peak Gradient 34.4 mmHg Right Atrial Pressure 10.0 mmHg Pulmonary Artery Systolic Pressu 44.4 mmHg Right Ventricular Systolic Press 44.4 mmHg PV Peak Velocity 60.9 cm/s PV Peak Gradient 1.5 mmHg FINDINGS LEFT VENTRICLE Normal left ventricular size. Mild concentric left ventricular hypertrophy. The left ventricular systolic function is severely reduced with an estimated ejection fraction in th e range of 25-30%. RIGHT VENTRICLE Normal right ventricular size and systolic function. LEFT ATRIUM The left atrial size is opmkczth-we-fiqwvheb dilated. RIGHT ATRIUM The right atrial size is moderately dilated. ATRIAL SEPTUM The interatrial septum not well visualized. AORTA The aortic root and proximal ascending aorta are normal in size on limited imaging. MITRAL VALVE Moderate mitral valve regurgitation. AORTIC VALVE Aortic valve sclerosis is present. Trace aortic valve regurgitation. TRICUSPID VALVE There is mild to moderate tricuspid valve regurgitation. The estimated pulmonary arterial pressure is 44.4 mmHg. PULMONARY VALVE No pulmonary valve regurgitation or stenosis. VESSELS There is less than 50% respiratory change in dimension of the inferior vena cava (abnormal). PERICARDIUM Trace pericardial effusion. Small pleural effusion. Darrell Galvin MD, FACC, [facility] [place] (Electronically Signed) Final Date:13 July 2018 16:31
[2018-07-13 18:15] VITALS: BP 144/84; PULSE 77; RESP 16; TEMP 98.2; O2SAT 94
[2018-07-13] MEDS ORDERED: Temazepam 15 MG Capsule PO PRN (21:00)
== END 2018-07-13 18:27 | disposition home health service (06) ==
LOC: NEPE 08:41 → NEDA 11:22 → N05 12:55
PROVIDERS: ADMIT Family Medicine; ATTEND Family Medicine

== ENCOUNTER 2018-08-15 16:15 | Inpatient (IN) ==
[2018-08-15] MEDS ORDERED: Acetaminophen 325 MG Tablet PO ONE (20:42)
--- NOTE | 2018-08-15 21:02 | CT ---
EXAM DATE: 08/15/2018 8:53 PM EDT AGE/SEX: 73 years / Female INDICATIONS: Trauma; fall. Laceration on right forehead. CLINICAL DATA: This is the patient's initial encounter. Patient reports that signs and symptoms have been present for 1 day and indicates a pain score of 5/10. MEDICAL/SURGICAL HISTORY: Cerebrovascular disease. Tonsillectomy. Abdominal surgery RADIATION DOSE: 56.35 CTDI (mGy) COMPARISON: [facility] [place] HEAD W/O CONTRAST, 07/12/2018. . TECHNIQUE: CT of the head without contrast. Using automated exposure control and adjustment of the mA and/or kV according to patient size, radiation dose was kept as low as reasonably achievable to ob tain optimal diagnostic quality images. DICOM format image data is available electronically for revi ew and comparison. FINDINGS: Cerebrum: The ventricles are normal for age. Chronic changes with an old right occipital infarct and severe periventricular small vessel ischemic demyelination. In addition, there is a 7 to 8 mm right subdural hematoma with an approximate 4.5 to 5 mm of right to left subfalcine shift.. Posterior Fossa: Old right cerebellar infarct. Punctate lacunar type infarct in the left cerebellar hemisphere. The 4th ventricle is midline. The cerebellopontine angle is unremarkable. Extracranial: The visualized portion of the orbits is intact. Skull: Cephalohematoma over the lateral wall of the right orbit extending into the preseptal space. Globe is intact. The calvaria is intact. No evidence of skull fracture. CONCLUSION: 1. Patient has an acute 7.5 to 8 mm right subdural hematoma with an associated 4.5 to 5 mm right to left subfalcine shift. 2. Chronic changes with severe periventricular small vessel ischemic demyelination, old right occipi sera infarct, old right cerebellar infarct with a punctate small lacunar type infarct in the anterior aspect of the left cerebellar hemisphere. 3. Cephalohematoma projects over the lateral right orbital wall extending into the lateral preseptal space. The subjacent globe is intact. No associated fracture. . Electronically signed by: Bhanu Iraheta MD 08/15/2018 9:01 PM EDT
[2018-08-15] MEDS ORDERED: niCARdipine Inj 25 MG in Sodium Chlor 0.9% Inj 240 ML IV.CONT PRN (21:23)
--- NOTE | 2018-08-15 21:37 | ED ---
Procedures Laceration Laceration 1: Site: face Side (If applicable): right Size (cm): 1 Description: linear Depth: simple, single layer Pre-repair:: wound explored and irrigated extensively Skin layer closed with: dermabond
--- NOTE | 2018-08-15 21:44 | ED ---
HPI General Chief Complaint: Fall Stated Complaint: fall/hit head Time Seen by Provider: 08/15/18 20:21 Source: patient and family (Sister) Mode of arrival: ambulatory Limitations: no limitations History of Present Illness HPI Narrative: 73-year-old female came to the emergency room with history of trip and fall at 3:30 PM today. She was with her sister who is giving the history. Patient ambulates with a walker and her sister was putting the walker in the car when patient tripped on something and fell. She landed on her face on the right side and had a laceration near her right eyebrow. She was dazed for 2 minutes. However patient recalls the event. Her sister brought her to the emergency room since patient takes Xarelto for A. fib. She has been in the waiting room up until the point she came to the room and I saw her. Patient is currently awake and talking. She has been complaining of some headache and her sister gave her 1 g of Tylenol at 5 PM. The sister says that patient has history of frequent falls. But she also has history of recurrent strokes and hence she is on Xarelto as per her neurologist. She had received a tetanus shot a few months ago. While she was in the waiting room she has been applying ice pack on the swelling. complaint: Reports fall Onset (ago): hour(s) (5) Fall from: standing Fall witnessed: yes, by family Place fall occurred: street Loss of consciousness: yes Length of LOC: minutes(s) (2) Prolonged down time: no Symptoms prior to fall: Reports none Context: Reports tripped/slipped Location of injury: Reports head and face Severity: moderate Severity scale (1-10): 7 Quality: Reports aching and throbbing Associated symptoms (after fall): Reports headache Related Data Home Medications Medication Instructions Recorded Confirmed ferrous sulfate 325 mg PO DAILY 07/12/18 08/15/18 furosemide [Lasix] 20 mg PO DAILY 07/12/18 08/15/18 gabapentin 100 mg PO BID 07/12/18 08/15/18 levothyroxine [Synthroid] 200 mcg PO DAILY 07/12/18 08/15/18 metoprolol tartrate 12.5 mg PO DAILY 07/12/18 08/15/18 pantoprazole [Protonix] 40 mg PO DAILY 07/12/18 08/15/18 Previous Rx's Medication Instructions Recorded aspirin 81 mg PO DAILY tab 07/13/18 atorvastatin 80 mg PO DAILY #30 tab 07/13/18 Allergies Allergy/AdvReac Type Severity Reaction Status Date / Time No Known Allergies Allergy Verified 08/15/18 21:17 Review of Systems ROS: all other systems reviewed are negative Neurologic Reports headache(s) [facility] Medical History Medical History Afib (Acute) Arthritis (Acute) Hyperlipemia (Acute) Hypertension (Acute) Hyperthyroidism (Acute) Surgical History Surgical History Hx of abdominal surgery (Acute) Hx of knee surgery (Acute) Hx of tonsillectomy (Acute) Family History Family History Mother Rheumatoid arthritis Hypothyroid Stroke Father HTN (hypertension) Leukemia Other Patient's father is Patient's mother is Social History Social History Substance History: Past History Second Hand Smoke Exposure: No Smoking Status: Never smoker How Often Do You Have a Drink Containing Alcohol: 2 to 3 times a week Recent Travel in [facility] within the Last 8 Weeks: No Recent Out of Country Travel within the Last 8 Weeks: No Immunization History Tetanus Immunization: <5 Years Exam Narrative Exam Narrative: GENERAL: Awake, alert, elderly, mild distress SKIN: Focused skin assessment warm/dry. HEAD: 1 cm laceration on the temporal aspect near the right eyebrow. Clean edges. Bleeding controlled EYES: Pupils equal and round. No scleral icterus. No injection or drainage. ENT: No nasal bleeding or discharge. Mucous membranes pink and moist. NECK: Trachea midline. No JVD. CARDIOVASCULAR: Regular rate and rhythm. No murmur appreciated. RESPIRATORY: No accessory muscle use. Clear to auscultation. Breath sounds equal bilaterally. GASTROINTESTINAL: Abdomen soft, non-tender, nondistended. Hepatic and splenic margins not palpable. MUSCULOSKELETAL: No obvious deformities. No clubbing. No cyanosis. No edema. NEUROLOGICAL: Awake and alert. No obvious cranial nerve deficits. Motor grossly within normal limits. Normal speech. PSYCHIATRIC: Appropriate mood and affect; insight and judgment normal. Course Initial Documented Vital Signs Temperature 99.0 F 08/15/18 16:47 Pulse Rate 62 10/26/18 16:47 Respiratory Rate 14 08/15/18 16:47 Blood Pressure 142/92 H 08/15/18 16:47 Pulse Oximetry 96 08/15/18 16:47 Last Documented Vital Signs Temperature 97.6 F 08/18/18 04:00 Pulse Rate 82 08/18/18 05:00 Respiratory Rate 14 08/18/18 05:17 Blood Pressure 158/93 H 08/18/18 04:58 Pulse Oximetry 97 08/18/18 05:00 Critical Care Time Critical Care Time: Yes Total Critical Care Time: 30 Attestation: Aggregate critical care time was 30 minutes. Time to perform other separately billable procedures was not included in the critical care time. My time did not include minutes spent treating any other patients simultaneously or on activities that did not directly contribute to the patient's treatment. The services I provided to this patient were to treat and/or prevent clinically significant deterioration that could result in: Intracranial bleed, hypertensive crisis, Cardene drip I provided critical care services requiring my management, as noted below: Chart data review, documentation time, medication orders and management, vital sign assessments/reviewing monitor data, ordering and reviewing lab tests, ordering and interpreting/reviewing x-rays and diagnostic studies, care of the patient and discussion of the patient with the admitting physicians. Medical Decision Making MDM Narrative Medical decision making narrative: 9:42 PM case was discussed with Dr. Guallpa from neurosurgery. He agreed with the plan of admitting the patient to the intensive care unit. Since patient last took her Xarelto at 7 PM last night and she has high risk of stroke the decision was not to reverse the Xarelto. I had discussed with the sister and explained to her the risks and the benefits of starting Kcentra versus holding it. The sister understood. I discussed the case with Dr. Small from ICU who has accepted the patient. Patient has been started on Cardene drip given significant hypertension. Dr. Guallpa asked the patient to be started on 500 mg of Keppra. I answered the patient and her family's all the questions to the best of my ability. Medical Screen Exam Complete: Yes Emergency Medical Condition: Yes Lab Data Result diagrams: 08/16/18 03:34 08/17/18 04:55 Lab Results 10/26/18 10/26/18 10/26/18 Range/Units 23:01 23:01 23:05 WBC 7.6 (4.0-11.0) th/mm3 RBC 3.48 L (4.00-5.30) mil/mm3 Hgb 12.5 (11.6-15.3) gm/dL Hct 37.2 (35.0-46.0) % MCV 106.8 H (80.0-100.0) fL MCH 35.9 H (27.0-34.0) pg MCHC 33.6 (32.0-36.0) % RDW 15.9 (11.6-17.2) % Plt Count 125 L (150-450) th/mm3 MPV 9.4 (7.0-11.0) fL Prelim Diff (Auto) Slide review pending Neut % (Auto) (16.0-70.0) % Lymph % (Auto) (9.0-44.0) % [place] % (Auto) (0.0-8.0) % Eos % (Auto) (0.0-4.0) % Baso % (Auto) (0.0-2.0) % Neut # (Auto) (1.8-7.7) th/mm3 Lymph # (Auto) (1.0-4.8) th/mm3 [place] # (Auto) (0.0-0.9) th/mm3 Eos # (Auto) (0.0-0.4) th/mm3 Baso # (Auto) (0.0-0.2) th/mm3 WBC Differential Manual diff final Seg Neuts % (Manual) 78 H (16-70) % Band Neuts % (Manual) 1 (0-6) % Lymphocytes % (Manual) 13 (9-44) % Monocytes % (Manual) 7 (0-8) % Eosinophils % (Manual) 1 (0-4) % Abs Neuts (Manual) 6.0 (1.8-7.7) th/mm3 Differential Comment . Platelet Estimate Low L (Normal) Platelet Morphology Normal (Normal) Tear Drop Cells 1+ H (None) Ovalocytes 2+ H (None) PT 10.9 (9.8-11.6) sec INR 1.1 Ratio APTT 23.4 L (24.3-30.1) sec Sodium 141 (136-145) meq/L Potassium 3.9 (3.5-5.1) meq/L Chloride 107 (98-107) meq/L Carbon Dioxide 26.9 (21.0-32.0) meq/L Anion Gap 7 (5-15) meq/L BUN 15 (7-18) mg/dL Creatinine 0.69 (0.50-1.00) mg/dL Estimated GFR 83 L (>89) mL/min Random Glucose 85 (74-106) mg/dL Calcium 8.8 (8.5-10.1) mg/dL Nasal Screen MRSA (PCR) (Negative) 08/16/18 08/16/18 08/16/18 Range/Units 00:31 03:34 03:34 WBC 5.8 (4.0-11.0) th/mm3 RBC 3.34 L (4.00-5.30) mil/mm3 Hgb 12.2 (11.6-15.3) gm/dL Hct 35.0 (35.0-46.0) % MCV 104.8 H (80.0-100.0) fL MCH 36.4 H (27.0-34.0) pg MCHC 34.7 (32.0-36.0) % RDW 15.8 (11.6-17.2) % Plt Count 116 L (150-450) th/mm3 MPV 9.1 (7.0-11.0) fL Prelim Diff (Auto) Neut % (Auto) 77.1 H (16.0-70.0) % Lymph % (Auto) 12.8 (9.0-44.0) % [place] % (Auto) 7.3 (0.0-8.0) % Eos % (Auto) 2.3 (0.0-4.0) % Baso % (Auto) 0.5 (0.0-2.0) % Neut # (Auto) 4.4 (1.8-7.7) th/mm3 Lymph # (Auto) 0.7 L (1.0-4.8) th/mm3 [place] # (Auto) 0.4 (0.0-0.9) th/mm3 Eos # (Auto) 0.1 (0.0-0.4) th/mm3 Baso # (Auto) 0.0 (0.0-0.2) th/mm3 WBC Differential . Seg Neuts % (Manual) (16-70) % Band Neuts % (Manual) (0-6) % Lymphocytes % (Manual) (9-44) % Monocytes % (Manual) (0-8) % Eosinophils % (Manual) (0-4) % Abs Neuts (Manual) (1.8-7.7) th/mm3 Differential Comment Auto diff final Platelet Estimate (Normal) Platelet Morphology (Normal) Tear Drop Cells (None) Ovalocytes (None) PT (9.8-11.6) sec INR Ratio APTT (24.3-30.1) sec Sodium 144 (136-145) meq/L Potassium 3.2 L (3.5-5.1) meq/L Chloride 106 (98-107) meq/L Carbon Dioxide 29.5 (21.0-32.0) meq/L Anion Gap 9 (5-15) meq/L BUN 12 (7-18) mg/dL Creatinine 0.67 (0.50-1.00) mg/dL Estimated GFR 86 L (>89) mL/min Random Glucose 107 H (74-106) mg/dL Calcium 8.6 (8.5-10.1) mg/dL Nasal Screen MRSA (PCR) Mrsa detected (Negative) 08/17/18 Range/Units 04:55 WBC (4.0-11.0) th/mm3 RBC (4.00-5.30) mil/mm3 Hgb (11.6-15.3) gm/dL Hct (35.0-46.0) % MCV (80.0-100.0) fL MCH (27.0-34.0) pg MCHC (32.0-36.0) % RDW (11.6-17.2) % Plt Count (150-450) th/mm3 MPV (7.0-11.0) fL Prelim Diff (Auto) Neut % (Auto) (16.0-70.0) % Lymph % (Auto) (9.0-44.0) % [place] % (Auto) (0.0-8.0) % Eos % (Auto) (0.0-4.0) % Baso % (Auto) (0.0-2.0) % Neut # (Auto) (1.8-7.7) th/mm3 Lymph # (Auto) (1.0-4.8) th/mm3 [place] # (Auto) (0.0-0.9) th/mm3 Eos # (Auto) (0.0-0.4) th/mm3 Baso # (Auto) (0.0-0.2) th/mm3 WBC Differential Seg Neuts % (Manual) (16-70) % Band Neuts % (Manual) (0-6) % Lymphocytes % (Manual) (9-44) % Monocytes % (Manual) (0-8) % Eosinophils % (Manual) (0-4) % Abs Neuts (Manual) (1.8-7.7) th/mm3 Differential Comment Platelet Estimate (Normal) Platelet Morphology (Normal) Tear Drop Cells (None) Ovalocytes (None) PT (9.8-11.6) sec INR Ratio APTT (24.3-30.1) sec Sodium 141 (136-145) meq/L Potassium 3.3 L (3.5-5.1) meq/L Chloride 106 (98-107) meq/L Carbon Dioxide 27.0 (21.0-32.0) meq/L Anion Gap 8 (5-15) meq/L BUN 10 (7-18) mg/dL Creatinine 0.64 (0.50-1.00) mg/dL Estimated GFR Greater than 89 (>89) mL/min Random Glucose 71 L (74-106) mg/dL Calcium 8.8 (8.5-10.1) mg/dL Nasal Screen MRSA (PCR) (Negative) Imaging Data Radiologist's impression: Chest X-Ray 08/15/18 00:00 CONCLUSION: 1. Minimal bibasilar atelectatic changes with no confluent infiltrate. 2. Compensated cardiomegaly. 3. Degenerative changes in both shoulders. There is actual osseous deformity of the proximal right humerus, unchanged Head CT 08/15/18 20:39 CONCLUSION: 1. Patient has an acute 7.5 to 8 mm right subdural hematoma with an associated 4.5 to 5 mm right to left subfalcine shift. 2. Chronic changes with severe periventricular small vessel ischemic demyelination, old right occipital infarct, old right cerebellar infarct with a punctate small lacunar type infarct in the anterior aspect of the left cerebellar hemisphere. 3. Cephalohematoma projects over the lateral right orbital wall extending into the lateral preseptal space. The subjacent globe is intact. No associated fracture. . Head CT 08/16/18 06:00 CONCLUSION: 1. Stable size to the right subdural hematoma with mild decrease in the amount of midline shift. 2. No new findings. . ECG Data Attestation: I personally reviewed and interpreted this ECG as follows: Interpretation: Twelve-lead EKG was reviewed by me. A. fib, left axis deviation , old anterior PA. Heart rate of 70 bpm Discharge Plan Discharge Disposition Patient Disposition: 30 Still Patient Physicians Team ED Provider: Carmelo Suarez Primary Care Provider: UNKNOWN, Attending Provider: Sami Conde Status ED Status: Left Department Discharge Information Discharge Date/Time: 08/16/18 00:52
--- NOTE | 2018-08-15 21:55 | P.CONNS ---
History of Present Illness Primary Care Provider: UNKNOWN Chief Complaint: fall, SDH History of Present Illness: 73yoF on Xarelto for afib/recent stroke fell today after leaving rehab and struck her head this afternoon, without LOC. Has a bruise right side of face and right acute SDH about 7mm thick with 3mm shift. She is awake and intact per her baseline, present with her sister, answering appropriately and followign commands. Last dose of Xarelta last evening at 7pm, and when she held it due to GI bleeding earlier this year, developed strokes, thereby proving she needs some kind of anticoagulation. In fact, she had a clearance follow-up CT head yesterday which was negative. [facility] - History History Provided By: Patient - Medical History Medical History: Medical History (Last Reviewed 08/15/18 @ 21:41 by Carmelo Suarez MD) Afib Arthritis Hyperlipemia Hypertension Hyperthyroidism - Surgical History Surgical History: Surgical History (Last Reviewed 08/15/18 @ 21:41 by Carmelo Suarez MD) Hx of abdominal surgery Hx of knee surgery Hx of tonsillectomy - Tobacco History Second Hand Smoke Exposure: No Tobacco Use In Past 30 Days: No Smoking Status: Never smoker - Alcohol History How Often Do You Have a Drink Containing Alcohol: 2 to 3 times a week - Substance Use History Substance History: No History of Abuse - Travel History Recent Travel in the [place] Within the Last 8 Weeks: No Recent Travel Out of the Country Within the Last 8 Weeks: No - Immunization History Tetanus Immunization: <5 Years Medications and Allergies Active Medications: Active Medications Nicardipine HCl 25 mg/ Sodium (Chloride) 250 mls @ 50 mls/hr IV.CONT TITRATE PRN; Protocol PRN Reason: Per Protocol Levetiracetam 500 mg/ Sodium (Chloride) 105 mls @ 400 mls/hr IV.SIG ONCE ONE Stop: 08/15/18 21:59 Allergies Allergy/AdvReac Type Severity Reaction Status Date / Time No Known Allergies Allergy Verified 08/15/18 21:17 Home Medications Medication Instructions Recorded Confirmed Type ferrous sulfate 325 mg PO DAILY 07/12/18 08/15/18 History furosemide [Lasix] 20 mg PO DAILY 07/12/18 08/15/18 History gabapentin 100 mg PO BID 07/12/18 08/15/18 History levothyroxine [Synthroid] 200 mcg PO DAILY 07/12/18 08/15/18 History metoprolol tartrate 12.5 mg PO DAILY 07/12/18 08/15/18 History pantoprazole [Protonix] 40 mg PO DAILY 07/12/18 08/15/18 History Exam Vital signs: Vital Signs 08/15/18 16:47 08/15/18 17:00 08/15/18 21:17 Temperature 99.0 F Pulse Rate 62 60 73 Respiratory Rate 14 18 18 Blood Pressure 142/92 H 192/87 H 192/88 H Pulse Oximetry 96 98 95 Intake & Output 08/15/18 08/15/18 08/16/18 06:59 18:59 06:59 Weight 90.718 kg Narrative: A&O x 3 (pleasantly demented per baseline, does not know the year, but does know "Trump) CN II-XII intact Motor 5/5 UE/LE, no drift (bilateral rotator cuff injuries) Assessment and Plan - Plan 73yoF with acute SDH small with small midline shift, neurologically intact, last dose of Xarelto 7pm on 08/14 required due to a fib / recent stroke Plan: Admit ICU with neuro checks Keppra 500mg BID for sz prophylaxis (no history of seizures) Repeat CT in AM ~5-6AM Not planning to reverse Xarelto but will need to hold ~>2 weeks. Goal not to progress to a craniotomy, more likely burrholes in 1 week vs. nothing necessary if blood resorbs. Patient and her daughter, Dr. Small and Dr. Daniela ballard agreement-
--- NOTE | 2018-08-15 22:15 | P.HPCC ---
History of Present Illness Service: Critical Care Medicine Primary Care Physician: UNKNOWN Chief Complaint: fall, SDH History of Present Illness: 73-year-old left-hand dominant female with past medical history of hypertension, chronic atrial fibrillation on anticoagulation with Xarelto, hyperlipidemia, prior embolic strokes, prior history of EtOH abuse, reported mild dementia. Her sister lives with her and they were walking in the park at around 3:30 PM on 08/15. Patient usually ambulates with a walker but she had handed that off to her sister and immediately thereafter tripped over the wheel stop and fell hitting the right side of her head on concrete. She had no LOC or witnessed seizure activity. She wanted to go home but she had a headache so her sister urged her to be evaluated. No nausea, vomiting, visual changes, neck pain. Workup in the ED included CT brain with ~7-8 mm right subdural with 4-5 mm of right to left midline shift. There is evidence of prior strokes in her right occipital lobe, left cerebellum. Patient has had a prior embolic stroke in June 2018 in the setting of A fib and was prescribed low-dose Xarelto after that. About a week and a half ago she had followed up with Dr. Castillo and xarelto had been increased to 20 mg p.o. daily. Her last dose of Xarelto was at 19:00 on 08/14. Unfortunately, her last stroke occurred after xarelto was held following surgery for abdominal abscess. Will obviously need to hold xarelto currently, however will defer reversal with Kcentra at this time per discussion with Dr. Guallpa. Discussed risk/benefits with patient and her sister. Inpatient Certification: I certify that the inpatient services were ordered in accordance with Medicare regulations governing the order. This includes certification that hospital inpatient services are reasonable and necessary and in the case of services not specified as inpatient-only under 42 CFR 419.22(n), that they are appropriately provided as inpatient services in accordance to with the 2-midnight benchmark under 43 CFR 412.3(e) Review of Systems All other systems reviewed negative except as stated in HPI PMFSH - History History Provided By: Patient - Medical History Medical History: Medical History (Last Updated 08/16/18 @ 05:31 by Yolanda Small MD) Afib Dementia Hyperlipemia Hypertension Hypothyroid Iron deficiency Osteoarthritis Torn rotator cuff - Surgical History Surgical History: Surgical History (Last Updated 08/16/18 @ 05:31 by Yolanda Small MD) History of bilateral knee replacement Hx of abdominal surgery Hx of knee surgery Hx of tonsillectomy - Family History Family History: Family History (Last Updated 08/16/18 @ 05:32 by Yolanda Small MD) Mother Rheumatoid arthritis Hypothyroid Stroke Father HTN (hypertension) Leukemia Other Patient's father is Patient's mother is - Tobacco History Second Hand Smoke Exposure: No Tobacco Use In Past 30 Days: No Smoking Status: Never smoker - Alcohol History How Often Do You Have a Drink Containing Alcohol: 2 to 3 times a week - Substance Use History Substance History: Past History - Travel History Recent Travel in the [place] Within the Last 8 Weeks: No Recent Travel Out of the Country Within the Last 8 Weeks: No - Immunization History Tetanus Immunization: <5 Years Medications and Allergies Active Medications: Active Medications Nicardipine HCl 25 mg/ Sodium (Chloride) 250 mls @ 50 mls/hr IV.CONT TITRATE PRN; Protocol PRN Reason: Per Protocol Labetalol HCl (Trandate Inj) 10 mg IV.PUSH Q4H PRN PRN Reason: SBP >160 Levetiracetam (Keppra) 500 mg PO BID LURDES Allergies Allergy/AdvReac Type Severity Reaction Status Date / Time No Known Allergies Allergy Verified 08/15/18 21:17 Home Medications Medication Instructions Recorded Confirmed Type ferrous sulfate 325 mg PO DAILY 07/12/18 08/15/18 History furosemide [Lasix] 20 mg PO DAILY 07/12/18 08/15/18 History gabapentin 100 mg PO BID 07/12/18 08/15/18 History levothyroxine [Synthroid] 200 mcg PO DAILY 07/12/18 08/15/18 History metoprolol tartrate 12.5 mg PO DAILY 07/12/18 08/15/18 History pantoprazole [Protonix] 40 mg PO DAILY 07/12/18 08/15/18 History Results - Labs CBC & Chem 7: 08/16/18 03:34 08/16/18 03:34 - Imaging Impressions Head CT 08/15/18 20:39 CONCLUSION: 1. Patient has an acute 7.5 to 8 mm right subdural hematoma with an associated 4.5 to 5 mm right to left subfalcine shift. 2. Chronic changes with severe periventricular small vessel ischemic demyelination, old right occipital infarct, old right cerebellar infarct with a punctate small lacunar type infarct in the anterior aspect of the left cerebellar hemisphere. 3. Cephalohematoma projects over the lateral right orbital wall extending into the lateral preseptal space. The subjacent globe is intact. No associated fracture. . Exam Vital signs: Vital Signs 08/15/18 16:47 08/15/18 17:00 08/15/18 21:17 Temperature 99.0 F Pulse Rate 62 60 73 Respiratory Rate 14 18 18 Blood Pressure 142/92 H 192/87 H 192/88 H Pulse Oximetry 96 98 95 Intake & Output 08/15/18 08/15/18 08/16/18 06:59 18:59 06:59 Weight 90.718 kg Narrative: GENERAL: Well-nourished, well-developed patient who is sitting up in bed, alert and conversant. SKIN: Warm and dry. HEAD: Normocephalic. +right periorbital ecchymosis. There is approximately 2 cm linear laceration lateral to right eyelid where dermal adhesive has been applied. EYES: Pupils equal and round, 2 mm and reactive to 1 bilaterally.. No scleral icterus. No injection or drainage. ENT: No nasal bleeding or discharge. Mucous membranes pink and moist. NECK: Trachea midline. No JVD. CARDIOVASCULAR: Irregularly irregular, atrial fibrillation with rate in the 70s on the monitor.. No murmurs rubs or gallops. RESPIRATORY: Breathing comfortably with no accessory muscle use. Clear to auscultation. Breath sounds equal bilaterally. On room air GASTROINTESTINAL: Abdomen soft, non-tender, nondistended. Bowel sounds present. MUSCULOSKELETAL: Extremities without clubbing, cyanosis, or edema. No obvious deformities. NEUROLOGICAL: Awake and alert. No obvious cranial nerve deficits, extraocular movements intact. Tongue protrusion midline.. No facial droop. She has bilateral rotator cuff injuries so has difficulty lifting up her arms bilaterally. Biceps/triceps/senior planning analyst strength 5/5 bilaterally. Ankle plantar/ dorsiflexion and hip flexor/hamstrings are 5/5 bilaterally. Sensation intact. Caprini VTE Risk Assessment Caprini VTE Risk Assessment: Moderate/High Risk (score >= 2) VTE Pharmacological Exception Reason: Intracranial lesions Caprini Risk Assessment Model: Point Value = 1 Point Value = 2 Point Value = 3 Point Value = 5 Age 41-60 Minor surgery BMI > 25 kg/m2 Swollen legs Varicose veins or History of unexplained or recurrent spontaneous Oral contraceptives or hormone replacement Sepsis (< 1 month) Serious lung disease, including pneumonia (< 1 month) Abnormal pulmonary function Acute myocardial infarction Congestive heart failure (< 1 month) History of inflammatory bowel disease Medical patient at bed rest Age 61-74 Arthroscopic surgery Major open surgery (> 45 min) Laparoscopic surgery (> 45 min) Malignancy Confined to bed (> 72 hours) Immobilizing plaster cast Central venous access Age >= 75 History of VTE Family history of VTE Factor V Leiden Prothrombin [id number] Lupus anticoagulant Anticardiolipin antibodies Elevated serum homocysteine Heparin-induced thrombocytopenia Other congenital or acquired thrombophilia Stroke (< 1 month) Elective arthroplasty Hip, pelvis, or leg fracture Acute spinal cord injury (< 1 month) Prophylaxis Regimen: Total Risk Factor Score Risk Level Prophylaxis Regimen 0-1 Low Early ambulation 2 Moderate Order ONE of the following: *Sequential Compression Device (SCD) *Heparin 5000 units SQ BID 3-4 Higher Order ONE of the following medications: *Heparin 5000 units SQ TID *Enoxaparin/Lovenox 40 mg SQ daily (WT < 150 kg, CrCl > 30 mL/min) *Enoxaparin/Lovenox 30 mg SQ daily (WT < 150 kg, CrCl > 10-29 mL/min) *Enoxaparin/Lovenox 30 mg SQ BID (WT < 150 kg, CrCl > 30 mL/min) AND/OR *Sequential Compression Device (SCD) 5 or more Highest Order ONE of the following medications: *Heparin 5000 units SQ TID (Preferred with Epidurals) *Enoxaparin/Lovenox 40 mg SQ daily (WT < 150 kg, CrCl > 30 mL/min) *Enoxaparin/Lovenox 30 mg SQ daily (WT < 150 kg, CrCl > 10-29 mL/min) *Enoxaparin/Lovenox 30 mg SQ BID (WT < 150 kg, CrCl > 30 mL/min) AND *Sequential Compression Device (SCD) Assessment and Plan - Assessment and Plan Plan: NEURO: R Subdural hematoma with midline shift. Fall History of stroke Chronic anticoagulation with Xarelto due to history of stroke/ A fib Mild dementia Prior history of alcohol dependence Admit to [facility] for neurochecks Follow-up CT brain in a.m. Keppra 500 mg p.o. twice daily for seizure prophylaxis per Dr. Guallpa recommendation. Hold rivaroxaban and aspirin. Hold off on K Centra at this time, may require if early surgery as needed. Monitor for signs and symptoms of alcohol withdrawal. Thiamine/multivitamin daily Peripheral neuropathy Continue gabapentin 100 mg p.o. twice daily RESP: On RA CV: Hypertension Hyperlipidemia Atrial fibrillation Labetalol/hydralazine as needed for systolic blood pressure greater than 160. Nicardipine if needed. Continue atorvastatin 80 mg p.o. daily, metoprolol tartrate 12.5 mg p.o. daily, Lasix 20 mg p.o. daily GI: GERD Heart healthy diet FEN/RENAL: Monitor electrolytes and replace as indicated per ICU electrolyte replacement protocol ID: Monitor for signs and symptoms of infection HEME: Chronic anticoagulation with rivaroxaban Iron deficiency Erythrocyte macrocytosis Continue ferrous sulfate 325 mg p.o. daily. ENDO: Hypothyroidism Continue Synthroid 200 mcg p.o. daily PROPH: SCDs for DVT prophylaxis. Avoid pharmacologic DVT prophylaxis due to subdural hematoma. Protonix for stress ulcer prophylaxis and history of GERD ACCESS: Peripheral IV providing adequate access at this time. Discussed with Dr. Guallpa. Patient and her sister were updated at bedside regarding plan of care. Patient is critically ill with subdural hematoma on chronic anticoagulation and antiplatelet therapy and is at risk for further deterioration including expansion of subdural hematoma requiring emergent crani and/or resulting in loss of airway protection. Hypertension is poorly controlled and in need of urgent management. She will need to remain in [facility]. Critical care time 40 minutes exclusive of separately billable procedures.
[2018-08-15] MEDS ORDERED: Bisacodyl 10 MG Supp RECTAL PRN (22:18)
--- NOTE | 2018-08-15 22:34 | XR ---
EXAM DATE: 08/15/2018 10:30 PM EDT AGE/SEX: 73 years / Female INDICATIONS: Shortness of breath. CLINICAL DATA: This is the patient's initial encounter. Patient reports that signs and symptoms have been present for 1 day and indicates a pain score of Nonresponsive. MEDICAL/SURGICAL HISTORY: . Atrial fibrillation. None. [place] [facility] [place]. . FINDINGS: A single AP view of the chest demonstrates the lungs to be symmetrically aerated with no acute infilt rate. Minimal atelectatic changes in the lung bases. Heart size is prominent but well compensated. Os seous structures are intact with degenerative changes in both shoulders. There is deformity of the pr oximal right humerus CONCLUSION: 1. Minimal bibasilar atelectatic changes with no confluent infiltrate. 2. Compensated cardiomegaly. 3. Degenerative changes in both shoulders. There is actual osseous deformity of the proximal right h umerus, unchanged Electronically signed by: Bhanu Iraheta MD 08/15/2018 10:33 PM EDT
[2018-08-15 23:22] LABS: Hematocrit 37.2 % (35.0-46.0); Hemoglobin 12.5 gm/dL (11.6-15.3); Mean Corpuscular HGB Conc 33.6 % (32.0-36.0); Mean Corpuscular Hemoglobin 35.9 pg (27.0-34.0); Mean Corpuscular Volume 106.8 fL (80.0-100.0); Mean Platelet Volume 9.4 fL (7.0-11.0); Platelet Count 125 th/mm3 (150-450); Red Blood Count 3.48 mil/mm3 (4.00-5.30); Red Cell Distribution Width 15.9 % (11.6-17.2); White Blood Count 7.6 th/mm3 (4.0-11.0)
[2018-08-15] MEDS: Sod Chloride 0.9% Inj 1,000 ML IV.CONT SCH (23:29)
[2018-08-15 23:31] LABS: Activated Partial Thrombo Time 23.4 sec (24.3-30.1); INR 1.1 Ratio; Prothrombin Time 10.9 sec (9.8-11.6)
[2018-08-15 23:45] LABS: Eosinophils 1 % (0-4); Lymphocytes 13 % (9-44); Monocytes 7 % (0-8)
[2018-08-15 23:46] LABS: Ovalocytes 2+; Platelet Morphology Normal (Normal); Tear Drop Cells 1+
[2018-08-16 00:10] LABS: Calcium 8.8 mg/dL (8.5-10.1); Carbon Dioxide 26.9 meq/L (21.0-32.0); Potassium 3.9 meq/L (3.5-5.1)
[2018-08-16] MEDS: hydrALAZINE HCl Inj 20 MG/ML Vial IV.PUSH PRN ×2 (02:15→10:04)
[2018-08-16] MEDS: Acetaminophen 325 MG Tablet PO PRN ×2 (03:04→08:06)
[2018-08-16 03:51] LABS: Baso % (Auto) 0.5 % (0.0-2.0); Eos # (Auto) 0.1 th/mm3 (0.0-0.4); Eos % (Auto) 2.3 % (0.0-4.0); Hemoglobin 12.2 gm/dL (11.6-15.3); Lymph # (Auto) 0.7 th/mm3 (1.0-4.8); Lymph % (Auto) 12.8 % (9.0-44.0); Mean Corpuscular HGB Conc 34.7 % (32.0-36.0); Mean Corpuscular Hemoglobin 36.4 pg (27.0-34.0); Mean Corpuscular Volume 104.8 fL (80.0-100.0); Mean Platelet Volume 9.1 fL (7.0-11.0); Mono # (Auto) 0.4 th/mm3 (0.0-0.9); Mono % (Auto) 7.3 % (0.0-8.0); Neut # (Auto) 4.4 th/mm3 (1.8-7.7); Neut % (Auto) 77.1 % (16.0-70.0); Platelet Count 116 th/mm3 (150-450); Red Blood Count 3.34 mil/mm3 (4.00-5.30); Red Cell Distribution Width 15.8 % (11.6-17.2); White Blood Count 5.8 th/mm3 (4.0-11.0)
[2018-08-16] MEDS ORDERED: Chlorhexidine Gluconate 2% 1 Pack (2 Cloths) TOPICAL PRN (04:00)
[2018-08-16 04:12] LABS: Calcium 8.6 mg/dL (8.5-10.1); Carbon Dioxide 29.5 meq/L (21.0-32.0); Potassium 3.2 meq/L (3.5-5.1)
[2018-08-16] MEDS: Chlorhexidine Gluconate 2% 1 Pack (2 Cloths) TOPICAL SCH (04:13)
--- NOTE | 2018-08-16 04:55 | CT ---
EXAM DATE: 08/16/2018 4:48 AM EDT AGE/SEX: 73 years / Female INDICATIONS: Follow up bleed after fall. CLINICAL DATA: This is the patient's subsequent encounter. Patient reports that signs and symptoms h ave been present for 1 day and indicates a pain score of 3/10. MEDICAL/SURGICAL HISTORY: Cerebrovascular disease. Tonsillectomy. Abdominal surgery RADIATION DOSE: 56.35 CTDI (mGy) COMPARISON: [facility] – [place], [place] HEAD W/O CONTRAST, 08/15/2018. . TECHNIQUE: CT of the head without contrast. Using automated exposure control and adjustment of the mA and/or kV according to patient size, radiation dose was kept as low as reasonably achievable to ob tain optimal diagnostic quality images. DICOM format image data is available electronically for revi ew and comparison. FINDINGS: Cerebrum: Right subdural hematoma extending from the temporal region and high convexity is similar i n distribution to prior examination measures up to 7 mm in width, similar to prior. The density is al so similar to prior. There has been a reduction in the amount of midline shift, now measuring 3 mm to wards the left (previously measured 5. There is good julian-white matter differentiation. No intraparen chymal hemorrhage is seen. Decreased attenuation in the supratentorial white matter and old right occ ipital infarct similar to prior. The ventricles are normal size. Posterior Fossa: The cerebellum and brainstem are stable with lacunar infarct in the anterior left c erebellar hemisphere. No acute findings.. The 4th ventricle is midline. The cerebellopontine angle is unremarkable. Extracranial: The visualized portion of the orbits is intact. Skull: Stable subcutaneous hematoma right periorbital region measuring up to 12 mm in thickness. The calvaria is intact. No evidence of skull fracture. CONCLUSION: 1. Stable size to the right subdural hematoma with mild decrease in the amount of midline shift. 2. No new findings. . Electronically signed by: Lars Bourne MD 08/16/2018 4:54 AM EDT
[2018-08-16] MEDS ORDERED: Magnesium Sulfate Inj 4 GM in Sodium Chlor 0.9% Inj 92 ML IV.SIG PRN (05:41)
[2018-08-16] MEDS ORDERED: Magnesium Oxide 400 MG Tablet PO PRN (05:41)
[2018-08-16] MEDS ORDERED: Potassium Phosphate Inj 30 MMOL in Sodium Chlor 0.9% Inj 250 ML IV.SIG PRN (05:41)
[2018-08-16] MEDS ORDERED: Potassium Chlor 20 mEq Premix 20 MEQ/100 ML PIGGYBACK IV.SIG PRN ×2 (05:41)
[2018-08-16] MEDS ORDERED: Sodium Phosphate Inj 30 MMOL in Sodium Chlor 0.9% Inj 250 ML IV.SIG PRN (05:41)
[2018-08-16] MEDS ORDERED: Magnesium Sulfate Inj 2 GM in Sodium Chlor 0.9% Inj 96 ML IV.SIG PRN (05:41)
[2018-08-16] MEDS ORDERED: Potassium Chlor 40 mEq Premix 40 MEQ/100 ML PIGGYBACK IV.SIG PRN ×2 (05:41)
[2018-08-16] MEDS ORDERED: Potassium Chloride 25 MEQ Effervescent Tablet PO PRN (05:41)
[2018-08-16] MEDS ORDERED: Potassium Phosphate 500 MG Soluble Tablet PO PRN ×2 (05:41)
[2018-08-16] MEDS ORDERED: Influenza (Quadrivalent) Vaccine 0.5 ML Syringe IM ONE (07:45)
--- NOTE | 2018-08-16 10:12 | P.PNCC ---
Subjective Subjective Remarks/Hospital Course: 73-year-old left-hand dominant female with past medical history of hypertension, chronic atrial fibrillation on anticoagulation with Xarelto, hyperlipidemia, prior embolic strokes, prior history of EtOH abuse, reported mild dementia. Her sister lives with her and they were walking in the park at around 3:30 PM on 08/15. Patient usually ambulates with a walker but she had handed that off to her sister and immediately thereafter tripped over the wheel stop and fell hitting the right side of her head on concrete. She had no LOC or witnessed seizure activity. She wanted to go home but she had a headache so her sister urged her to be evaluated. No nausea, vomiting, visual changes, neck pain. Workup in the ED included CT brain with ~7-8 mm right subdural with 4-5 mm of right to left midline shift. There is evidence of prior strokes in her right occipital lobe, left cerebellum. Patient has had a prior embolic stroke in June 2018 in the setting of A fib and was prescribed low-dose Xarelto after that. About a week and a half ago she had followed up with Dr. Castillo and xarelto had been increased to 20 mg p.o. daily. Her last dose of Xarelto was at 19:00 on 08/14. Unfortunately, her last stroke occurred after xarelto was held following surgery for abdominal abscess. Will obviously need to hold xarelto currently, however will defer reversal with Kcentra at this time per discussion with Dr. Guallpa. Discussed risk/benefits with patient and her sister. 08/16: Traumatic right subdural hematoma sustained in fall last evening while on Xarelto therapy for atrial fibrillation. Considerable ecchymosis persists in the right periorbital region. Neurologic exam unchanged from last evening. Repeat CAT scan of the head is pending. No seizures or vomiting. Objective Vital Signs / I&O: Vital Signs 08/15/18 16:47 08/15/18 17:00 08/15/18 21:17 Temperature 99.0 F Pulse Rate 62 60 73 Respiratory Rate 14 18 18 Blood Pressure 142/92 H 192/87 H 192/88 H Pulse Oximetry 96 98 95 08/15/18 23:30 08/16/18 00:00 08/16/18 01:00 Temperature 98.3 F Pulse Rate 90 82 89 Respiratory Rate 18 19 19 Blood Pressure 187/106 H 135/77 173/80 H Pulse Oximetry 96 94 L 97 08/16/18 02:00 08/16/18 03:00 08/16/18 03:34 Temperature Pulse Rate 70 86 Respiratory Rate 23 19 19 Blood Pressure 198/91 H 168/79 H Pulse Oximetry 98 94 L 08/16/18 03:43 08/16/18 03:58 08/16/18 04:00 Temperature 97.7 F Pulse Rate 90 88 91 H Respiratory Rate 19 24 23 Blood Pressure 161/78 H 161/78 H Pulse Oximetry 95 94 L 96 08/16/18 04:13 08/16/18 04:17 08/16/18 04:28 Temperature 97.7 F Pulse Rate 88 86 119 H Respiratory Rate 22 22 53 H Blood Pressure 159/80 H 162/96 H 196/102 H Pulse Oximetry 94 L 95 95 08/16/18 04:40 08/16/18 04:43 08/16/18 04:58 Temperature Pulse Rate 96 H 87 86 Respiratory Rate 19 18 20 Blood Pressure 181/83 H 184/78 H 175/79 H Pulse Oximetry 96 96 95 08/16/18 05:00 08/16/18 05:13 08/16/18 05:28 Temperature Pulse Rate 89 83 79 Respiratory Rate 19 17 15 Blood Pressure 175/79 H 158/66 H 131/63 Pulse Oximetry 94 L 96 93 L 08/16/18 05:30 08/16/18 05:43 08/16/18 05:58 Temperature Pulse Rate 80 79 Respiratory Rate 15 19 Blood Pressure 131/63 125/64 149/69 H Pulse Oximetry 94 L 91 L 08/16/18 06:00 08/16/18 06:13 08/16/18 06:28 Temperature Pulse Rate 79 90 84 Respiratory Rate 16 22 20 Blood Pressure 149/69 H 149/72 H 142/66 H Pulse Oximetry 94 L 95 95 08/16/18 06:43 08/16/18 06:58 08/16/18 07:00 Temperature Pulse Rate 78 79 76 Respiratory Rate 20 17 17 Blood Pressure 152/72 H 160/78 H Pulse Oximetry 96 96 95 08/16/18 07:13 08/16/18 07:28 08/16/18 07:43 Temperature Pulse Rate 83 82 82 Respiratory Rate 18 17 21 Blood Pressure 133/87 162/77 H 153/112 H Pulse Oximetry 96 97 95 08/16/18 07:51 08/16/18 07:58 08/16/18 08:00 Temperature Pulse Rate 80 102 H 94 H Respiratory Rate 18 24 19 Blood Pressure 155/76 H 194/94 H Pulse Oximetry 96 97 95 08/16/18 08:05 08/16/18 08:13 Temperature Pulse Rate 87 81 Respiratory Rate 17 17 Blood Pressure 186/83 H 159/73 H Pulse Oximetry 96 97 Intake & Output 08/15/18 08/16/18 08/16/18 18:59 06:59 18:59 Intake Total 155 / 155 Output Total 600 / 600 Balance -445 / -445 Weight 90.718 kg 86.3 kg Intake: IV 105 / 105 Keppra Inj 500 MG In NS Inj 100 105 / 105 ML @ 400 mls/hr IV.SIG ONCE ONE Rx#:[id number] Oral 50 / 50 Output: Urine 550 / 550 Emesis 50 / 50 Other: # Voids 3 # Incontinent Voids 1 Date of Last Bowel Movement 08/15/18 08/15/18 # Bowel Movements 0 # Emeses 1 Weight On Admission 86.8 kg Result Diagrams: 08/16/18 03:34 08/16/18 03:34 Objective Remarks: Narrative: GENERAL: Well-nourished, well-developed patient who is in bed, sleepy but conversant. SKIN: Warm and dry. HEAD: Normocephalic. +right periorbital ecchymosis. There is approximately 2 cm linear laceration lateral to right eyelid where dermal adhesive has been applied. Some swelling under scalp right side EYES: Pupils equal and round, 2 mm and reactive to 1. No conjunctival icterus. No injection or drainage. ENT: No nasal bleeding or discharge. Mucous membranes pink and moist. NECK: Trachea midline. Airway is widely patent no obstructive noises CARDIOVASCULAR: Irregularly irregular, atrial fibrillation with rate in the 80s on the monitor.. No murmurs rubs or gallops. No JVD RESPIRATORY: Comfortable respiratory pattern. Clear to auscultation. Breath sounds equal bilaterally. GASTROINTESTINAL: Abdomen soft, non-tender, nondistended. Bowel sounds present. No guarding. MUSCULOSKELETAL: Extremities without clubbing, cyanosis, or edema. No obvious deformities. Warm, well-perfused. NEUROLOGICAL: Awake and alert. No obvious cranial nerve deficits, extraocular movements intact. Tongue protrusion midline. No facial droop. Biceps/triceps/ children's zoo caretaker strength 5/5 bilaterally. Ankle plantar/dorsiflexion and hip flexor/ hamstrings are 5/5 bilaterally. Sensation intact. Assessment and Plan - Assessment and Plan Plan: NEURO: R Subdural hematoma with midline shift. Fall History of stroke Chronic anticoagulation with Xarelto due to history of stroke/ A fib Mild dementia Prior history of alcohol dependence Admit to [facility] for neurochecks Follow-up CT brain in a.m. Keppra 500 mg p.o. twice daily for seizure prophylaxis per Dr. Guallpa recommendation. Hold rivaroxaban and aspirin. Hold off on K Centra at this time, may require if early surgery as needed. Monitor for signs and symptoms of alcohol withdrawal. Thiamine/multivitamin daily Peripheral neuropathy Continue gabapentin 100 mg p.o. twice daily RESP: On RA CV: Hypertension Hyperlipidemia Atrial fibrillation Labetalol/hydralazine as needed for systolic blood pressure greater than 160. Nicardipine if needed. Continue atorvastatin 80 mg p.o. daily, metoprolol tartrate 12.5 mg p.o. daily, Lasix 20 mg p.o. daily GI: GERD Heart healthy diet FEN/RENAL: Monitor electrolytes and replace as indicated per ICU electrolyte replacement protocol ID: Monitor for signs and symptoms of infection HEME: Chronic anticoagulation with rivaroxaban Iron deficiency Erythrocyte macrocytosis Continue ferrous sulfate 325 mg p.o. daily. ENDO: Hypothyroidism Continue Synthroid 200 mcg p.o. daily PROPH: SCDs for DVT prophylaxis. Avoid pharmacologic DVT prophylaxis due to subdural hematoma. Protonix for stress ulcer prophylaxis and history of GERD ACCESS: Peripheral IV providing adequate access at this time. Patient and her sister have been updated at bedside regarding plan of care. Patient is critically ill with subdural hematoma on NOAC anticoagulation and antiplatelet therapy and is at risk for further deterioration including expansion of subdural hematoma requiring emergent crani and/or resulting in loss of airway protection. Hypertension is poorly controlled and in need of urgent management. She will need to remain in [facility]. Critical care 38 minutes
[2018-08-16] MEDS: Ferrous Sulfate 325 MG Tablet PO SCH (11:15)
[2018-08-16] MEDS: Furosemide 20 MG Tablet PO SCH (11:16)
[2018-08-16] MEDS: Metoprolol Tartrate 25 MG Tablet PO SCH (11:16)
[2018-08-16] MEDS: Gabapentin 100 MG Capsule PO SCH ×2 (11:16→21:54)
[2018-08-16] MEDS: Senna/Docusate Sodium 8.6/50 MG Tablet PO SCH ×2 (11:17→21:54)
[2018-08-16] MEDS: levETIRAcetam 500 MG Tablet PO SCH ×2 (11:19→21:54)
[2018-08-16] MEDS ORDERED: Acetaminophen/Codeine 120/12 MG Elixir 5 ML UDC PO PRN (12:42)
--- NOTE | 2018-08-16 12:45 | P.PNNS ---
Subjective Interval history: Doing well. Nauseous with movement, repeat CT showing SDH slightly smaller with less shift Physical Exam Vital signs: Vital Signs 08/15/18 16:47 08/15/18 17:00 08/15/18 21:17 Temperature 99.0 F Pulse Rate 62 60 73 Respiratory Rate 14 18 18 Blood Pressure 142/92 H 192/87 H 192/88 H Pulse Oximetry 96 98 95 08/15/18 23:30 08/16/18 00:00 08/16/18 01:00 Temperature 98.3 F Pulse Rate 90 82 89 Respiratory Rate 18 19 19 Blood Pressure 187/106 H 135/77 173/80 H Pulse Oximetry 96 94 L 97 08/16/18 02:00 08/16/18 03:00 08/16/18 03:34 Temperature Pulse Rate 70 86 Respiratory Rate 23 19 19 Blood Pressure 198/91 H 168/79 H Pulse Oximetry 98 94 L 08/16/18 03:43 08/16/18 03:58 08/16/18 04:00 Temperature 97.7 F Pulse Rate 90 88 91 H Respiratory Rate 19 24 23 Blood Pressure 161/78 H 161/78 H Pulse Oximetry 95 94 L 96 08/16/18 04:13 08/16/18 04:17 08/16/18 04:28 Temperature 97.7 F Pulse Rate 88 86 119 H Respiratory Rate 22 22 53 H Blood Pressure 159/80 H 162/96 H 196/102 H Pulse Oximetry 94 L 95 95 08/16/18 04:40 08/16/18 04:43 08/16/18 04:58 Temperature Pulse Rate 96 H 87 86 Respiratory Rate 19 18 20 Blood Pressure 181/83 H 184/78 H 175/79 H Pulse Oximetry 96 96 95 08/16/18 05:00 08/16/18 05:13 08/16/18 05:28 Temperature Pulse Rate 89 83 79 Respiratory Rate 19 17 15 Blood Pressure 175/79 H 158/66 H 131/63 Pulse Oximetry 94 L 96 93 L 08/16/18 05:30 08/16/18 05:43 08/16/18 05:58 Temperature Pulse Rate 80 79 Respiratory Rate 15 19 Blood Pressure 131/63 125/64 149/69 H Pulse Oximetry 94 L 91 L 08/16/18 06:00 08/16/18 06:13 08/16/18 06:28 Temperature Pulse Rate 79 90 84 Respiratory Rate 16 22 20 Blood Pressure 149/69 H 149/72 H 142/66 H Pulse Oximetry 94 L 95 95 08/16/18 06:43 08/16/18 06:58 08/16/18 07:00 Temperature Pulse Rate 78 79 76 Respiratory Rate 20 17 17 Blood Pressure 152/72 H 160/78 H Pulse Oximetry 96 96 95 08/16/18 07:13 08/16/18 07:28 08/16/18 07:43 Temperature Pulse Rate 83 82 82 Respiratory Rate 18 17 21 Blood Pressure 133/87 162/77 H 153/112 H Pulse Oximetry 96 97 95 08/16/18 07:51 08/16/18 07:58 08/16/18 08:00 Temperature Pulse Rate 80 102 H 94 H Respiratory Rate 18 24 19 Blood Pressure 155/76 H 194/94 H Pulse Oximetry 96 97 95 08/16/18 08:05 08/16/18 08:13 08/16/18 09:00 Temperature Pulse Rate 87 81 77 Respiratory Rate 17 17 Blood Pressure 186/83 H 159/73 H Pulse Oximetry 96 97 08/16/18 11:14 Temperature Pulse Rate Respiratory Rate 18 Blood Pressure Pulse Oximetry Intake & Output 08/15/18 08/16/18 08/16/18 18:59 06:59 18:59 Intake Total 155 / 155 Output Total 600 / 600 Balance -445 / -445 Weight 90.718 kg 86.3 kg Intake: IV 105 / 105 Keppra Inj 500 MG In NS Inj 100 105 / 105 ML @ 400 mls/hr IV.SIG ONCE ONE Rx#:[id number] Oral 50 / 50 Output: Urine 550 / 550 Emesis 50 / 50 Other: # Voids 3 # Incontinent Voids 1 Date of Last Bowel Movement 08/15/18 08/15/18 # Bowel Movements 0 # Emeses 1 Weight On Admission 86.8 kg Narrative: A&O x 3 CN II-XII intact Motor 5/5 UE/LE Assessment and Plan - Plan 73yoF with acute SDH small with small midline shift, neurologically intact, last dose of Xarelto 7pm on 08/14 required due to a fib / recent stroke Plan: 08/15 Admit ICU with neuro checks Keppra 500mg BID for sz prophylaxis (no history of seizures) Repeat CT in AM ~5-6AM Not planning to reverse Xarelto but will need to hold ~>2 weeks. Goal not to progress to a craniotomy, more likely burrholes in 1 week vs. nothing necessary if blood resorbs. Patient and her daughter, Dr. Small and Dr. Suarez werein agreement 08/[address] stable. Will try Zofran, Phenergan for nausea. Advance diet. Will try stronger pain medication for headache Tramadol / Codeine? -
[2018-08-16] MEDS: Labetalol HCl Inj 100 MG/20 ML Vial IV.PUSH PRN ×2 (14:42→23:11)
[2018-08-16] MEDS: Sod Chloride 0.9% Inj 1,000 ML IV.CONT SCH (19:30)
--- NOTE | 2018-08-17 00:17 | ECG ---
Date Performed: 08/15/2018 Time Performed: 23:40:01 PTAGE: 73 years EKG: ATRIAL FIBRILLATION LEFT AXIS DEVIATION NONSPECIFIC ST-T WAVE ABNORMALITY PREVIOUS TRACING : 07/12/2018 09.48 Since the previous tracing, no significant change not ed DOCTOR: Uday Nunes Interpretating Date/Time 08/17/2018 00:16:54
[2018-08-17] MEDS: Labetalol HCl Inj 100 MG/20 ML Vial IV.PUSH PRN ×2 (00:29→20:05)
[2018-08-17] MEDS: Chlorhexidine Gluconate 2% 1 Pack (2 Cloths) TOPICAL SCH (03:35)
[2018-08-17 05:33] LABS: Anion Gap 8 meq/L (5-15); Blood Urea Nitrogen 10 mg/dL (7-18); Calcium 8.8 mg/dL (8.5-10.1); Chloride 106 meq/L (98-107); Glomerular Filtration Rate Greater Than 89 mL/min (>89); Glucose,Random 71 mg/dL (74-106); Potassium 3.3 meq/L (3.5-5.1); Sodium 141 meq/L (136-145)
[2018-08-17] MEDS: hydrALAZINE HCl Inj 20 MG/ML Vial IV.PUSH PRN ×3 (05:55→23:03)
[2018-08-17] MEDS: Senna/Docusate Sodium 8.6/50 MG Tablet PO SCH ×2 (09:35→20:33)
[2018-08-17] MEDS: levETIRAcetam 500 MG Tablet PO SCH ×2 (09:35→20:33)
[2018-08-17] MEDS: Furosemide 20 MG Tablet PO SCH (09:35)
[2018-08-17] MEDS: Ferrous Sulfate 325 MG Tablet PO SCH (09:35)
[2018-08-17] MEDS: Metoprolol Tartrate 25 MG Tablet PO SCH (09:36)
[2018-08-17] MEDS ORDERED: Potassium Chlor 20 mEq Premix 20 MEQ/100 ML PIGGYBACK IV.SIG ONE (10:00)
[2018-08-17] MEDS: Gabapentin 100 MG Capsule PO SCH ×2 (10:37→20:33)
--- NOTE | 2018-08-17 11:48 | P.PNCC ---
Subjective Subjective Remarks/Hospital Course: 73-year-old left-hand dominant female with past medical history of hypertension, chronic atrial fibrillation on anticoagulation with Xarelto, hyperlipidemia, prior embolic strokes, prior history of EtOH abuse, reported mild dementia. Her sister lives with her and they were walking in the park at around 3:30 PM on 08/15. Patient usually ambulates with a walker but she had handed that off to her sister and immediately thereafter tripped over the wheel stop and fell hitting the right side of her head on concrete. She had no LOC or witnessed seizure activity. She wanted to go home but she had a headache so her sister urged her to be evaluated. No nausea, vomiting, visual changes, neck pain. Workup in the ED included CT brain with ~7-8 mm right subdural with 4-5 mm of right to left midline shift. There is evidence of prior strokes in her right occipital lobe, left cerebellum. Patient has had a prior embolic stroke in June 2018 in the setting of A fib and was prescribed low-dose Xarelto after that. About a week and a half ago she had followed up with Dr. Castillo and xarelto had been increased to 20 mg p.o. daily. Her last dose of Xarelto was at 19:00 on 08/14. Unfortunately, her last stroke occurred after xarelto was held following surgery for abdominal abscess. Will obviously need to hold xarelto currently, however will defer reversal with Kcentra at this time per discussion with Dr. Guallpa. Discussed risk/benefits with patient and her sister. 08/16: Traumatic right subdural hematoma sustained in fall last evening while on Xarelto therapy for atrial fibrillation. Considerable ecchymosis persists in the right periorbital region. Neurologic exam unchanged from last evening. Repeat CAT scan of the head is pending. No seizures or vomiting. 08/17: Continues to improve but chronically weak. Will have case management assess home situation. It may be best for this woman to be in a senior living facility. No anticoagulation for at least 2 weeks. Objective Vital Signs / I&O: Vital Signs 08/16/18 11:58 08/16/18 12:00 08/16/18 12:58 Temperature 98 F Pulse Rate 79 84 81 Respiratory Rate 17 18 17 Blood Pressure 160/74 H 177/79 H Pulse Oximetry 97 98 97 08/16/18 13:00 08/16/18 13:58 08/16/18 14:00 Temperature Pulse Rate 82 78 88 Respiratory Rate 18 16 15 Blood Pressure 175/93 H Pulse Oximetry 98 96 97 08/16/18 14:54 08/16/18 14:58 08/16/18 15:00 Temperature Pulse Rate 79 75 74 Respiratory Rate 17 17 16 Blood Pressure 167/84 H 161/73 H Pulse Oximetry 95 95 97 08/16/18 15:58 08/16/18 16:00 08/16/18 16:23 Temperature Pulse Rate 82 84 Respiratory Rate 20 18 3 L Blood Pressure 154/76 H Pulse Oximetry 98 99 08/16/18 16:58 08/16/18 17:00 08/16/18 17:58 Temperature 98 F Pulse Rate 83 83 78 Respiratory Rate 24 16 86 H Blood Pressure 163/87 H 131/70 Pulse Oximetry 98 99 96 08/16/18 18:00 08/16/18 18:58 08/16/18 19:00 Temperature Pulse Rate 88 72 79 Respiratory Rate 114 H 72 H 73 H Blood Pressure 165/85 H Pulse Oximetry 95 96 94 L 08/16/18 19:58 08/16/18 20:00 08/16/18 20:58 Temperature 98.1 F Pulse Rate 71 69 71 Respiratory Rate 49 H 14 63 H Blood Pressure 164/77 H 163/79 H Pulse Oximetry 96 97 94 L 08/16/18 21:00 08/16/18 21:58 08/16/18 22:00 Temperature Pulse Rate 69 80 76 Respiratory Rate 72 H 64 H 63 H Blood Pressure 177/80 H Pulse Oximetry 96 97 98 08/16/18 22:58 08/16/18 23:00 08/16/18 23:58 Temperature Pulse Rate 72 76 71 Respiratory Rate 68 H 82 H 68 H Blood Pressure 162/69 H 158/77 H Pulse Oximetry 94 L 94 L 97 08/17/18 00:00 08/17/18 00:17 08/17/18 00:58 Temperature 98.3 F Pulse Rate 63 69 68 Respiratory Rate 14 69 H 73 H Blood Pressure 166/92 H 157/81 H Pulse Oximetry 96 95 93 L 08/17/18 01:00 08/17/18 01:33 08/17/18 01:58 Temperature Pulse Rate 75 82 65 Respiratory Rate 75 H 84 H 76 H Blood Pressure 166/79 H 162/101 H Pulse Oximetry 89 L 92 L 97 08/17/18 02:00 08/17/18 02:01 08/17/18 02:58 Temperature Pulse Rate 75 82 68 Respiratory Rate 70 H 69 H 81 H Blood Pressure 154/74 H 160/95 H Pulse Oximetry 86 L 96 93 L 08/17/18 03:00 08/17/18 03:55 08/17/18 04:00 Temperature 98 F Pulse Rate 76 66 Respiratory Rate 71 H 61 H Blood Pressure Pulse Oximetry 90 L 95 08/17/18 04:07 08/17/18 04:58 08/17/18 05:00 Temperature 98.0 F Pulse Rate 63 62 66 Respiratory Rate 80 H 72 H 68 H Blood Pressure 161/80 H 187/87 H Pulse Oximetry 94 L 97 95 08/17/18 05:58 08/17/18 06:00 08/17/18 06:58 Temperature Pulse Rate 67 74 73 Respiratory Rate 62 H 83 H 68 H Blood Pressure 182/83 H 178/86 H 151/100 H Pulse Oximetry 96 98 99 08/17/18 07:00 08/17/18 07:04 08/17/18 07:58 Temperature 97.7 F Pulse Rate 73 67 68 Respiratory Rate 77 H 99 H 19 Blood Pressure 150/87 H 164/99 H Pulse Oximetry 96 99 98 08/17/18 08:00 08/17/18 08:58 08/17/18 09:00 Temperature Pulse Rate 66 73 72 Respiratory Rate 25 H 17 15 Blood Pressure 176/91 H Pulse Oximetry 99 96 96 08/17/18 09:13 08/17/18 09:51 08/17/18 09:52 Temperature Pulse Rate 72 97 H 92 H Respiratory Rate 14 28 H 22 Blood Pressure 169/95 H 180/101 H 185/89 H Pulse Oximetry 98 97 98 08/17/18 09:58 08/17/18 10:00 Temperature 97.7 F Pulse Rate 86 89 Respiratory Rate 15 17 Blood Pressure 153/80 H Pulse Oximetry 100 98 Intake & Output 08/16/18 08/17/18 08/17/18 18:59 06:59 18:59 Intake Total 300 / 300 1000 / 1000 Output Total 1000 / 1000 Balance -700 / -700 1000 / 1000 Weight 84.2 kg Intake: IV 100 / 100 1000 / 1000 NS Inj 1,000 ML @ 50 mls/hr IV. 1000 / 1000 CONT .Q20H LURDES Rx#:[id number] Ofirmev Inj 1,000 mg In 100 ml 100 / 100 @ 400 mls/hr IV.SIG Q6H PRN Rx# :[id number] Oral 200 / 200 Output: Urine 1000 / 1000 Other: # Voids 5 5 Date of Last Bowel Movement 08/15/18 08/15/18 08/15/18 Result Diagrams: 08/16/18 03:34 08/17/18 04:55 Objective Remarks: Narrative: GENERAL: Well-nourished, well-developed patient who is in bed, conversant. SKIN: Warm and dry. HEAD: Normocephalic. +right periorbital ecchymosis. There is approximately 2 cm linear laceration lateral to right eyelid where dermal adhesive has been applied. Some swelling under scalp right side EYES: Pupils equal and round, 2 mm and reactive to 1. No conjunctival icterus. No injection or drainage. ENT: No nasal bleeding or discharge. Mucous membranes pink and moist. NECK: Trachea midline. Airway is widely patent, no obstructive noises CARDIOVASCULAR: Irregularly irregular, atrial fibrillation with rate in the 80s on the monitor.. No murmurs rubs or gallops. No JVD RESPIRATORY: Comfortable respiratory pattern. Clear to auscultation. Breath sounds equal bilaterally. GASTROINTESTINAL: Abdomen soft, non-tender, nondistended. Bowel sounds present. No guarding. MUSCULOSKELETAL: Extremities without clubbing, cyanosis, or edema. No obvious deformities. Warm, well-perfused. NEUROLOGICAL: Awake and alert. No obvious cranial nerve deficits, extraocular movements intact. Tongue protrusion midline. No facial droop. Moves 4 limbs to command. Conversant. Assessment and Plan - Assessment and Plan Plan: NEURO: R Subdural hematoma with midline shift. Fall History of stroke Chronic anticoagulation with Xarelto due to history of stroke/ A fib Mild dementia Prior history of alcohol dependence Admit to [facility] for neurochecks Follow-up CT brain in a.m. Keppra 500 mg p.o. twice daily for seizure prophylaxis per Dr. Guallpa recommendation. Hold rivaroxaban and aspirin. Hold off on K Centra at this time, may require if early surgery as needed. Monitor for signs and symptoms of alcohol withdrawal. Thiamine/multivitamin daily Peripheral neuropathy Continue gabapentin 100 mg p.o. twice daily RESP: On RA CV: Hypertension Hyperlipidemia Atrial fibrillation Labetalol/hydralazine as needed for systolic blood pressure greater than 160. Nicardipine if needed. Continue atorvastatin 80 mg p.o. daily, metoprolol tartrate 12.5 mg p.o. daily, Lasix 20 mg p.o. daily GI: GERD Heart healthy diet FEN/RENAL: Monitor electrolytes and replace as indicated per ICU electrolyte replacement protocol ID: Monitor for signs and symptoms of infection HEME: Chronic anticoagulation with rivaroxaban Iron deficiency Erythrocyte macrocytosis Continue ferrous sulfate 325 mg p.o. daily. ENDO: Hypothyroidism Continue Synthroid 200 mcg p.o. daily PROPH: SCDs for DVT prophylaxis. Avoid pharmacologic DVT prophylaxis due to subdural hematoma. Protonix for stress ulcer prophylaxis and history of GERD ACCESS: Peripheral IV providing adequate access at this time. Patient and her sister have been updated at bedside regarding plan of care. Patient is critically ill with subdural hematoma on NOAC anticoagulation and antiplatelet therapy and is at risk for further deterioration including expansion of subdural hematoma requiring emergent crani and/or resulting in loss of airway protection. Hypertension is poorly controlled and in need of urgent management. It may be best for her to go to a SNF rather than home. Will discuss with case management.
--- NOTE | 2018-08-17 14:42 | P.PNNS ---
Subjective Interval history: Still not eating and has nausea. Intermittent elevations of BP. Physical Exam Vital signs: Vital Signs 08/16/18 14:54 08/16/18 14:58 08/16/18 15:00 Temperature Pulse Rate 79 75 74 Respiratory Rate 17 17 16 Blood Pressure 167/84 H 161/73 H Pulse Oximetry 95 95 97 08/16/18 15:58 08/16/18 16:00 08/16/18 16:23 Temperature Pulse Rate 82 84 Respiratory Rate 20 18 3 L Blood Pressure 154/76 H Pulse Oximetry 98 99 08/16/18 16:58 08/16/18 17:00 08/16/18 17:58 Temperature 98 F Pulse Rate 83 83 78 Respiratory Rate 24 16 86 H Blood Pressure 163/87 H 131/70 Pulse Oximetry 98 99 96 08/16/18 18:00 08/16/18 18:58 08/16/18 19:00 Temperature Pulse Rate 88 72 79 Respiratory Rate 114 H 72 H 73 H Blood Pressure 165/85 H Pulse Oximetry 95 96 94 L 08/16/18 19:58 08/16/18 20:00 08/16/18 20:58 Temperature 98.1 F Pulse Rate 71 69 71 Respiratory Rate 49 H 14 63 H Blood Pressure 164/77 H 163/79 H Pulse Oximetry 96 97 94 L 08/16/18 21:00 08/16/18 21:58 08/16/18 22:00 Temperature Pulse Rate 69 80 76 Respiratory Rate 72 H 64 H 63 H Blood Pressure 177/80 H Pulse Oximetry 96 97 98 08/16/18 22:58 08/16/18 23:00 08/16/18 23:58 Temperature Pulse Rate 72 76 71 Respiratory Rate 68 H 82 H 68 H Blood Pressure 162/69 H 158/77 H Pulse Oximetry 94 L 94 L 97 08/17/18 00:00 08/17/18 00:17 08/17/18 00:58 Temperature 98.3 F Pulse Rate 63 69 68 Respiratory Rate 14 69 H 73 H Blood Pressure 166/92 H 157/81 H Pulse Oximetry 96 95 93 L 08/17/18 01:00 08/17/18 01:33 08/17/18 01:58 Temperature Pulse Rate 75 82 65 Respiratory Rate 75 H 84 H 76 H Blood Pressure 166/79 H 162/101 H Pulse Oximetry 89 L 92 L 97 08/17/18 02:00 08/17/18 02:01 08/17/18 02:58 Temperature Pulse Rate 75 82 68 Respiratory Rate 70 H 69 H 81 H Blood Pressure 154/74 H 160/95 H Pulse Oximetry 86 L 96 93 L 08/17/18 03:00 08/17/18 03:55 08/17/18 04:00 Temperature 98 F Pulse Rate 76 66 Respiratory Rate 71 H 61 H Blood Pressure Pulse Oximetry 90 L 95 08/17/18 04:07 08/17/18 04:58 08/17/18 05:00 Temperature 98.0 F Pulse Rate 63 62 66 Respiratory Rate 80 H 72 H 68 H Blood Pressure 161/80 H 187/87 H Pulse Oximetry 94 L 97 95 08/17/18 05:58 08/17/18 06:00 08/17/18 06:58 Temperature Pulse Rate 67 74 73 Respiratory Rate 62 H 83 H 68 H Blood Pressure 182/83 H 178/86 H 151/100 H Pulse Oximetry 96 98 99 08/17/18 07:00 08/17/18 07:04 08/17/18 07:58 Temperature 97.7 F Pulse Rate 73 67 68 Respiratory Rate 77 H 99 H 19 Blood Pressure 150/87 H 164/99 H Pulse Oximetry 96 99 98 08/17/18 08:00 08/17/18 08:58 08/17/18 09:00 Temperature Pulse Rate 66 73 72 Respiratory Rate 25 H 17 15 Blood Pressure 176/91 H Pulse Oximetry 99 96 96 08/17/18 09:13 08/17/18 09:51 08/17/18 09:52 Temperature Pulse Rate 72 97 H 92 H Respiratory Rate 14 28 H 22 Blood Pressure 169/95 H 180/101 H 185/89 H Pulse Oximetry 98 97 98 08/17/18 09:58 08/17/18 10:00 Temperature 97.7 F Pulse Rate 86 89 Respiratory Rate 15 17 Blood Pressure 153/80 H Pulse Oximetry 100 98 Intake & Output 08/16/18 08/17/18 08/17/18 18:59 06:59 18:59 Intake Total 300 / 300 1000 / 1000 Output Total 1000 / 1000 Balance -700 / -700 1000 / 1000 Weight 84.2 kg Intake: IV 100 / 100 1000 / 1000 NS Inj 1,000 ML @ 50 mls/hr IV. 1000 / 1000 CONT .Q20H LURDES Rx#:[id number] Ofirmev Inj 1,000 mg In 100 ml 100 / 100 @ 400 mls/hr IV.SIG Q6H PRN Rx# :[id number] Oral 200 / 200 Output: Urine 1000 / 1000 Other: # Voids 5 5 Date of Last Bowel Movement 08/15/18 08/15/18 08/15/18 Narrative: A&O x 3 CN II-XII intact Motor 5/5 UE/LE Assessment and Plan - Plan 73yoF with acute SDH small with small midline shift, neurologically intact, last dose of Xarelto 7pm on 08/14 required due to a fib / recent stroke Plan: 08/15 Admit ICU with neuro checks Keppra 500mg BID for sz prophylaxis (no history of seizures) Repeat CT in AM ~5-6AM Not planning to reverse Xarelto but will need to hold ~>2 weeks. Goal not to progress to a craniotomy, more likely burrholes in 1 week vs. nothing necessary if blood resorbs. Patient and her daughter, Dr. Small and Dr. Suarez werein agreement 08/[address] stable. Will try Zofran, Phenergan for nausea. Advance diet. Will try stronger pain medication for headache Tramadol / Codeine? 08/[address] Will likely need SNF for short term. Consider metoprolol increase for elevated BP if sustained. -
[2018-08-17] MEDS: Acetaminophen 325 MG Tablet PO PRN (14:56)
[2018-08-17] MEDS: Lisinopril 5 MG Tablet PO SCH (19:41)
[2018-08-17] MEDS: Sod Chloride 0.9% Inj 1,000 ML IV.CONT SCH (19:41)
[2018-08-18] MEDS: hydrALAZINE HCl Inj 20 MG/ML Vial IV.PUSH PRN (01:07)
[2018-08-18] MEDS: Chlorhexidine Gluconate 2% 1 Pack (2 Cloths) TOPICAL SCH (03:27)
[2018-08-18] MEDS: Senna/Docusate Sodium 8.6/50 MG Tablet PO SCH ×2 (09:03→20:10)
[2018-08-18] MEDS: Lisinopril 5 MG Tablet PO SCH (09:03)
[2018-08-18] MEDS: Gabapentin 100 MG Capsule PO SCH ×2 (09:03→20:10)
[2018-08-18] MEDS: Ferrous Sulfate 325 MG Tablet PO SCH (09:03)
[2018-08-18] MEDS: levETIRAcetam 500 MG Tablet PO SCH ×2 (09:03→20:10)
[2018-08-18] MEDS: Furosemide 20 MG Tablet PO SCH (09:03)
[2018-08-18] MEDS: Metoprolol Tartrate 25 MG Tablet PO SCH (09:05)
[2018-08-18] MEDS ORDERED: Magnesium Sulfate Inj 2 GM in Sodium Chlor 0.9% Inj 96 ML IV.SIG ONE (10:00)
--- NOTE | 2018-08-18 10:21 | CT ---
EXAM DATE: 08/18/2018 10:15 AM EDT AGE/SEX: 73 years / Female INDICATIONS: Follow up intracerebral hemorrhage. CLINICAL DATA: This is the patient's subsequent encounter. Patient reports that signs and symptoms h ave been present for 2 days and indicates a pain score of 4/10. MEDICAL/SURGICAL HISTORY: Hypertension. Dementia. Cerebrovascular disease. None. RADIATION DOSE: 39.34 CTDI (mGy) COMPARISON: [facility] – [place], CT HEAD W/O CONTRAST, 08/16/2018. . TECHNIQUE: CT of the head without contrast. Using automated exposure control and adjustment of the mA and/or kV according to patient size, radiation dose was kept as low as reasonably achievable to ob tain optimal diagnostic quality images. DICOM format image data is available electronically for revi ew and comparison. FINDINGS: Again seen is the right subdural hematoma extending from apex to vertex. This measures 4 mm widest po int. There is minimal effacement of the cortical sulci. Small amount of blood is layering along the r ight tentorium. There is moderate central and cortical atrophy. Ventricular size is appropriate. There is no parenchy mal hemorrhage. Posterior fossa is unremarkable. CONCLUSION: 1. Stable right subdural hematoma with minimal effacement of the cortical sulci. . Electronically signed by: Sami Broderick MD 08/18/2018 10:20 AM EDT
[2018-08-18] MEDS: Potassium Chlor 10 mEq Premix 10 MEQ/100 ML PIGGYBACK IV.SIG SCH ×6 (10:33→17:14)
--- NOTE | 2018-08-18 10:56 | P.PNIM ---
Subjective Interval history: 73-year-old left-hand dominant female with past medical history of hypertension, chronic atrial fibrillation on anticoagulation with Xarelto, hyperlipidemia, prior embolic strokes, prior history of EtOH abuse, reported mild dementia. Her sister lives with her and they were walking in the park at around 3:30 PM on 08/15. Patient usually ambulates with a walker but she had handed that off to her sister and immediately thereafter tripped over the wheel stop and fell hitting the right side of her head on concrete. She had no LOC or witnessed seizure activity. She wanted to go home but she had a headache so her sister urged her to be evaluated. No nausea, vomiting, visual changes, neck pain. Workup in the ED included CT brain with ~7-8 mm right subdural with 4-5 mm of right to left midline shift. There is evidence of prior strokes in her right occipital lobe, left cerebellum. Patient has had a prior embolic stroke in June 2018 in the setting of A fib and was prescribed low-dose Xarelto after that. About a week and a half ago she had followed up with Dr. Castillo and xarelto had been increased to 20 mg p.o. daily. Her last dose of Xarelto was at 19:00 on 08/14. Unfortunately, her last stroke occurred after xarelto was held following surgery for abdominal abscess. Will obviously need to hold xarelto currently, however will defer reversal with Kcentra at this time per discussion with Dr. Guallpa. Discussed risk/benefits with patient and her sister. 08/16: Traumatic right subdural hematoma sustained in fall last evening while on Xarelto therapy for atrial fibrillation. Considerable ecchymosis persists in the right periorbital region. Neurologic exam unchanged from last evening. Repeat CAT scan of the head is pending. No seizures or vomiting. 08/17: Continues to improve but chronically weak. Will have case management assess home situation. It may be best for this woman to be in a intermediate facility. No anticoagulation for at least 2 weeks. 08-18 transferred to our service today had ct of head today which is stable pt and ot to eval and treat move out of icu no new complaints no sob, no chest pain, no palpitations Transfer out of ICU Physical Exam Vital signs: Vital Signs 08/17/18 10:58 08/17/18 11:00 08/17/18 11:58 Temperature 98 F Pulse Rate 84 84 79 Respiratory Rate 22 17 28 H Blood Pressure 170/79 H 168/91 H Pulse Oximetry 99 98 99 08/17/18 12:00 08/17/18 12:58 08/17/18 13:00 Temperature Pulse Rate 79 83 81 Respiratory Rate 22 16 15 Blood Pressure 176/89 H Pulse Oximetry 98 99 98 08/17/18 13:58 08/17/18 14:00 08/17/18 14:58 Temperature Pulse Rate 82 87 83 Respiratory Rate 17 15 47 H Blood Pressure 186/99 H 181/86 H Pulse Oximetry 98 98 98 08/17/18 15:00 08/17/18 15:58 08/17/18 16:00 Temperature Pulse Rate 82 82 89 Respiratory Rate 41 H 46 H 36 H Blood Pressure 205/91 H 192/89 H Pulse Oximetry 98 97 99 08/17/18 16:21 08/17/18 16:58 08/17/18 17:00 Temperature Pulse Rate 94 H 97 H 88 Respiratory Rate 34 H 40 H 33 H Blood Pressure 168/77 H 162/85 H Pulse Oximetry 98 98 97 08/17/18 17:58 08/17/18 18:00 08/17/18 18:58 Temperature Pulse Rate 90 90 91 H Respiratory Rate 21 36 H 23 Blood Pressure 190/95 H 182/88 H Pulse Oximetry 99 98 98 08/17/18 19:00 08/17/18 19:58 08/17/18 20:00 Temperature 97.7 F Pulse Rate 93 H 97 H 98 H Respiratory Rate 19 42 H 22 Blood Pressure 204/92 H Pulse Oximetry 99 98 98 08/17/18 20:16 08/17/18 20:45 08/17/18 20:58 Temperature Pulse Rate 90 91 H 90 Respiratory Rate 28 H 33 H 32 H Blood Pressure 166/89 H 159/81 H 165/97 H Pulse Oximetry 97 98 97 08/17/18 21:00 08/17/18 21:58 08/17/18 22:00 Temperature Pulse Rate 92 H 95 H 93 H Respiratory Rate 40 H 23 22 Blood Pressure 166/89 H Pulse Oximetry 96 98 97 08/17/18 22:17 08/17/18 22:58 08/17/18 23:00 Temperature Pulse Rate 102 H 98 H 86 Respiratory Rate 73 H 29 H 17 Blood Pressure 165/86 H 177/87 H Pulse Oximetry 96 99 98 08/17/18 23:58 08/18/18 00:00 08/18/18 00:58 Temperature 97.9 F Pulse Rate 91 H 86 85 Respiratory Rate 27 H 18 19 Blood Pressure 156/77 H 167/130 H Pulse Oximetry 96 95 97 08/18/18 01:00 08/18/18 01:02 08/18/18 01:24 Temperature Pulse Rate 82 92 H 97 H Respiratory Rate 19 16 27 H Blood Pressure 171/81 H 149/82 H Pulse Oximetry 96 98 97 08/18/18 01:58 08/18/18 02:00 08/18/18 02:12 Temperature Pulse Rate 83 87 84 Respiratory Rate 30 H 40 H 45 H Blood Pressure 149/81 H 150/86 H Pulse Oximetry 96 97 96 08/18/18 02:58 08/18/18 03:00 08/18/18 03:58 Temperature Pulse Rate 80 78 92 H Respiratory Rate 15 15 10 L Blood Pressure 124/64 123/68 Pulse Oximetry 97 98 98 08/18/18 04:00 08/18/18 04:58 08/18/18 05:00 Temperature 97.6 F Pulse Rate 86 85 82 Respiratory Rate 11 L 22 14 Blood Pressure 158/93 H Pulse Oximetry 97 96 97 08/18/18 05:17 08/18/18 05:59 08/18/18 06:00 Temperature Pulse Rate 90 90 Respiratory Rate 14 16 31 H Blood Pressure 160/96 H Pulse Oximetry 98 96 08/18/18 07:00 08/18/18 07:03 08/18/18 07:58 Temperature Pulse Rate 89 80 69 Respiratory Rate 51 H 19 13 Blood Pressure 148/79 H 155/74 H Pulse Oximetry 91 L 98 97 08/18/18 08:00 08/18/18 08:58 08/18/18 09:00 Temperature Pulse Rate 72 72 82 Respiratory Rate 14 26 H 19 Blood Pressure 151/74 H Pulse Oximetry 97 99 99 08/18/18 09:58 08/18/18 10:00 Temperature Pulse Rate 71 75 Respiratory Rate 19 14 Blood Pressure 150/92 H Pulse Oximetry 97 98 Intake & Output 08/17/18 08/18/18 08/18/18 18:59 06:59 18:59 Intake Total 1100 / 1100 200 / 200 Output Total 600 / 600 550 / 550 Balance 500 / 500 -350 / -350 Weight 82.8 kg Intake: IV 1100 / 1100 200 / 200 NS Inj 1,000 ML @ 50 mls/hr IV. 1000 / 1000 CONT .Q20H LURDES Rx#:[id number] Ofirmev Inj 1,000 mg In 100 ml 200 / 200 @ 400 mls/hr IV.SIG Q6H PRN Rx# :[id number] Output: Urine 600 / 600 550 / 550 Other: # Voids 4 3 Date of Last Bowel Movement 08/15/18 08/15/18 08/15/18 Narrative: GENERAL: Awake alert and oriented x3 talkative and cooperative SKIN: Warm and dry. HEAD: Atraumatic. Normocephalic. EYES: Pupils equal and round. No scleral icterus. No injection or drainage. Ecchymoses and bruising around the right orbital area with a repair lateral to the right eye ENT: No nasal bleeding or discharge. Mucous membranes pink and moist. NECK: Trachea midline. No JVD. Supple CARDIOVASCULAR: IRRegular rate and rhythm. S1-S2 no S3 or S4 RESPIRATORY: No accessory muscle use. Clear to auscultation. Breath sounds equal bilaterally. GASTROINTESTINAL: Abdomen soft, non-tender, nondistended. Hepatic and splenic margins not palpable. MUSCULOSKELETAL: Extremities without clubbing, cyanosis, or edema. No obvious deformities. NEUROLOGICAL: Awake and alert. No obvious cranial nerve deficits. Motor grossly within normal limits. Five out of 5 muscle strength in the arms and legs. Normal speech. PSYCHIATRIC: Appropriate mood and affect; insight and judgment normal. Results - Labs CBC & Chem 7: 08/16/18 03:34 08/18/18 05:36 Laboratory Results - last 24 hr 08/18/18 05:36 Potassium 3.0 L - Imaging Impressions Head CT 08/18/18 00:00 CONCLUSION: 1. Stable right subdural hematoma with minimal effacement of the cortical sulci. . Assessment and Plan - Plan NEURO: R Subdural hematoma with midline shift. Fall History of stroke Chronic anticoagulation with Xarelto due to history of stroke/ A fib--on hold Mild dementia Prior history of alcohol dependence Admit to [facility] for neurochecks Follow-up CT brain in a.m.--remains stable Keppra 500 mg p.o. twice daily for seizure prophylaxis per Dr. Guallpa recommendation. Hold rivaroxaban and aspirin. Hold off on K Centra at this time, may require if early surgery as needed. Monitor for signs and symptoms of alcohol withdrawal. Thiamine/multivitamin daily Peripheral neuropathy Continue gabapentin 100 mg p.o. twice daily RESP: On RA CV: Hypertension Hyperlipidemia Atrial fibrillation Labetalol/hydralazine as needed for systolic blood pressure greater than 160. Nicardipine if needed. Continue atorvastatin 80 mg p.o. daily, metoprolol tartrate 12.5 mg p.o. daily, Lasix 20 mg p.o. daily GI: GERD Heart healthy diet FEN/RENAL: Monitor electrolytes and replace as indicated per ICU electrolyte replacement protocol ID: Monitor for signs and symptoms of infection HEME: Chronic anticoagulation with rivaroxaban Iron deficiency Erythrocyte macrocytosis Continue ferrous sulfate 325 mg p.o. daily. ENDO: Hypothyroidism Continue Synthroid 200 mcg p.o. daily PROPH: SCDs for DVT prophylaxis. Avoid pharmacologic DVT prophylaxis due to subdural hematoma. Protonix for stress ulcer prophylaxis and history of GERD ACCESS: Peripheral IV providing adequate access at this time. Patient and her sister have been updated at bedside regarding plan of care. Patient is critically ill with subdural hematoma on NOAC anticoagulation and antiplatelet therapy and is at risk for further deterioration including expansion of subdural hematoma requiring emergent crani and/or resulting in loss of airway protection. Hypertension is poorly controlled and in need of urgent management. It may be best for her to go to a SNF rather than home. Will discuss with case management. Code Status: Full code Discussed Condition With: Discussed with RN and patient Discharge Planning: Will probably need SNF at discharge
[2018-08-18] MEDS: Sod Chloride 0.9% Inj 1,000 ML IV.CONT SCH ×2 (11:44→14:44)
--- NOTE | 2018-08-18 18:06 | P.PNNS ---
Subjective Interval history: Pt awake and alert. Denies headache. No n/v. Denies weakness other than some limitation in bilateral shoulders from arthritis. <Vicente Lemos - Last Filed: 08/19/18 10:10> Physical Exam Vital signs: Vital Signs 08/17/18 18:58 08/17/18 19:00 08/17/18 19:58 Temperature Pulse Rate 91 H 93 H 97 H Respiratory Rate 23 19 42 H Blood Pressure 182/88 H 204/92 H Pulse Oximetry 98 99 98 08/17/18 20:00 08/17/18 20:16 08/17/18 20:45 Temperature 97.7 F Pulse Rate 98 H 90 91 H Respiratory Rate 22 28 H 33 H Blood Pressure 166/89 H 159/81 H Pulse Oximetry 98 97 98 08/17/18 20:58 08/17/18 21:00 08/17/18 21:58 Temperature Pulse Rate 90 92 H 95 H Respiratory Rate 32 H 40 H 23 Blood Pressure 165/97 H 166/89 H Pulse Oximetry 97 96 98 08/17/18 22:00 08/17/18 22:17 08/17/18 22:58 Temperature Pulse Rate 93 H 102 H 98 H Respiratory Rate 22 73 H 29 H Blood Pressure 165/86 H 177/87 H Pulse Oximetry 97 96 99 08/17/18 23:00 08/17/18 23:58 08/18/18 00:00 Temperature 97.9 F Pulse Rate 86 91 H 86 Respiratory Rate 17 27 H 18 Blood Pressure 156/77 H Pulse Oximetry 98 96 95 08/18/18 00:58 08/18/18 01:00 08/18/18 01:02 Temperature Pulse Rate 85 82 92 H Respiratory Rate 19 19 16 Blood Pressure 167/130 H 171/81 H Pulse Oximetry 97 96 98 08/18/18 01:24 08/18/18 01:58 08/18/18 02:00 Temperature Pulse Rate 97 H 83 87 Respiratory Rate 27 H 30 H 40 H Blood Pressure 149/82 H 149/81 H Pulse Oximetry 97 96 97 08/18/18 02:12 08/18/18 02:58 08/18/18 03:00 Temperature Pulse Rate 84 80 78 Respiratory Rate 45 H 15 15 Blood Pressure 150/86 H 124/64 Pulse Oximetry 96 97 98 08/18/18 03:58 08/18/18 04:00 08/18/18 04:58 Temperature 97.6 F Pulse Rate 92 H 86 85 Respiratory Rate 10 L 11 L 22 Blood Pressure 123/68 158/93 H Pulse Oximetry 98 97 96 08/18/18 05:00 08/18/18 05:17 08/18/18 05:59 Temperature Pulse Rate 82 90 Respiratory Rate 14 14 16 Blood Pressure 160/96 H Pulse Oximetry 97 98 08/18/18 06:00 08/18/18 07:00 08/18/18 07:03 Temperature Pulse Rate 90 89 80 Respiratory Rate 31 H 51 H 19 Blood Pressure 148/79 H Pulse Oximetry 96 91 L 98 08/18/18 07:58 08/18/18 08:00 08/18/18 08:58 Temperature Pulse Rate 69 72 72 Respiratory Rate 13 14 26 H Blood Pressure 155/74 H 151/74 H Pulse Oximetry 97 97 99 08/18/18 09:00 08/18/18 09:58 08/18/18 10:00 Temperature Pulse Rate 82 71 75 Respiratory Rate 19 19 14 Blood Pressure 150/92 H Pulse Oximetry 99 97 98 08/18/18 10:58 08/18/18 11:00 08/18/18 11:08 Temperature Pulse Rate 70 69 74 Respiratory Rate 17 15 23 Blood Pressure 179/84 H 161/91 H Pulse Oximetry 97 98 97 08/18/18 11:58 08/18/18 12:00 08/18/18 12:58 Temperature 98.5 F Pulse Rate 70 81 71 Respiratory Rate 18 22 Blood Pressure 156/76 H 124/62 169/84 H Pulse Oximetry 99 98 99 08/18/18 13:00 08/18/18 13:34 08/18/18 13:58 Temperature Pulse Rate 70 71 67 Respiratory Rate 14 15 18 Blood Pressure 126/59 L 117/58 L Pulse Oximetry 100 96 96 08/18/18 14:00 08/18/18 14:58 08/18/18 15:00 Temperature Pulse Rate 64 64 71 Respiratory Rate 15 14 23 Blood Pressure 122/59 L 100/55 L Pulse Oximetry 92 L 97 95 08/18/18 15:58 08/18/18 16:00 08/18/18 16:58 Temperature Pulse Rate 74 73 68 Respiratory Rate 18 21 14 Blood Pressure 119/61 119/57 L Pulse Oximetry 96 94 L 97 10/29/18 17:00 Temperature Pulse Rate 70 Respiratory Rate 18 Blood Pressure Pulse Oximetry 96 Intake & Output 08/17/18 08/18/18 08/18/18 18:59 06:59 18:59 Intake Total 1100 / 1100 200 / 200 1600 / 1600 Output Total 600 / 600 550 / 550 Balance 500 / 500 -350 / -350 1600 / 1600 Weight 82.8 kg Intake: IV 1100 / 1100 200 / 200 1600 / 1600 NS Inj 1,000 ML @ 50 mls/hr IV. 1000 / 1000 1000 / 1000 CONT .Q20H LURDES Rx#:[id number] Ofirmev Inj 1,000 mg In 100 ml 200 / 200 @ 400 mls/hr IV.SIG Q6H PRN Rx# :[id number] Magnesium Sulfate Inj 2 GM In 100 / 100 NS Inj 96 ML @ 50 mls/hr IV.SIG ONCE ONE Rx#:[id number] KCl 10 mEq Premix Inj 10 meq In 500 / 500 100 ml @ 100 mls/hr IV.SIG Q1H LURDES Rx#:[id number] Output: Urine 600 / 600 550 / 550 Other: # Voids 4 3 Date of Last Bowel Movement 08/15/18 08/15/18 08/15/18 <Abdias Wilhelm - Last Filed: 08/18/18 18:37> Vital signs: Vital Signs 08/17/18 18:00 08/17/18 18:58 08/17/18 19:00 Temperature Pulse Rate 90 91 H 93 H Respiratory Rate 36 H 23 19 Blood Pressure 182/88 H Pulse Oximetry 98 98 99 08/17/18 19:58 08/17/18 20:00 08/17/18 20:16 Temperature 97.7 F Pulse Rate 97 H 98 H 90 Respiratory Rate 42 H 22 28 H Blood Pressure 204/92 H 166/89 H Pulse Oximetry 98 98 97 08/17/18 20:45 08/17/18 20:58 08/17/18 21:00 Temperature Pulse Rate 91 H 90 92 H Respiratory Rate 33 H 32 H 40 H Blood Pressure 159/81 H 165/97 H Pulse Oximetry 98 97 96 08/17/18 21:58 08/17/18 22:00 08/17/18 22:17 Temperature Pulse Rate 95 H 93 H 102 H Respiratory Rate 23 22 73 H Blood Pressure 166/89 H 165/86 H Pulse Oximetry 98 97 96 08/17/18 22:58 08/17/18 23:00 08/17/18 23:58 Temperature Pulse Rate 98 H 86 91 H Respiratory Rate 29 H 17 27 H Blood Pressure 177/87 H 156/77 H Pulse Oximetry 99 98 96 08/18/18 00:00 08/18/18 00:58 08/18/18 01:00 Temperature 97.9 F Pulse Rate 86 85 82 Respiratory Rate 18 19 19 Blood Pressure 167/130 H Pulse Oximetry 95 97 96 08/18/18 01:02 08/18/18 01:24 08/18/18 01:58 Temperature Pulse Rate 92 H 97 H 83 Respiratory Rate 16 27 H 30 H Blood Pressure 171/81 H 149/82 H 149/81 H Pulse Oximetry 98 97 96 08/18/18 02:00 08/18/18 02:12 08/18/18 02:58 Temperature Pulse Rate 87 84 80 Respiratory Rate 40 H 45 H 15 Blood Pressure 150/86 H 124/64 Pulse Oximetry 97 96 97 08/18/18 03:00 08/18/18 03:58 08/18/18 04:00 Temperature 97.6 F Pulse Rate 78 92 H 86 Respiratory Rate 15 10 L 11 L Blood Pressure 123/68 Pulse Oximetry 98 98 97 08/18/18 04:58 08/18/18 05:00 08/18/18 05:17 Temperature Pulse Rate 85 82 Respiratory Rate 22 14 14 Blood Pressure 158/93 H Pulse Oximetry 96 97 08/18/18 05:59 08/18/18 06:00 08/18/18 07:00 Temperature Pulse Rate 90 90 89 Respiratory Rate 16 31 H 51 H Blood Pressure 160/96 H Pulse Oximetry 98 96 91 L 08/18/18 07:03 08/18/18 07:58 08/18/18 08:00 Temperature Pulse Rate 80 69 72 Respiratory Rate 19 13 14 Blood Pressure 148/79 H 155/74 H Pulse Oximetry 98 97 97 08/18/18 08:58 08/18/18 09:00 08/18/18 09:58 Temperature Pulse Rate 72 82 71 Respiratory Rate 26 H 19 19 Blood Pressure 151/74 H 150/92 H Pulse Oximetry 99 99 97 08/18/18 10:00 08/18/18 10:58 08/18/18 11:00 Temperature Pulse Rate 75 70 69 Respiratory Rate 14 17 15 Blood Pressure 179/84 H Pulse Oximetry 98 97 98 08/18/18 11:08 08/18/18 11:58 08/18/18 12:00 Temperature 98.5 F Pulse Rate 74 70 81 Respiratory Rate 23 18 Blood Pressure 161/91 H 156/76 H 124/62 Pulse Oximetry 97 99 98 08/18/18 12:58 08/18/18 13:00 08/18/18 13:34 Temperature Pulse Rate 71 70 71 Respiratory Rate 22 14 15 Blood Pressure 169/84 H 126/59 L Pulse Oximetry 99 100 96 08/18/18 13:58 08/18/18 14:00 08/18/18 14:58 Temperature Pulse Rate 67 64 64 Respiratory Rate 18 15 14 Blood Pressure 117/58 L 122/59 L 100/55 L Pulse Oximetry 96 92 L 97 08/18/18 15:00 08/18/18 15:58 08/18/18 16:00 Temperature Pulse Rate 71 74 73 Respiratory Rate 23 18 21 Blood Pressure 119/61 Pulse Oximetry 95 96 94 L 08/18/18 16:58 08/18/18 17:00 Temperature Pulse Rate 68 70 Respiratory Rate 14 18 Blood Pressure 119/57 L Pulse Oximetry 97 96 Intake & Output 08/17/18 08/18/18 08/18/18 18:59 06:59 18:59 Intake Total 1100 / 1100 200 / 200 1600 / 1600 Output Total 600 / 600 550 / 550 Balance 500 / 500 -350 / -350 1600 / 1600 Weight 82.8 kg Intake: IV 1100 / 1100 200 / 200 1600 / 1600 NS Inj 1,000 ML @ 50 mls/hr IV. 1000 / 1000 1000 / 1000 CONT .Q20H LURDES Rx#:[id number] Ofirmev Inj 1,000 mg In 100 ml 200 / 200 @ 400 mls/hr IV.SIG Q6H PRN Rx# :[id number] Magnesium Sulfate Inj 2 GM In 100 / 100 NS Inj 96 ML @ 50 mls/hr IV.SIG ONCE ONE Rx#:[id number] KCl 10 mEq Premix Inj 10 meq In 500 / 500 100 ml @ 100 mls/hr IV.SIG Q1H LURDES Rx#:[id number] Output: Urine 600 / 600 550 / 550 Other: # Voids 4 3 Date of Last Bowel Movement 08/15/18 08/15/18 08/15/18 - Constitutional no acute distress, cooperative - Routine HEENT Exam Head: Absent: atraumatic (Right periorbital ecchymosis.) Eye: Present: PERRL (Pupils 3mm bilaterally reactive bilaterally.). Absent: conjunctival icterus - Routine Respiratory Exam Present: CTA bilaterally. Absent: rhonchi, wheezes - Routine Cardiovascular Exam Present: S1, S2, irregularly irregular. Absent: murmur - Routine Abdominal Exam Present: soft, normoactive bowel sounds. Absent: distended, firm - Routine Skin Exam Present: ecchymosis (Right periorbital ecchymosis.) - Routine Neurological Exam Present: alert, moving all extremities, normal speech. Absent: motor deficit, altered mental status - Detailed Neurological Exam: Coma Scale Eye Opening: Spontaneous Verbal Response: Oriented Motor Response: Obey commands [place] Coma Scale Total: 15 - Routine Psychiatric Exam Present: normal affect, cooperative. Absent: anxious, agitated <Vicente Lemos - Last Filed: 08/19/18 10:10> Assessment and Plan - Attending Attestation The exam, history, and the medical decision-making described in the above note were completed with the assistance of the mid-level provider. I reviewed and agree with the findings presented. I attest that I had a [id number] encounter with the patient on the same day, and personally performed and documented my assessment and findings in the medical record. Stable neurologic exam and follow-up CT scan of the head. Continue with close observation and increase activity status as tolerated. <Abdias Wilhelm - Last Filed: 08/18/18 18:37> - Assessment (1) Stroke Code(s): I63.9 - Cerebral infarction, unspecified Status: Acute (2) Atrial fibrillation Code(s): I48.91 - Unspecified atrial fibrillation Status: Chronic (3) Cerebrovascular accident (CVA) Code(s): I63.9 - Cerebral infarction, unspecified Status: Acute (4) Hypertension Code(s): I10 - Essential (primary) hypertension Status: Chronic (5) UTI (urinary tract infection) Code(s): N39.0 - Urinary tract infection, site not specified Status: Acute (6) GERD (gastroesophageal reflux disease) Code(s): K21.9 - Gastro-esophageal reflux disease without esophagitis Status: Acute (7) Neuropathy Code(s): G62.9 - Polyneuropathy, unspecified Status: Acute (8) Hypothyroid Code(s): E03.9 - Hypothyroidism, unspecified Status: Acute (9) Subdural hemorrhage Code(s): I62.00 - Nontraumatic subdural hemorrhage, unspecified Status: Acute - Plan 73yoF with acute SDH small with small midline shift, neurologically intact, last dose of Xarelto 7pm on 08/14 required due to a fib / recent stroke Follow up CTs stable. Plan: Continue with neuro checks Keppra 500mg BID for sz prophylaxis (no history of seizures) Not planning to reverse Xarelto but will need to hold ~>2 weeks. Pt being transferred to floor Continue to increase activity with assistance. Discussed care/plan with RN. <Vicente Lemos - Last Filed: 08/19/18 10:10>
[2018-08-18 22:51] LABS: Alanine Aminotransferase 21 U/L (10-53); Albumin 3.1 g/dL (3.4-5.0); Alkaline Phosphatase 91 U/L (45-117); Anion Gap 7 meq/L (5-15); Aspartate Aminotransferase 22 U/L (15-37); Blood Urea Nitrogen 17 mg/dL (7-18); Calcium 8.3 mg/dL (8.5-10.1); Carbon Dioxide 27.2 meq/L (21.0-32.0); Chloride 104 meq/L (98-107); Glomerular Filtration Rate 61 mL/min (>89); Glucose,Random 90 mg/dL (74-106); Magnesium 1.9 mg/dL (1.5-2.5); Phosphorus 2.7 mg/dL (2.5-4.9); Potassium 3.9 meq/L (3.5-5.1); Sodium 138 meq/L (136-145)
[2018-08-19] MEDS: Chlorhexidine Gluconate 2% 1 Pack (2 Cloths) TOPICAL SCH (04:20)
[2018-08-19 06:25] LABS: Baso % (Auto) 0.2 % (0.0-2.0); Eos # (Auto) 0.2 th/mm3 (0.0-0.4); Eos % (Auto) 2.6 % (0.0-4.0); Hematocrit 37.4 % (35.0-46.0); Hemoglobin 12.6 gm/dL (11.6-15.3); Lymph # (Auto) 1.2 th/mm3 (1.0-4.8); Lymph % (Auto) 15.9 % (9.0-44.0); Mean Corpuscular HGB Conc 33.8 % (32.0-36.0); Mean Corpuscular Hemoglobin 36.1 pg (27.0-34.0); Mean Corpuscular Volume 106.8 fL (80.0-100.0); Mean Platelet Volume 9.2 fL (7.0-11.0); Mono # (Auto) 0.6 th/mm3 (0.0-0.9); Mono % (Auto) 7.9 % (0.0-8.0); Neut # (Auto) 5.4 th/mm3 (1.8-7.7); Neut % (Auto) 73.4 % (16.0-70.0); Platelet Count 142 th/mm3 (150-450); Red Cell Distribution Width 15.9 % (11.6-17.2); White Blood Count 7.4 th/mm3 (4.0-11.0)
[2018-08-19 06:54] LABS: Free T4 (Free Thyroxine) 1.46 ng/dL (0.76-1.46); Thyroid Stimulating Hormone 0.724 uIU/mL (0.358-3.740)
[2018-08-19 07:51] LABS: Ovalocytes 1+
[2018-08-19 07:52] LABS: Platelet Morphology Normal (Normal)
[2018-08-19] MEDS: Ferrous Sulfate 325 MG Tablet PO SCH (09:43)
[2018-08-19] MEDS: Lisinopril 5 MG Tablet PO SCH (09:43)
[2018-08-19] MEDS: Furosemide 20 MG Tablet PO SCH (09:43)
[2018-08-19] MEDS: Gabapentin 100 MG Capsule PO SCH ×2 (09:43→21:00)
[2018-08-19] MEDS: Senna/Docusate Sodium 8.6/50 MG Tablet PO SCH ×2 (09:43→21:00)
[2018-08-19] MEDS: Metoprolol Tartrate 25 MG Tablet PO SCH (09:44)
[2018-08-19] MEDS: levETIRAcetam 500 MG Tablet PO SCH ×2 (09:44→21:00)
[2018-08-19] MEDS: Sod Chloride 0.9% Inj 1,000 ML IV.CONT SCH (09:47)
--- NOTE | 2018-08-19 09:48 | P.PN ---
Subjective Interval history: Patient doing well. Patient is tolerating p.o., voiding/stooling well. Patient has no concerns. She reports that she would like to regain her full strength before she is discharged home. Physical Exam Vital signs: Vital Signs 08/18/18 09:58 08/18/18 10:00 08/18/18 10:58 Temperature Pulse Rate 71 75 70 Respiratory Rate 19 14 17 Blood Pressure 150/92 H 179/84 H Pulse Oximetry 97 98 97 08/18/18 11:00 08/18/18 11:08 08/18/18 11:58 Temperature Pulse Rate 69 74 70 Respiratory Rate 15 23 Blood Pressure 161/91 H 156/76 H Pulse Oximetry 98 97 99 08/18/18 12:00 08/18/18 12:58 08/18/18 13:00 Temperature 98.5 F Pulse Rate 81 71 70 Respiratory Rate 18 22 14 Blood Pressure 124/62 169/84 H Pulse Oximetry 98 99 100 08/18/18 13:34 08/18/18 13:58 08/18/18 14:00 Temperature Pulse Rate 71 67 64 Respiratory Rate 15 18 15 Blood Pressure 126/59 L 117/58 L 122/59 L Pulse Oximetry 96 96 92 L 08/18/18 14:58 08/18/18 15:00 08/18/18 15:58 Temperature Pulse Rate 64 71 74 Respiratory Rate 14 23 18 Blood Pressure 100/55 L 119/61 Pulse Oximetry 97 95 96 08/18/18 16:00 08/18/18 16:58 08/18/18 17:00 Temperature Pulse Rate 73 68 70 Respiratory Rate 21 14 18 Blood Pressure 119/57 L Pulse Oximetry 94 L 97 96 08/18/18 17:58 08/18/18 18:00 08/18/18 18:58 Temperature Pulse Rate 70 70 81 Respiratory Rate 18 16 109 H Blood Pressure 122/64 130/60 130/60 Pulse Oximetry 96 94 L 08/18/18 19:00 08/18/18 19:07 08/18/18 20:00 Temperature 98.9 F Pulse Rate 78 73 126 H Respiratory Rate 107 H 123 H 106 H Blood Pressure 117/58 L 117/58 L 115/55 L Pulse Oximetry 97 97 08/18/18 20:12 08/18/18 20:58 08/18/18 21:00 Temperature Pulse Rate 81 78 76 Respiratory Rate 25 H 19 16 Blood Pressure 115/55 L 124/62 Pulse Oximetry 90 L 91 L 08/18/18 22:00 08/18/18 22:19 08/18/18 22:58 Temperature Pulse Rate 82 91 H 77 Respiratory Rate 27 H 33 H 17 Blood Pressure 118/64 126/96 H Pulse Oximetry 89 L 93 L 91 L 08/18/18 23:00 08/19/18 00:00 08/19/18 00:09 Temperature 98.2 F Pulse Rate 85 81 90 Respiratory Rate 33 H 17 30 H Blood Pressure 145/61 H 145/61 H Pulse Oximetry 79 L 97 08/19/18 00:58 08/19/18 01:00 08/19/18 01:58 Temperature Pulse Rate 80 75 83 Respiratory Rate 98 H 94 H 101 H Blood Pressure 158/79 H 154/92 H Pulse Oximetry 95 96 95 08/19/18 02:00 08/19/18 02:58 08/19/18 03:00 Temperature Pulse Rate 80 80 79 Respiratory Rate 82 H 19 23 Blood Pressure 152/97 H Pulse Oximetry 95 93 L 93 L 08/19/18 04:00 08/19/18 04:01 08/19/18 09:00 Temperature 98.4 F Pulse Rate 82 77 73 Respiratory Rate 44 H 19 Blood Pressure 166/82 H 166/82 H Pulse Oximetry 99 100 Intake & Output 08/18/18 08/19/18 08/19/18 18:59 06:59 18:59 Intake Total 2660 / 2660 480 / 480 Output Total 250 / 250 Balance 2410 / 2410 480 / 480 Weight 84.2 kg Intake: IV 1700 / 1700 NS Inj 1,000 ML @ 50 mls/hr IV. 1000 / 1000 CONT .Q20H LURDES Rx#:[id number] Magnesium Sulfate Inj 2 GM In 100 / 100 NS Inj 96 ML @ 50 mls/hr IV.SIG ONCE ONE Rx#:[id number] KCl 10 mEq Premix Inj 10 meq In 600 / 600 100 ml @ 100 mls/hr IV.SIG Q1H LURDES Rx#:[id number] Oral 960 / 960 480 / 480 Output: Urine 250 / 250 Other: # Voids 2 2 Date of Last Bowel Movement 08/15/18 08/18/18 08/18/18 Narrative: GENERAL: Well-nourished female, no acute distress, lying comfortably in bed SKIN: Warm and dry. HEENT: Normocephalic. No scleral icterus. No injection or drainage. PERRLA, MOM. NECK: Supple, trachea midline. No JVD or lymphadenopathy. CARDIOVASCULAR: Regular rate and rhythm without murmurs, gallops, or rubs. RESPIRATORY: Breath sounds equal bilaterally. No accessory muscle use. GASTROINTESTINAL: Abdomen soft, non-tender, nondistended. MUSCULOSKELETAL: No cyanosis, or edema. BACK: Nontender without obvious deformity. No CVA tenderness. NEURO: AAO x3, no focal deficits, motor system 5/5 x 4. Speech clear. Results - Labs CBC & Chem 7: 08/19/18 06:10 08/18/18 22:09 Laboratory Results - last 24 hr 08/18/18 08/19/18 08/19/18 22:09 06:10 06:10 WBC 7.4 RBC 3.50 L Hgb 12.6 Hct 37.4 MCV 106.8 H MCH 36.1 H MCHC 33.8 RDW 15.9 Plt Count 142 L MPV 9.2 Prelim Diff (Auto) Slide review pending Neut % (Auto) 73.4 H Lymph % (Auto) 15.9 [place] % (Auto) 7.9 Eos % (Auto) 2.6 Baso % (Auto) 0.2 Neut # (Auto) 5.4 Lymph # (Auto) 1.2 [place] # (Auto) 0.6 Eos # (Auto) 0.2 Baso # (Auto) 0.0 WBC Differential . Diff Scan Auto diff confirmed Differential Comment . Platelet Estimate Low L Platelet Morphology Normal Ovalocytes 1+ H Sodium 138 Potassium 3.9 D Chloride 104 Carbon Dioxide 27.2 Anion Gap 7 BUN 17 Creatinine 0.90 Estimated GFR 61 L Random Glucose 90 Calcium 8.3 L Phosphorus 2.7 Magnesium 1.9 Total Bilirubin 1.5 H AST 22 ALT 21 Alkaline Phosphatase 91 Total Protein 6.0 L Albumin 3.1 L TSH 0.724 Free T4 1.46 - Imaging Impressions Head CT 08/18/18 00:00 CONCLUSION: 1. Stable right subdural hematoma with minimal effacement of the cortical sulci. . Assessment and Plan - Assessment (1) Atrial fibrillation Code(s): I48.91 - Unspecified atrial fibrillation Status: Chronic (2) Hypertension Code(s): I10 - Essential (primary) hypertension Status: Chronic (3) Subdural hemorrhage Code(s): I62.00 - Nontraumatic subdural hemorrhage, unspecified Status: Acute - Plan This is a 73-year-old CF with PMHx of HTN, Mild Dementia, Etoh abuse, Atrial fibrillation on anticoagulation with Xarelto, and prior embolic strokes who presented to the ED after a fall with CT brain showing a 7-8 mm R subdural with 4-5 mm of right to left midline shift with evidence of prior strokes in her right occipital lobe and left cerebellum. Hx of prior embolic stroke in 2017 due to A. Fib and was Rx low-dose Xarelto. About a week and a half prior to admission she had followed up with Dr. Castillo and Xarelto had been increased to 20mg QD. Last dose of Xarelto was at 19:00 on 08/14. Unfortunately , her last stroke occurred after Xarelto was held following surgery for abdominal abscess. Will need to hold xarelto currently, HD#5 1. NEURO: R 7-8 mm Subdural hematoma with midline shift Fall/ History of embolic Stroke Chronic anticoagulation with Xarelto due to history of stroke/ A fib--on hold Mild dementia/Peripheral Neuropathy Prior history of alcohol dependence Clinically stable, cont. Neuro checks Ct Head on 08/18: Stable right subdural hematoma with minimal effacement of the cortical sulci Cont. Keppra for seizure prophylaxis per Dr. Guallpa recommendations HOLD Rivaroxaban and aspirin for 2wks per NeuroSx, see below. Hold off on K Centra at this time, may require if surgery needed Monitor for signs and symptoms of alcohol withdrawal, cont. Thiamine/MV Continue Denia for neuropathy Per NeuroSx Reccs 08/18: 73yoF with acute SDH small with small midline shift, neurologically intact, last dose of Xarelto 7pm on 08/14 required due to a fib / recent stroke Follow up CTs stable. Plan: Continue with neuro checks Keppra 500mg BID for sz prophylaxis (no history of seizures) Not planning to reverse Xarelto but will need to hold ~>2 weeks. Pt being transferred to floor Continue to increase activity with assistance. Discussed care/plan with RN. 2.CV Hypertension, poorly controlled Hyperlipidemia Atrial fibrillation Will increase Metoprolol to 25 mg BID Cont. Lasix, Lisinopril, and Statin Cont. Labetalol and Hydralazine PRN 3. GERD Cont. PPI 4. HEME Chronic anticoagulation with rivaroxaban Iron deficiency Erythrocyte macrocytosis Continue FeSulfate 5. Hypothyroidism TSH 0.714 Continue Synthroid 6. DVT PPX: SCD's, avoid pharmacologic DVT prophylaxis due to subdural hematoma. 7. Disposition: Monitor BP's. F/U Neuro Sx reccs. Patient is critically ill with subdural hematoma and is at risk for further deterioration including expansion of subdural hematoma requiring emergent crani and/or resulting in loss of airway protection. It may be best for her to go to a SNF rather than home when she is stable for D/C. Case mgmt consulted. Code Status: full Discussed Condition With: patient, RN
--- NOTE | 2018-08-19 10:08 | P.PNNS ---
Subjective Interval history: Pt awake and alert. Denies headache. No n/v. No paresthesias. Follow commands well. <Vicente Lemos - Last Filed: 08/19/18 10:12> Physical Exam Vital signs: Vital Signs 08/18/18 10:58 08/18/18 11:00 08/18/18 11:08 Temperature Pulse Rate 70 69 74 Respiratory Rate 17 15 23 Blood Pressure 179/84 H 161/91 H Pulse Oximetry 97 98 97 08/18/18 11:58 08/18/18 12:00 08/18/18 12:58 Temperature 98.5 F Pulse Rate 70 81 71 Respiratory Rate 18 22 Blood Pressure 156/76 H 124/62 169/84 H Pulse Oximetry 99 98 99 08/18/18 13:00 08/18/18 13:34 08/18/18 13:58 Temperature Pulse Rate 70 71 67 Respiratory Rate 14 15 18 Blood Pressure 126/59 L 117/58 L Pulse Oximetry 100 96 96 08/18/18 14:00 08/18/18 14:58 08/18/18 15:00 Temperature Pulse Rate 64 64 71 Respiratory Rate 15 14 23 Blood Pressure 122/59 L 100/55 L Pulse Oximetry 92 L 97 95 08/18/18 15:58 08/18/18 16:00 08/18/18 16:58 Temperature Pulse Rate 74 73 68 Respiratory Rate 18 21 14 Blood Pressure 119/61 119/57 L Pulse Oximetry 96 94 L 97 08/18/18 17:00 08/18/18 17:58 08/18/18 18:00 Temperature Pulse Rate 70 70 70 Respiratory Rate 18 18 16 Blood Pressure 122/64 130/60 Pulse Oximetry 96 96 94 L 08/18/18 18:58 08/18/18 19:00 08/18/18 19:07 Temperature Pulse Rate 81 78 73 Respiratory Rate 109 H 107 H 123 H Blood Pressure 130/60 117/58 L 117/58 L Pulse Oximetry 97 08/18/18 20:00 08/18/18 20:12 08/18/18 20:58 Temperature 98.9 F Pulse Rate 126 H 81 78 Respiratory Rate 106 H 25 H 19 Blood Pressure 115/55 L 115/55 L 124/62 Pulse Oximetry 97 90 L 08/18/18 21:00 08/18/18 22:00 08/18/18 22:19 Temperature Pulse Rate 76 82 91 H Respiratory Rate 16 27 H 33 H Blood Pressure 118/64 Pulse Oximetry 91 L 89 L 93 L 08/18/18 22:58 08/18/18 23:00 08/19/18 00:00 Temperature 98.2 F Pulse Rate 77 85 81 Respiratory Rate 17 33 H 17 Blood Pressure 126/96 H 145/61 H Pulse Oximetry 91 L 79 L 97 08/19/18 00:09 08/19/18 00:58 08/19/18 01:00 Temperature Pulse Rate 90 80 75 Respiratory Rate 30 H 98 H 94 H Blood Pressure 145/61 H 158/79 H Pulse Oximetry 95 96 08/19/18 01:58 08/19/18 02:00 08/19/18 02:58 Temperature Pulse Rate 83 80 80 Respiratory Rate 101 H 82 H 19 Blood Pressure 154/92 H 152/97 H Pulse Oximetry 95 95 93 L 08/19/18 03:00 08/19/18 04:00 08/19/18 04:01 Temperature 98.4 F Pulse Rate 79 82 77 Respiratory Rate 23 44 H 19 Blood Pressure 166/82 H 166/82 H Pulse Oximetry 93 L 99 100 08/19/18 08:00 08/19/18 09:00 Temperature 98.3 F Pulse Rate 73 73 Respiratory Rate 15 Blood Pressure 173/78 H Pulse Oximetry 98 Intake & Output 08/18/18 08/19/18 08/19/18 18:59 06:59 18:59 Intake Total 2660 / 2660 480 / 480 1000 / 1000 Output Total 250 / 250 Balance 2410 / 2410 480 / 480 1000 / 1000 Weight 84.2 kg Intake: IV 1700 / 1700 1000 / 1000 NS Inj 1,000 ML @ 50 mls/hr IV. 1000 / 1000 1000 / 1000 CONT .Q20H LURDES Rx#:[id number] Magnesium Sulfate Inj 2 GM In 100 / 100 NS Inj 96 ML @ 50 mls/hr IV.SIG ONCE ONE Rx#:[id number] KCl 10 mEq Premix Inj 10 meq In 600 / 600 100 ml @ 100 mls/hr IV.SIG Q1H LURDES Rx#:[id number] Oral 960 / 960 480 / 480 Output: Urine 250 / 250 Other: # Voids 2 2 Date of Last Bowel Movement 08/15/18 08/18/18 08/18/18 - Constitutional no acute distress, cooperative - Routine HEENT Exam Head: Absent: atraumatic (Right periorbital ecchymosis.) Eye: Present: PERRL (Pupils equal 3mm bilaterally.), periorbital ecchymosis ( Right.) - Routine Respiratory Exam Present: CTA bilaterally. Absent: respiratory distress, rhonchi, wheezes - Routine Cardiovascular Exam Present: S1, S2, irregular rhythm. Absent: murmur - Routine Abdominal Exam Present: soft, normoactive bowel sounds. Absent: distended, firm - Routine Skin Exam Present: ecchymosis (Right periorbital.). Absent: cyanosis, erythema - Routine Neurological Exam Present: alert, oriented X3, moving all extremities, normal speech. Absent: motor deficit, altered mental status - Routine Psychiatric Exam Present: normal affect, cooperative. Absent: anxious, agitated <Vicente Lemos - Last Filed: 08/19/18 10:12> Vital signs: Vital Signs 08/18/18 13:34 08/18/18 13:58 08/18/18 14:00 Temperature Pulse Rate 71 67 64 Respiratory Rate 15 18 15 Blood Pressure 126/59 L 117/58 L 122/59 L Pulse Oximetry 96 96 92 L 08/18/18 14:58 08/18/18 15:00 08/18/18 15:58 Temperature Pulse Rate 64 71 74 Respiratory Rate 14 23 18 Blood Pressure 100/55 L 119/61 Pulse Oximetry 97 95 96 08/18/18 16:00 08/18/18 16:58 08/18/18 17:00 Temperature Pulse Rate 73 68 70 Respiratory Rate 21 14 18 Blood Pressure 119/57 L Pulse Oximetry 94 L 97 96 08/18/18 17:58 08/18/18 18:00 08/18/18 18:58 Temperature Pulse Rate 70 70 81 Respiratory Rate 18 16 109 H Blood Pressure 122/64 130/60 130/60 Pulse Oximetry 96 94 L 08/18/18 19:00 08/18/18 19:07 08/18/18 20:00 Temperature 98.9 F Pulse Rate 78 73 126 H Respiratory Rate 107 H 123 H 106 H Blood Pressure 117/58 L 117/58 L 115/55 L Pulse Oximetry 97 97 08/18/18 20:12 08/18/18 20:58 08/18/18 21:00 Temperature Pulse Rate 81 78 76 Respiratory Rate 25 H 19 16 Blood Pressure 115/55 L 124/62 Pulse Oximetry 90 L 91 L 08/18/18 22:00 08/18/18 22:19 08/18/18 22:58 Temperature Pulse Rate 82 91 H 77 Respiratory Rate 27 H 33 H 17 Blood Pressure 118/64 126/96 H Pulse Oximetry 89 L 93 L 91 L 08/18/18 23:00 08/19/18 00:00 08/19/18 00:09 Temperature 98.2 F Pulse Rate 85 81 90 Respiratory Rate 33 H 17 30 H Blood Pressure 145/61 H 145/61 H Pulse Oximetry 79 L 97 08/19/18 00:58 08/19/18 01:00 08/19/18 01:58 Temperature Pulse Rate 80 75 83 Respiratory Rate 98 H 94 H 101 H Blood Pressure 158/79 H 154/92 H Pulse Oximetry 95 96 95 08/19/18 02:00 08/19/18 02:58 08/19/18 03:00 Temperature Pulse Rate 80 80 79 Respiratory Rate 82 H 19 23 Blood Pressure 152/97 H Pulse Oximetry 95 93 L 93 L 08/19/18 04:00 08/19/18 04:01 08/19/18 08:00 Temperature 98.4 F 98.3 F Pulse Rate 82 77 73 Respiratory Rate 44 H 19 15 Blood Pressure 166/82 H 166/82 H 173/78 H Pulse Oximetry 99 100 98 08/19/18 09:00 08/19/18 11:37 08/19/18 12:00 Temperature 98.5 F Pulse Rate 73 79 Respiratory Rate 17 15 Blood Pressure 148/88 H Pulse Oximetry 98 Intake & Output 08/18/18 08/19/18 08/19/18 18:59 06:59 18:59 Intake Total 2660 / 2660 480 / 480 1150 / 1150 Output Total 250 / 250 Balance 2410 / 2410 480 / 480 1150 / 1150 Weight 84.2 kg Intake: IV 1700 / 1700 1150 / 1150 NS Inj 1,000 ML @ 50 mls/hr IV. 1000 / 1000 1150 / 1150 CONT .Q20H LURDES Rx#:[id number] Magnesium Sulfate Inj 2 GM In 100 / 100 NS Inj 96 ML @ 50 mls/hr IV.SIG ONCE ONE Rx#:[id number] KCl 10 mEq Premix Inj 10 meq In 600 / 600 100 ml @ 100 mls/hr IV.SIG Q1H LURDES Rx#:[id number] Oral 960 / 960 480 / 480 Output: Urine 250 / 250 Other: # Voids 2 2 Date of Last Bowel Movement 08/15/18 08/18/18 08/18/18 <Abdias Wilhelm - Last Filed: 08/19/18 13:27> Assessment and Plan - Assessment (1) Stroke Code(s): I63.9 - Cerebral infarction, unspecified Status: Acute (2) Atrial fibrillation Code(s): I48.91 - Unspecified atrial fibrillation Status: Chronic (3) Cerebrovascular accident (CVA) Code(s): I63.9 - Cerebral infarction, unspecified Status: Acute (4) Hypertension Code(s): I10 - Essential (primary) hypertension Status: Chronic (5) UTI (urinary tract infection) Code(s): N39.0 - Urinary tract infection, site not specified Status: Acute (6) GERD (gastroesophageal reflux disease) Code(s): K21.9 - Gastro-esophageal reflux disease without esophagitis Status: Acute (7) Neuropathy Code(s): G62.9 - Polyneuropathy, unspecified Status: Acute (8) Hypothyroid Code(s): E03.9 - Hypothyroidism, unspecified Status: Acute (9) Subdural hemorrhage Code(s): I62.00 - Nontraumatic subdural hemorrhage, unspecified Status: Acute - Plan 73yoF with acute SDH small with small midline shift, neurologically intact, last dose of Xarelto 7pm on 08/14 required due to a fib / recent stroke Follow up CTs stable. Plan: Continue with neuro checks Keppra 500mg BID for sz prophylaxis (no history of seizures) Hold Xarelto ~>2 weeks. Pt being transferred to floor Continue to increase activity with assistance. Discussed care/plan with RN. <Vicente Lemos - Last Filed: 08/19/18 10:12> - Attending Attestation The exam, history, and the medical decision-making described in the above note were completed with the assistance of the mid-level provider. I reviewed and agree with the findings presented. I attest that I had a [id number] encounter with the patient on the same day, and personally performed and documented my assessment and findings in the medical record. <Abdias Wilhelm - Last Filed: 08/19/18 13:27>
[2018-08-19] MEDS: Acetaminophen 325 MG Tablet PO PRN (11:07)
[2018-08-19 13:19] LABS: Calcium 8.3 mg/dL (8.5-10.1); Carbon Dioxide 27.7 meq/L (21.0-32.0); Potassium 3.6 meq/L (3.5-5.1)
[2018-08-20] MEDS: Chlorhexidine Gluconate 2% 1 Pack (2 Cloths) TOPICAL SCH (06:07)
[2018-08-20] MEDS: levETIRAcetam 500 MG Tablet PO SCH ×2 (08:36→23:49)
[2018-08-20] MEDS: Senna/Docusate Sodium 8.6/50 MG Tablet PO SCH ×2 (08:36→23:50)
[2018-08-20] MEDS: Gabapentin 100 MG Capsule PO SCH ×2 (08:36→23:50)
[2018-08-20] MEDS: Furosemide 20 MG Tablet PO SCH (08:36)
[2018-08-20] MEDS: Lisinopril 5 MG Tablet PO SCH (08:36)
[2018-08-20] MEDS: Metoprolol Tartrate 25 MG Tablet PO SCH (08:37)
[2018-08-20] MEDS: Ferrous Sulfate 325 MG Tablet PO SCH (08:37)
[2018-08-20 08:51] LABS: Baso % (Auto) 0.6 % (0.0-2.0); Eos # (Auto) 0.2 th/mm3 (0.0-0.4); Eos % (Auto) 3.2 % (0.0-4.0); Hematocrit 34.5 % (35.0-46.0); Hemoglobin 11.6 gm/dL (11.6-15.3); Lymph # (Auto) 0.8 th/mm3 (1.0-4.8); Lymph % (Auto) 17.1 % (9.0-44.0); Mean Corpuscular HGB Conc 33.7 % (32.0-36.0); Mean Corpuscular Hemoglobin 36.5 pg (27.0-34.0); Mean Corpuscular Volume 108.3 fL (80.0-100.0); Mono # (Auto) 0.5 th/mm3 (0.0-0.9); Mono % (Auto) 10.1 % (0.0-8.0); Neut # (Auto) 3.4 th/mm3 (1.8-7.7); Platelet Count 144 th/mm3 (150-450); Red Blood Count 3.18 mil/mm3 (4.00-5.30); Red Cell Distribution Width 15.8 % (11.6-17.2); White Blood Count 4.9 th/mm3 (4.0-11.0)
[2018-08-20 09:23] LABS: Alanine Aminotransferase 18 U/L (10-53); Albumin 2.9 g/dL (3.4-5.0); Anion Gap 6 meq/L (5-15); Aspartate Aminotransferase 18 U/L (15-37); Blood Urea Nitrogen 12 mg/dL (7-18); Calcium 8.5 mg/dL (8.5-10.1); Carbon Dioxide 29.1 meq/L (21.0-32.0); Chloride 106 meq/L (98-107); Glomerular Filtration Rate Greater Than 89 mL/min (>89); Glucose,Random 79 mg/dL (74-106); Magnesium 1.8 mg/dL (1.5-2.5); Potassium 3.3 meq/L (3.5-5.1); Sodium 141 meq/L (136-145)
[2018-08-20 09:26] LABS: Alkaline Phosphatase 86 U/L (45-117); Total Protein 5.7 g/dL (6.4-8.2)
--- NOTE | 2018-08-20 12:53 | P.PN ---
Subjective Interval history: awake and alert, seen with daughter no complains up and ambualted with aptient- did well with a walker Physical Exam Vital signs: Vital Signs 08/19/18 16:00 08/19/18 17:24 08/19/18 20:00 Temperature 97.8 F 97.8 F Pulse Rate 62 62 Respiratory Rate 18 18 16 Blood Pressure 142/60 H 151/67 H Pulse Oximetry 98 100 08/20/18 00:00 08/20/18 04:00 08/20/18 08:00 Temperature 97.6 F 98.1 F 98 F Pulse Rate 76 84 83 Respiratory Rate 18 18 Blood Pressure 122/59 L 143/68 H 131/68 Pulse Oximetry 97 97 98 Intake & Output 08/19/18 08/20/18 08/20/18 18:59 06:59 18:59 Intake Total 2109 Balance 2109 Weight 86.8 kg Intake: IV 1150 / 1150 NS Inj 1,000 ML @ 50 mls/hr IV. 1150 / 1150 CONT .Q20H LURDES Rx#:[id number] Oral 960 / 960 Other: # Voids 4 0 Date of Last Bowel Movement 08/18/18 08/18/18 # Bowel Movements 0 Narrative: GENERAL: no acute distress, SKIN: Warm and dry. HEENT: Normocephalic. No scleral icterus. No injection or drainage. PERRLA, MOM. NECK: Supple, trachea midline. No JVD or lymphadenopathy. CARDIOVASCULAR: irregularly irregular rhtyhm RESPIRATORY: Breath sounds equal bilaterally. No accessory muscle use. GASTROINTESTINAL: Abdomen soft, non-tender, nondistended. MUSCULOSKELETAL: No cyanosis, or edema. BACK: Nontender without obvious deformity. No CVA tenderness. NEURO: AAO x3, no focal deficits, motor system 5/5 x 4. Speech clear. Results - Labs CBC & Chem 7: 08/20/18 07:55 08/20/18 07:55 Laboratory Results - last 24 hr 08/19/18 08/20/18 08/20/18 12:30 07:55 07:55 WBC 4.9 RBC 3.18 L Hgb 11.6 Hct 34.5 L MCV 108.3 H MCH 36.5 H MCHC 33.7 RDW 15.8 Plt Count 144 L MPV 9.0 Neut % (Auto) 69.0 Lymph % (Auto) 17.1 [place] % (Auto) 10.1 H Eos % (Auto) 3.2 Baso % (Auto) 0.6 Neut # (Auto) 3.4 Lymph # (Auto) 0.8 L [place] # (Auto) 0.5 Eos # (Auto) 0.2 Baso # (Auto) 0.0 WBC Differential . Differential Comment Auto diff final Sodium 140 141 Potassium 3.6 3.3 L Chloride 107 106 Carbon Dioxide 27.7 29.1 Anion Gap 5 6 BUN 13 12 Creatinine 0.67 0.64 Estimated GFR 86 L Greater than 89 Random Glucose 91 79 Calcium 8.3 L 8.5 Magnesium 1.8 Total Bilirubin 1.2 H AST 18 ALT 18 Alkaline Phosphatase 86 Total Protein 5.7 L Albumin 2.9 L Assessment and Plan - Assessment (1) Atrial fibrillation Code(s): I48.91 - Unspecified atrial fibrillation Status: Chronic (2) Hypertension Code(s): I10 - Essential (primary) hypertension Status: Chronic (3) Subdural hemorrhage Code(s): I62.00 - Nontraumatic subdural hemorrhage, unspecified Status: Acute - Plan This is a 73-year-old CF with PMHx of HTN, Mild Dementia, Etoh abuse, Atrial fibrillation on anticoagulation with Xarelto, and prior embolic strokes who presented to the ED after a fall with CT brain showing a 7-8 mm R subdural with 4-5 mm of right to left midline shift with evidence of prior strokes in her right occipital lobe and left cerebellum. Hx of prior embolic stroke in 2017 due to A. Fib and was Rx low-dose Xarelto. About a week and a half prior to admission she had followed up with Dr. Castillo and Xarelto had been increased to 20mg QD. Last dose of Xarelto was at 19:00 on 08/14. Unfortunately , her last stroke occurred after Xarelto was held following surgery for abdominal abscess. Will need to hold xarelto currently, HD#5 1. NEURO: R 7-8 mm Subdural hematoma with midline shift Fall/ History of embolic Stroke Chronic anticoagulation with Xarelto due to history of stroke/ A fib--on hold Mild dementia/Peripheral Neuropathy Prior history of alcohol dependence Clinically stable, cont. Neuro checks Ct Head on 08/18: Stable right subdural hematoma with minimal effacement of the cortical sulci Cont. Keppra for seizure prophylaxis per Dr. Guallpa recommendations HOLD Rivaroxaban and aspirin for 2wks per NeuroSx, see below. Hold off on K Centra at this time, may require if surgery needed Monitor for signs and symptoms of alcohol withdrawal, cont. Thiamine/MV Continue Denia for neuropathy Per NeuroSx Reccs 08/18: 73yoF with acute SDH small with small midline shift, neurologically intact, last dose of Xarelto 7pm on 08/14 required due to a fib / recent stroke Follow up CTs stable. Plan: Continue with neuro checks Keppra 500mg BID for sz prophylaxis (no history of seizures) Not planning to reverse Xarelto but will need to hold ~>2 weeks. Continue to increase activity with assistance. OP ff up with Neurology/Neurosurger 2.CV Hypertension, poorly controlled Hyperlipidemia Atrial fibrillation- rate controlled Metoprolol to 25 mg BID Cont. Lasix, Lisinopril, and Statin Cont. Labetalol and Hydralazine PRN 3. GERD Cont. PPI 4. HEME Chronic anticoagulation with rivaroxaban Iron deficiency Erythrocyte macrocytosis Continue FeSulfate 5. Hypothyroidism TSH 0.714 Continue Synthroid 6. DVT PPX: SCD's, avoid pharmacologic DVT prophylaxis due to subdural hematoma. 7. Disposition: Monitor BP's. F/U Neuro Sx reccs. Patient is critically ill with subdural hematoma and is at risk for further deterioration including expansion of subdural hematoma requiring emergent crani and/or resulting in loss of airway protection. It may be best for her to go to a SNF rather than home when she is stable for D/C. Case mgmt consulted. did well ambulating- d/w daughter- choice of SNF- [facility]- per staff nurse- awaiting authorization Code Status: full
--- NOTE | 2018-08-20 13:33 | P.PNNS ---
Subjective Interval history: Pt awake and alert. Sitting up in chair. Pt states occasional headaches but stable from her baseline. No difficulty with speech. No n/v. <Vicente Lemos - Last Filed: 08/20/18 13:29> Physical Exam Vital signs: Vital Signs 08/19/18 16:00 08/19/18 17:24 08/19/18 20:00 Temperature 97.8 F 97.8 F Pulse Rate 62 62 Respiratory Rate 18 18 16 Blood Pressure 142/60 H 151/67 H Pulse Oximetry 98 100 08/20/18 00:00 08/20/18 04:00 08/20/18 08:00 Temperature 97.6 F 98.1 F 98 F Pulse Rate 76 84 83 Respiratory Rate 18 20 18 Blood Pressure 122/59 L 143/68 H 131/68 Pulse Oximetry 97 97 98 08/20/18 12:00 Temperature 97.9 F Pulse Rate 87 Respiratory Rate 18 Blood Pressure 135/66 Pulse Oximetry 96 Intake & Output 08/19/18 08/20/18 08/20/18 18:59 06:59 18:59 Intake Total 2109 / 2109 Balance 2109 / 2109 Weight 86.8 kg Intake: IV 1150 / 1150 NS Inj 1,000 ML @ 50 mls/hr IV. 1150 / 1150 CONT .Q20H [facility] Rx#:[id number] Oral 960 / 960 Other: # Voids 4 0 Date of Last Bowel Movement 08/18/18 08/18/18 # Bowel Movements 0 - Constitutional no acute distress - Routine HEENT Exam Head: Absent: atraumatic (Right periorbital ecchymosis.) Eye: Present: PERRL (Pupils 3mm bilaterally. Reactive bilaterally.) - Routine Respiratory Exam Present: CTA bilaterally. Absent: respiratory distress, rhonchi, wheezes - Routine Cardiovascular Exam Present: RRR, S1, S2. Absent: murmur - Routine Abdominal Exam Present: soft, normoactive bowel sounds. Absent: distended - Routine Skin Exam Absent: cyanosis, erythema - Routine Neurological Exam Present: alert, moving all extremities, normal speech. Absent: sensory deficit , motor deficit, altered mental status - Routine Psychiatric Exam Present: normal affect, cooperative. Absent: anxious, agitated <Vicente Lemos - Last Filed: 08/20/18 13:29> Vital signs: Vital Signs 08/19/18 16:00 08/19/18 17:24 08/19/18 20:00 Temperature 97.8 F 97.8 F Pulse Rate 62 62 Respiratory Rate 18 18 16 Blood Pressure 142/60 H 151/67 H Pulse Oximetry 98 100 08/20/18 00:00 08/20/18 04:00 08/20/18 08:00 Temperature 97.6 F 98.1 F 98 F Pulse Rate 76 84 83 Respiratory Rate 18 20 18 Blood Pressure 122/59 L 143/68 H 131/68 Pulse Oximetry 97 97 98 08/20/18 12:00 Temperature 97.9 F Pulse Rate 87 Respiratory Rate 18 Blood Pressure 135/66 Pulse Oximetry 96 Intake & Output 08/19/18 08/20/18 08/20/18 18:59 06:59 18:59 Intake Total 2109 Balance 2109 Weight 86.8 kg Intake: IV 1150 / 1150 NS Inj 1,000 ML @ 50 mls/hr IV. 1150 / 1150 CONT .Q20H [facility] Rx#:[id number] Oral 960 / 960 Other: # Voids 4 0 Date of Last Bowel Movement 08/18/18 08/18/18 # Bowel Movements 0 <Abdias Wilhelm - Last Filed: 08/20/18 15:08> Assessment and Plan - Assessment (1) Stroke Code(s): I63.9 - Cerebral infarction, unspecified Status: Acute (2) Atrial fibrillation Code(s): I48.91 - Unspecified atrial fibrillation Status: Chronic (3) Cerebrovascular accident (CVA) Code(s): I63.9 - Cerebral infarction, unspecified Status: Acute (4) Hypertension Code(s): I10 - Essential (primary) hypertension Status: Chronic (5) UTI (urinary tract infection) Code(s): N39.0 - Urinary tract infection, site not specified Status: Acute (6) GERD (gastroesophageal reflux disease) Code(s): K21.9 - Gastro-esophageal reflux disease without esophagitis Status: Acute (7) Neuropathy Code(s): G62.9 - Polyneuropathy, unspecified Status: Acute (8) Hypothyroid Code(s): E03.9 - Hypothyroidism, unspecified Status: Acute (9) Subdural hemorrhage Code(s): I62.00 - Nontraumatic subdural hemorrhage, unspecified Status: Acute - Plan 73yoF with acute SDH small with small midline shift, neurologically intact, last dose of Xarelto 7pm on 08/14 required due to a fib / recent stroke Follow up CTs stable. Plan: Continue with neuro checks Keppra 500mg BID for sz prophylaxis (no history of seizures) Hold Xarelto ~>[address] head in 2 weeks. Continue to increase activity with assistance. Rehab placement when bed available. <Vicente Lemos - Last Filed: 08/20/18 13:29> - Attending Attestation The exam, history, and the medical decision-making described in the above note were completed with the assistance of the mid-level provider. I reviewed and agree with the findings presented. I attest that I had a [id number] encounter with the patient on the same day, and personally performed and documented my assessment and findings in the medical record. <Abdias Wilhelm - Last Filed: 08/20/18 15:08>
[2018-08-21] MEDS: Gabapentin 100 MG Capsule PO SCH (08:57)
[2018-08-21] MEDS: Furosemide 20 MG Tablet PO SCH (08:57)
[2018-08-21] MEDS: Ferrous Sulfate 325 MG Tablet PO SCH (08:57)
[2018-08-21] MEDS: levETIRAcetam 500 MG Tablet PO SCH (08:57)
[2018-08-21] MEDS: Lisinopril 5 MG Tablet PO SCH (08:58)
[2018-08-21] MEDS: Senna/Docusate Sodium 8.6/50 MG Tablet PO SCH (08:58)
[2018-08-21] MEDS: Metoprolol Tartrate 25 MG Tablet PO SCH (08:58)
--- NOTE | 2018-08-21 13:02 | P.PN ---
Subjective Interval history: good po, no complains of ehadahces, nause aor vomiting speech cler and spontaneouls strenth good Physical Exam Vital signs: Vital Signs 08/20/18 16:00 08/20/18 20:00 08/21/18 00:00 Temperature 98.2 F 97.5 F L 97.6 F Pulse Rate 78 81 76 Respiratory Rate 18 20 20 Blood Pressure 133/63 127/64 138/80 Pulse Oximetry 97 98 93 L 08/21/18 04:00 08/21/18 08:00 08/21/18 12:00 Temperature 97.8 F 98 F 98 F Pulse Rate 75 67 63 Respiratory Rate 20 18 18 Blood Pressure 159/87 H 146/84 H 153/67 H Pulse Oximetry 97 96 96 Intake & Output 08/20/18 08/21/18 08/21/18 18:59 06:59 18:59 Intake Total 1060 / 1060 Output Total 700 / 700 Balance 360 / 360 Intake: IV 100 / 100 Oral 960 / 960 Output: Urine 650 / 650 Emesis 50 / 50 Other: # Voids 2 3 Date of Last Bowel Movement 08/20/18 08/20/18 # Bowel Movements 1 # Emeses 1 Narrative: GENERAL: no acute distress, SKIN: Warm and dry. HEENT: Normocephalic. No scleral icterus. No injection or drainage. PERRLA, MOM. NECK: Supple, trachea midline. No JVD or lymphadenopathy. CARDIOVASCULAR: irregularly irregular rhtyhm RESPIRATORY: Breath sounds equal bilaterally. No accessory muscle use. GASTROINTESTINAL: Abdomen soft, non-tender, nondistended. MUSCULOSKELETAL: No cyanosis, or edema. BACK: Nontender without obvious deformity. No CVA tenderness. NEURO: AAO x3, no focal deficits, motor system 5/5 x 4. Speech clear. Results - Labs CBC & Chem 7: 08/20/18 07:55 08/20/18 07:55 Assessment and Plan - Assessment (1) Atrial fibrillation Code(s): I48.91 - Unspecified atrial fibrillation Status: Chronic (2) Hypertension Code(s): I10 - Essential (primary) hypertension Status: Chronic (3) Subdural hemorrhage Code(s): I62.00 - Nontraumatic subdural hemorrhage, unspecified Status: Acute - Plan This is a 73-year-old CF with PMHx of HTN, Mild Dementia, Etoh abuse, Atrial fibrillation on anticoagulation with Xarelto, and prior embolic strokes who presented to the ED after a fall with CT brain showing a 7-8 mm R subdural with 4-5 mm of right to left midline shift with evidence of prior strokes in her right occipital lobe and left cerebellum. Hx of prior embolic stroke in 2017 due to A. Fib and was Rx low-dose Xarelto. About a week and a half prior to admission she had followed up with Dr. Castillo and Xarelto had been increased to 20mg QD. Last dose of Xarelto was at 19:00 on 08/14. Unfortunately , her last stroke occurred after Xarelto was held following surgery for abdominal abscess. Will need to hold xarelto currently, HD#5 1. NEURO: R 7-8 mm Subdural hematoma with midline shift Fall/ History of embolic Stroke Chronic anticoagulation with Xarelto due to history of stroke/ A fib--on hold Mild dementia/Peripheral Neuropathy Prior history of alcohol dependence Clinically stable, cont. Neuro checks Ct Head on 08/18: Stable right subdural hematoma with minimal effacement of the cortical sulci Cont. Keppra for seizure prophylaxis per Dr. Guallpa recommendations HOLD Rivaroxaban and aspirin for 2wks per NeuroSx, cont. Thiamine/MV Continue Denia for neuropathy Per NeuroSx Reccs 08/18: 73yoF with acute SDH small with small midline shift, neurologically intact, last dose of Xarelto 7pm on 08/14 required due to a fib / recent stroke Follow up CTs stable. Plan: Continue with neuro checks Keppra 500mg BID for sz prophylaxis (no history of seizures) Not planning to reverse Xarelto but will need to hold ~>2 weeks. Continue to increase activity with assistance. OP ff up with Neurology/Neurosurgery FF up Head CT in 2 weeks as OP 2.CV Hypertension, better readings Hyperlipidemia Atrial fibrillation- rate controlled Metoprolol to 25 mg BID Cont. Lasix, Lisinopril, and Statin 3. GERD Cont. PPI 4. HEME Chronic anticoagulation with rivaroxaban Iron deficiency Erythrocyte macrocytosis Continue FeSulfate 5. Hypothyroidism TSH 0.714 Continue Synthroid 6. DVT PPX: SCD's, avoid pharmacologic DVT prophylaxis due to subdural hematoma. 7. Disposition: Monitor BP's. F/U Neuro Sx reccs. Patient is critically ill with subdural hematoma and is at risk for further deterioration including expansion of subdural hematoma requiring emergent crani and/or resulting in loss of airway protection. It may be best for her to go to a SNF rather than home when she is stable for D/C. Case mgmt consulted. did well ambulating- d/w daughter- choice of SNF- [facility] DC today to SNF Code Status: full
--- NOTE | 2018-08-21 13:09 | P.DS ---
Date of admission: 08/15/18 21:35 Primary care physician: UNKNOWN Anticipated date of discharge: 08/21/18 Brief History from admission: 73-year-old left-hand dominant female with past medical history of hypertension, chronic atrial fibrillation on anticoagulation with Xarelto, hyperlipidemia, prior embolic strokes, prior history of EtOH abuse, reported mild dementia. Her sister lives with her and they were walking in the park at around 3:30 PM on 08/15. Patient usually ambulates with a walker but she had handed that off to her sister and immediately thereafter tripped over the wheel stop and fell hitting the right side of her head on concrete. She had no LOC or witnessed seizure activity. She wanted to go home but she had a headache so her sister urged her to be evaluated. No nausea, vomiting, visual changes, neck pain. Workup in the ED included CT brain with ~7-8 mm right subdural with 4-5 mm of right to left midline shift. There is evidence of prior strokes in her right occipital lobe, left cerebellum. Patient has had a prior embolic stroke in June 2018 in the setting of A fib and was prescribed low-dose Xarelto after that. About a week and a half ago she had followed up with Dr. Castillo and xarelto had been increased to 20 mg p.o. daily. Her last dose of Xarelto was at 19:00 on 08/14. Unfortunately, her last stroke occurred after xarelto was held following surgery for abdominal abscess. Will obviously need to hold xarelto currently, however will defer reversal with Kcentra at this time per discussion with Dr. Guallpa. Discussed risk/benefits with patient and her sister. Patient update on day of discharge: awake and alert a fib rhythm- but rate controlled awake and alert spontaneous and very motivated DS: Diagnosis - Discharge Diagnosis (1) Atrial fibrillation Status: Chronic (2) Hypertension Status: Chronic (3) Subdural hemorrhage Status: Acute DS: Summary Hospital Course: This is a 73-year-old CF with PMHx of HTN, Mild Dementia, Etoh abuse, Atrial fibrillation on anticoagulation with Xarelto, and prior embolic strokes who presented to the ED after a fall with CT brain showing a 7-8 mm R subdural with 4-5 mm of right to left midline shift with evidence of prior strokes in her right occipital lobe and left cerebellum. Hx of prior embolic stroke in 2017 due to A. Fib and was Rx low-dose Xarelto. About a week and a half prior to admission she had followed up with Dr. Castillo and Xarelto had been increased to 20mg QD. Last dose of Xarelto was at 19:00 on 08/14. Unfortunately , her last stroke occurred after Xarelto was held following surgery for abdominal abscess. Will need to hold xarelto currently, HD#5 1. NEURO: R 7-8 mm Subdural hematoma with midline shift Fall/ History of embolic Stroke Chronic anticoagulation with Xarelto due to history of stroke/ A fib--on hold Mild dementia/Peripheral Neuropathy Prior history of alcohol dependence Clinically stable, cont. Neuro checks Ct Head on 08/18: Stable right subdural hematoma with minimal effacement of the cortical sulci Cont. Keppra for seizure prophylaxis per Dr. Guallpa recommendations HOLD Rivaroxaban and aspirin for 2wks per NeuroSx, cont. Thiamine/MV Continue Denia for neuropathy Per NeuroSx Reccs 08/18: 73yoF with acute SDH small with small midline shift, neurologically intact, last dose of Xarelto 7pm on 08/14 required due to a fib / recent stroke Follow up CTs stable. Plan: Continue with neuro checks Keppra 500mg BID for sz prophylaxis (no history of seizures) Not planning to reverse Xarelto but will need to hold ~>2 weeks. Continue to increase activity with assistance. OP ff up with Neurology/Neurosurgery FF up Head CT in 2 weeks as OP 2.CV Hypertension, better readings Hyperlipidemia Atrial fibrillation- rate controlled Metoprolol to 25 mg daily Cont. Lasix, Lisinopril, and Statin 3. GERD Cont. PPI 4. HEME Chronic anticoagulation with rivaroxaban Iron deficiency Erythrocyte macrocytosis Continue FeSulfate Xarelto on hold- restart in 2 weeks 5. Hypothyroidism TSH 0.714 Continue Synthroid 6. DVT PPX: SCD's, avoid pharmacologic DVT prophylaxis due to subdural hematoma. 7. Disposition: Monitor BP's. F/U Neuro Sx reccs. best for her to go to a SNF rather than home when she is stable for D/C. Case mgmt consulted. did well ambulating- d/w daughter- choice of SNF- [facility] DC today to SNF Code Status: full - Time Spent with Patient Total time spent providing and/or coordinating discharge services: - Quality: VTE Deep Vein Thrombosis/Pulmonary Embolism Present on Admission: No Exam Vital signs: Vital Signs 08/20/18 16:00 08/20/18 20:00 08/21/18 00:00 Temperature 98.2 F 97.5 F L 97.6 F Pulse Rate 78 81 76 Respiratory Rate 18 20 20 Blood Pressure 133/63 127/64 138/80 Pulse Oximetry 97 98 93 L 08/21/18 04:00 08/21/18 08:00 08/21/18 12:00 Temperature 97.8 F 98 F 98 F Pulse Rate 75 67 63 Respiratory Rate 20 18 18 Blood Pressure 159/87 H 146/84 H 153/67 H Pulse Oximetry 97 96 96 Intake & Output 08/20/18 08/21/18 08/21/18 18:59 06:59 18:59 Intake Total 1060 / 1060 Output Total 700 / 700 Balance 360 / 360 Intake: IV 100 / 100 Oral 960 / 960 Output: Urine 650 / 650 Emesis 50 / 50 Other: # Voids 2 3 Date of Last Bowel Movement 08/20/18 08/20/18 # Bowel Movements 1 # Emeses 1 Results - Impressions ITS Impressions Chest X-Ray 08/15/18 00:00 CONCLUSION: 1. Minimal bibasilar atelectatic changes with no confluent infiltrate. 2. Compensated cardiomegaly. 3. Degenerative changes in both shoulders. There is actual osseous deformity of the proximal right humerus, unchanged Head CT 08/18/18 00:00 CONCLUSION: 1. Stable right subdural hematoma with minimal effacement of the cortical sulci. . Discharge Plan - Discharge Disposition Patient Disposition: Discharge to SNF - Discharge Condition Condition: Stable - Discharge Order Discharge Orders: Discharge Order (Routine); Ordered 08/21/18 Ordered By: Jasson Jimenez - Discharge Details Anticipated Discharge Date: 08/21/18 - Physicians Team Primary Care Provider: UNKNOWN, Attending Provider: Jasson Jimenez Other Providers: [facility]
== END 2018-08-21 15:02 ==
LOC: NEPC 16:15 → NEDA 21:35 → N03 08-16 00:15 → N05 08-19 23:46
PROVIDERS: ADMIT Internal Medicine; ATTEND Internal Medicine